=== PATIENT | female | born 1935 | race Caucasian/White ===

== ENCOUNTER 2016-12-22 12:59 | Emergency (ER) | payer OTHER, MEDICARE ==
[~2016-12-22] VITALS: Ht 152.4 cm; Wt 71.0 kg
[~2016-12-22 12:59] MED LIST: ASPI-232 PO; DMD20 PO; ERGO500037 PO; ISOS60TA25 PO; LISI2.5T5 PO; LORA10TA44 PO; MONT1TAB3 PO; NTRGSL4 SL; OXYC-57 PO; POTA20TA16 PO; PRED10TA PO; TEMA30CA4 PO
[2016-12-22 13:01] VITALS: Ht 152.4 cm; Wt 71.0 kg
[2016-12-22 13:29] LABS: BASO % 0.4 %; BASO ABS # 0.03 K/uL (0-0.2); COMPLETE YES; EOS % 3.3 %; HEMATOCRIT 40.1 % (37-47); IG% 0.1 %; LYMPH % 35.8 %; LYMPH ABS # 2.99 K/uL (1.2-3.4); MEAN CELL VOLUME 89.1 fL (80-100); MEAN CORPUSCULAR HEMOGLOBIN 29.8 pg (25-34); MEAN CORPUSCULAR HGB CONC 33.4 g/dl (32-36); MEAN PLATELET VOLUME 9.8 fL (7.4-10.4); MONO % 9.4 %; PLATELET COUNT 217 K/uL (130-400); WHITE BLOOD COUNT 8.36 K/uL (4.8-10.8)
[2016-12-22 13:34] LABS: MANUAL MICROSCOPIC REQUIRED? NO; REVIEW REQ? NO; URINE APPEARANCE CLEAR (CLEAR); URINE BILIRUBIN NEG (NEG); URINE COLOR YELLOW; URINE EPITHELIAL CELL AUTO 0-5 /lpf (0-5); URINE NITRITE NEG (NEG); URINE PH 6.5 (4.5-7.5); URINE SPECIFIC GRAVITY 1.017 (1.000-1.030); UROBILINOGEN NEG (NEG); ZZUR CULT IF INDIC CLEAN CATCH NO
[2016-12-22 13:57] LABS: BUN/CREATININE RATIO 18.9 (10-20); CALCIUM 9.3 mg/dl (8.5-10.1); CREATININE 0.89 mg/dl (0.60-1.20); POTASSIUM 4.2 mmol/L (3.5-5.1)
[2016-12-22 14:00] LABS: ALB/GLOB RATIO 1.3 (0.9-2)
[2016-12-22] MEDS ORDERED: MoRPHine SULFATE 2 MG/ML CARP IV STA (14:02)
[2016-12-22] MEDS ORDERED: ONDANSETRON INJ 2 MG/ML 2 ML VIAL IV STA (14:02)
[2016-12-22] MEDS ORDERED: ATEN-175 PO (14:15)
[2016-12-22] MEDS ORDERED: DMD20 PO (14:15)
[2016-12-22] MEDS ORDERED: LINA1CAP2 PO (14:15)
[2016-12-22] MEDS ORDERED: RRALBUT083 NEB (14:16)
--- NOTE | 2016-12-22 14:47 | DIAGNOSTIC IMAGING REPORT ---
LUMBAR SPINE CT CT DOSE: HISTORY: Low back pain. TECHNIQUE: Multiaxial CT images of the lumbar spine were performed and reformatted in the sagittal and coronal plane without the use of contrast. COMPARISON: Lumbar spine CT 09/25/2014. FINDINGS: Super endplate central compression at L1 remains unchanged. This could be due to a Schmorl's node or old compression deformity. No acute fractures identified within the lumbar spine. Fusion of the L4-5 facets. There is grade I anterolisthesis of L3 on L4 and L4 on L5, unchanged. Moderate facet degenerative changes within the mid lumbar spine. The visualized sacrum is intact. Mild central canal narrowing at L2-L3, and L4-L5. Moderate to severe central canal narrowing at L3-L4, unchanged. IMPRESSION: No significant change compared to the prior study. No acute fractures. Degenerative changes as described above most pronounced at the L3-L4 level. Electronically signed by: Urbano Merchant M.D. 12/22/2016 2:45 PM Dictated Date/Time: 12/22/2016 2:41 PM
--- NOTE | 2016-12-22 14:56 | DIAGNOSTIC IMAGING REPORT ---
ABDOMEN AND PELVIS CT WITHOUT CONTRAST CT DOSE: 746.63 mGy.cm HISTORY: Right lower quadrant pain. eval for right stone TECHNIQUE: Multiaxial CT images of the abdomen and pelvis were performed without the use of intravenous and oral contrast according to the standard department stone protocol. COMPARISON STUDY: Abdomen and pelvis CT 09/25/2014. FINDINGS: There is a punctate stone within the upper pole the right kidney. No left renal calculi. No hydronephrosis. Punctate cortical calcification within the left kidney. A 2.7 cm gallstone, unchanged. No ureteral or bladder calculi. The uterus is surgically absent. Small hiatus hernia. Stable 6 mm lower lobe nodule and stable 4 mm subpleural nodule on image 44. Therefore, these are considered to be benign given the greater than 2 year stability. No acute fractures identified. Suboptimal evaluation for bowel pathology due to the lack of intravenous and oral contrast. However, there is no definite bowel wall thickening or obstruction. Colonic diverticulosis. The appendix appears to be surgically absent. Bilateral renal hypodense lesions are incompletely characterized on this study but are not significantly changed. The unenhanced liver, spleen, adrenal glands, and pancreas are unremarkable. IMPRESSION: 1. Right-sided nephrolithiasis. No hydronephrosis. 2. Cholelithiasis. 3. Additional stable findings as described above. Electronically signed by: Urbano Merchant M.D. 12/22/2016 2:54 PM Dictated Date/Time: 12/22/2016 2:45 PM
[2016-12-22] MEDS ORDERED: OXYC1TAB3 PO (15:30)
[2016-12-22 15:47] VITALS: BP 111/58; PULSE 58; TEMP 36.7; O2SAT 96
--- NOTE | 2016-12-22 17:34 | EMERGENCY ROOM VISIT NOTE ---
History Report prepared by James: Emily Fontana Under the Supervision of: Dr. Bob Gibbons M.D. First contact with patient: 13:51 Chief Complaint: ABDOMINAL PAIN Stated Complaint: LOWER ABD & RT LEG PAIN Nursing Triage Summary: Triage note: Pt reports right abd pain "the pain shoots down my groin and into my right knee." pt reports she has pain for the past week. 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 History of Present Illness The patient is a 81 year old female who presents to the Emergency Room with complaints of intermittent right lower abdominal pain starting 2 days ago. She describes the pain as a hot burning feeling. The pain shoots down into her groin and right knee. She used a hot compress yesterday for her knee which relieved her pain. She has nausea. She denies any melena, urinary symptoms, back pain, fever, or vomiting. She had nerve damage in her groin 15 years ago during a heart catheterization. She was unable to walk for some time. She is no longer having those symptoms, but states that the pain shooting down her right leg feels similar to her experience then. She has a history of IBS and is often constipated. Her last bowel movement was yesterday morning. She has hemorrhoids and has had blood in her stool for the past 30 years. She has had an appendectomy. Source of History: patient Onset: 2 days ago Position: abdomen (RLQ) Quality: burning Timing: intermittent Associated Symptoms: + hematochezia, + nausea, No back pain, No fevers, No melena, No urinary symptoms, No vomiting Note: Pt reports groin pain, right leg pain. Review of Systems See HPI for pertinent positives & negatives. A total of 10 systems reviewed and were otherwise negative. Past Medical & Surgical Medical Problems: (1) Asthma, Unspecified (2) Coronary Atherosclerosis Of [place] Coronary Vessel (3) Hyperlipidemia Nec/Nos (4) Hypertension Nos (5) Mitral Valve Disorder Family History Heart disease Social History Smoking Status: Never Smoker Alcohol Use: none Drug Use: none Marital Status: Housing Status: lives with significant other Occupation Status: retired Current/Historical Medications Scheduled Aspirin (Aspir-81), 81 MG PO DAILY Atenolol (Tenormin), 100 MG PO QPM Ergocalciferol (Vitamin D 90819 Unit), 50,000 UNIT PO WK Isosorbide Mononitrate Ext Rel (Imdur Ext Rel), 60 MG PO BID Linaclotide (Linzess), 290 MCG PO QAM Lisinopril (Lisinopril), 2.5 MG PO DAILY Montelukast Sodium (Singulair), 10 MG PO DAILY Nitroglycerin (Nitrostat), 0.4 MG SL UD Potassium Ext Rel (Klor-Con), 20 MEQ PO DAILY Prednisone (Prednisone), 10 MG PO UD Temazepam (Restoril), 30 MG PO HS Torsemide (Torsemide), 20 MG PO QAM Scheduled PRN Albuterol Sulf (Albuterol Sulfate), 1 VIAL NEB Q4 PRN for SOB/Wheezing Oxycodone Ir (Roxicodone Ir), 2.5 MG PO Q4H PRN for Pain Allergies Coded Allergies: Penicillins (Verified Allergy, Intermediate, HIVES, 12/22/16) Sulfa Drugs (Verified Allergy, Intermediate, 12/22/16) Physical Exam Vital Signs Date Time Temp Pulse Resp B/P Pulse Ox O2 Delivery O2 Flow Rate FiO2 12/22/16 15:47 36.7 58 16 111/58 96 12/22/16 15:26 58 16 111/58 96 Room Air 12/22/16 14:13 56 16 112/55 96 12/22/16 13:01 36.7 64 20 106/56 97 Room Air Physical Exam Constitutional: Vital signs reviewed. Eyes: Pupils are equal round reactive to light. Conjunctiva are noninjected. ENT: Pharynx is clear without erythema or exudate. Mucous membranes are moist. Neck supple without meningeal signs. Respiratory: Clear to auscultation bilaterally. Breath sounds are equal bilaterally. Cardiovascular: Regular rate and rhythm. No rubs or gallops. GI: Soft, nondistended. RLQ tenderness. No guarding. Bowel sounds are present. Musculoskeletal: No peripheral edema. Integumentary: No cyanosis. Neurological: The patient is awake and alert. No focal deficits. Motor and sensation intact throughout lower extremities bilaterally. Psychiatric: Normal affect. Medical Decision & Procedures ER Provider Diagnostic Interpretation: Radiology results as stated below per my review and the radiologist's interpretation: LUMBAR SPINE CT CT DOSE: HISTORY: Low back pain. TECHNIQUE: Multiaxial CT images of the lumbar spine were performed and reformatted in the sagittal and coronal plane without the use of contrast. COMPARISON: Lumbar spine CT 09/25/2014. FINDINGS: Super endplate central compression at L1 remains unchanged. This could be due to a Schmorl's node or old compression deformity. No acute fractures identified within the lumbar spine. Fusion of the L4-5 facets. There is grade I anterolisthesis of L3 on L4 and L4 on L5, unchanged. Moderate facet degenerative changes within the mid lumbar spine. The visualized sacrum is intact. Mild central canal narrowing at L2-L3, and L4-L5. Moderate to severe central canal narrowing at L3-L4, unchanged. IMPRESSION: No significant change compared to the prior study. No acute fractures. Degenerative changes as described above most pronounced at the L3-L4 level. Electronically signed by: Urbano Merchant M.D. 12/22/2016 2:45 PM Dictated Date/Time: 12/22/2016 2:41 PM ABDOMEN AND PELVIS CT WITHOUT CONTRAST CT DOSE: 746.63 mGy.cm HISTORY: Right lower quadrant pain. eval for right stone TECHNIQUE: Multiaxial CT images of the abdomen and pelvis were performed without the use of intravenous and oral contrast according to the standard department stone protocol. COMPARISON STUDY: Abdomen and pelvis CT 09/25/2014. FINDINGS: There is a punctate stone within the upper pole the right kidney. No left renal calculi. No hydronephrosis. Punctate cortical calcification within the left kidney. A 2.7 cm gallstone, unchanged. No ureteral or bladder calculi. The uterus is surgically absent. Small hiatus hernia. Stable 6 mm lower lobe nodule and stable 4 mm subpleural nodule on image 44. Therefore, these are considered to be benign given the greater than 2 year stability. No acute fractures identified. Suboptimal evaluation for bowel pathology due to the lack of intravenous and oral contrast. However, there is no definite bowel wall thickening or obstruction. Colonic diverticulosis. The appendix appears to be surgically absent. Bilateral renal hypodense lesions are incompletely characterized on this study but are not significantly changed. The unenhanced liver, spleen, adrenal glands, and pancreas are unremarkable. IMPRESSION: 1. Right-sided nephrolithiasis. No hydronephrosis. 2. Cholelithiasis. 3. Additional stable findings as described above. Electronically signed by: Urbano Merchant M.D. 12/22/2016 2:54 PM Dictated Date/Time: 12/22/2016 2:45 PM Laboratory Results 12/22/16 13:15 Red Blood Count 4.50, Mean Corpuscular Volume 89.1, Mean Corpuscular Hemoglobin 29.8, Mean Corpuscular Hemoglobin Concent 33.4, Mean Platelet Volume 9.8, Neutrophils (%) (Auto) 51.0, Lymphocytes (%) (Auto) 35.8, Monocytes (%) (Auto) 9.4, Eosinophils (%) (Auto) 3.3, Basophils (%) (Auto) 0.4, Neutrophils # (Auto) 4.26, Lymphocytes # (Auto) 2.99, Monocytes # (Auto) 0.79, Eosinophils # (Auto) 0.28, Basophils # (Auto) 0.03 12/22/16 13:15 Test 12/22/16 13:10 12/22/16 13:15 Urine Color YELLOW Urine Appearance CLEAR (CLEAR) Urine pH 6.5 (4.5-7.5) Urine Specific [place] 1.017 (1.000-1.030) Urine Protein NEG (NEG) Urine Glucose (UA) NEG (NEG) Urine Ketones NEG (NEG) Urine Occult Blood 2+ (NEG) Urine Nitrite NEG (NEG) Urine Bilirubin NEG (NEG) Urine Urobilinogen NEG (NEG) Urine Leukocyte Esterase NEG (NEG) Urine WBC (Auto) 0 /hpf (0-5) Urine RBC (Auto) >30 /hpf (0-4) Urine Hyaline Casts (Auto) 0 /lpf (0-5) Urine Epithelial Cells (Auto) 0-5 /lpf (0-5) Urine Bacteria (Auto) NEG (NEG) White Blood Count 8.36 K/uL (4.8-10.8) Red Blood Count 4.50 M/uL (4.2-5.4) Hemoglobin 13.4 g/dL (12.0-16.0) Hematocrit 40.1 % (37-47) Mean Corpuscular Volume 89.1 fL (80-100) Mean Corpuscular Hemoglobin 29.8 pg (25-34) Mean Corpuscular Hemoglobin Concent 33.4 g/dl (32-36) Platelet Count 217 K/uL (130-400) Mean Platelet Volume 9.8 fL (7.4-10.4) Neutrophils (%) (Auto) 51.0 % Lymphocytes (%) (Auto) 35.8 % Monocytes (%) (Auto) 9.4 % Eosinophils (%) (Auto) 3.3 % Basophils (%) (Auto) 0.4 % Neutrophils # (Auto) 4.26 K/uL (1.4-6.5) Lymphocytes # (Auto) 2.99 K/uL (1.2-3.4) Monocytes # (Auto) 0.79 K/uL (0.11-0.59) Eosinophils # (Auto) 0.28 K/uL (0-0.5) Basophils # (Auto) 0.03 K/uL (0-0.2) RDW Standard Deviation 43.6 fL (36.4-46.3) RDW Coefficient of Variation 13.3 % (11.5-14.5) Immature Granulocyte % (Auto) 0.1 % Immature Granulocyte # (Auto) 0.01 K/uL (0.00-0.02) Anion Gap 6.0 mmol/L (3-11) Est Creatinine Clear Calc Drug Dose 42.9 ml/min Estimated GFR () 70.0 Estimated GFR (Non- 60.4 BUN/Creatinine Ratio 18.9 (10-20) Calcium Level 9.3 mg/dl (8.5-10.1) Total Bilirubin 0.4 mg/dl (0.2-1) Aspartate Amino Transf (AST/SGOT) 19 U/L (15-37) Alanine Aminotransferase (ALT/SGPT) 24 U/L (12-78) Alkaline Phosphatase 77 U/L (45-117) Total Protein 7.4 gm/dl (6.4-8.2) Albumin 4.2 gm/dl (3.4-5.0) Globulin 3.2 gm/dl (2.5-4.0) Albumin/Globulin Ratio 1.3 (0.9-2) Lipase 803 U/L (73-393) Laboratory results as reviewed by me. Medications Administered Medications (Trade) Dose Ordered Sig/Gris Route Start Time Stop Time Status Last Admin Dose Admin Morphine Sulfate (MoRPHine SULFATE INJ) 2 mg NOW STAT IV 12/22/16 14:02 12/22/16 14:04 DC 12/22/16 14:13 2 MG Ondansetron HCl (Zofran Inj) 4 mg NOW STAT IV 12/22/16 14:02 12/22/16 14:04 DC 12/22/16 14:12 4 MG ED Course 1353: The patient was evaluated in room A9. A complete history and physical exam was performed. 1402: Zofran Inj 4 mg IV, Morphine Sulfate 2 mg IV. 1420: I reevaluated the patient. She is feeling better after the morphine. I discussed the test results with her. She informed me she has a history of large gallstones and drinks 8 glasses of wine per week. She denies any upper or mid abdominal pain. There is no tenderness there on exam. 1525: I reevaluated the patient. She feels well at this time. I discussed the test results with her and her family. She will follow up with her PCP later this week. I discussed with her the precautions regarding her pain medications. She verbalized understanding and agreement. She will be discharged home. Medical Decision This is an 81-year-old female who presents with right groin pain rating down her leg. Differential diagnosis includes hernia, kidney stone, pelvic mass, UTI , radiculopathy, neuropathy. I did perform a limited focused review of portions of the patient's old chart on the electronic medical record. The patient has had no recent pertinent visits to this hospital. I did evaluate the patient as noted above. Patient is presenting with pain across her right groin with some intermittent radiation down her right leg. She does have a history of similar pain in her leg from a nerve injury during a cardiac catheterization. She is tender in the right lower abdomen. She does state that the pain is worse when she sits up. She doesn't have any swelling to her leg and is neurologically intact. IV access was established. She was treated with IV morphine 2 mg IV and Zofran IV. I did personally review the patient's urinalysis as described above. I did order and review the patient's blood work as noted in the electronic medical record. Her lipase is elevated over 800. She does state that she has a history of gallstones and drinks about 8 glasses of wine per week. She does not have any upper abdominal pain or tenderness. She does state that she'll stop drinking wine and have her doctor recheck the lipase. I did order a CT of the abdomen and pelvis and lumbosacral spine. I did review the images myself as well as the radiology report as described above. She does have degenerative changes in the lumbar spine but no acute fractures. She also has a right kidney stone but no ureterolithiasis or hydronephrosis. I did discuss the test results with the patient and her family. She is feeling better. At this time the cause of her symptoms is unclear. It is possible she may have passed a kidney stone but I did recommend she follow closely with her doctor for further evaluation. She was discharged with a prescription for oxycodone and given precautions regarding this medication. Impression Primary Impression: Right lower quadrant abdominal pain Additional Impressions: Right leg pain Elevated lipase Scribe Attestation The scribe's documentation has been prepared under my direct and personally reviewed by me in its entirety. I confirm that the note above accurately reflects all work, treatment, procedures, and medical decision making performed by me. Departure Information Dispostion Home / Self-Care Prescriptions Oxycodone Ir (Roxicodone Ir) 5 Mg Tab 2.5 MG PO Q4H Y for Pain, #14 TAB Prov: Bob Gibbons M.D. 12/22/16 Referrals Pari Bales M.D. (PCP) Forms HOME CARE DOCUMENTATION FORM, IMPORTANT VISIT INFORMATION Patient Instructions ED Abd Pain Unkn Cause Fem, My [facility] Additional Instructions You have been examined and treated today on an emergency basis only. This is not a substitute for, or an effort to provide, complete comprehensive medical care. It is impossible to recognize and treat all injuries or illnesses in a single emergency department visit. It is therefore important that you follow up closely with your physician. Call as soon as possible for an appointment. Have your doctor repeat your lipase which was elevated today. Return for worsening symptoms or if you develop fever, vomiting, loss of control of your bowel or bladder, numbness or weakness to your legs, numbness to your private area, difficulty urinating, or any other concerning symptoms. Problem Qualifiers
== END 2016-12-22 15:48 | disposition home or self-care (01) ==
LOC: C.EDB 12:59 → C.EDA 15:48
DX: R10.31 Right lower quadrant pain (principal); M79.604 Pain in right leg; R79.89 Other specified abnormal findings of blood chemistry; J45.909 Unspecified asthma, uncomplicated; I25.10 Atherosclerotic heart disease of native coronary artery without angina pectoris; E78.5 Hyperlipidemia, unspecified; I10 Essential (primary) hypertension; Z79.82 Long term (current) use of aspirin; Z79.899 Other long term (current) drug therapy

== ENCOUNTER 2022-11-18 21:55 | Inpatient (IN) ==
[2022-11-18] MEDS ORDERED: ACETAMINOPHEN 1,000 MG/100 ML VIAL IV STA (22:19)
--- NOTE | 2022-11-18 22:31 | Emergency Department Note ---
History of Present Illness General Chief complaint: Fall Stated complaint: FALL W/ RIGHT HIP PAIN Time Seen by Provider: 11/18/22 22:05 History of Present Illness This 87-year-old female who normally goes to [facility] presents to the ER for fall complaining of right hip pain. She also states she struck her head. No blood thinners. Patient denies loss of conscious, neck pain, chest pain, abdominal pain, back pain, numbness, tingling, localized weakness. No prior hip fracture. Home Medications Medication Instructions Recorded Confirmed Type albuterol sulfate 2.5 mg/3 mL 2.5 mg continuous nebulization Q6 11/19/22 11/19/22 History (0.083 %) solution for nebulization PRN Shortness Of Breath aspirin 81 mg tablet,delayed 81 mg PO DAILY 11/19/22 11/19/22 History release ergocalciferol (vitamin D2) 1,250 1,250 mcg PO WK 11/19/22 11/19/22 History mcg (50,000 unit) capsule isosorbide mononitrate 120 mg 60 mg PO BID 11/19/22 11/19/22 History tablet,extended release 24 hr linaclotide 290 mcg capsule 290 mcg PO DAILY 11/19/22 11/19/22 History (Linzess) metoprolol succinate 25 mg 25 mg PO BID 11/19/22 11/19/22 History tablet,extended release 24 hr nitroglycerin 0.4 mg sublingual 0.4 mg sublingual UD PRN Chest Pain 11/19/22 11/19/22 History tablet omeprazole 40 mg capsule,delayed 40 mg PO DAILYBL 11/19/22 11/19/22 History release potassium chloride 20 mEq 20 meq PO DAILY PRN if taking 11/19/22 11/19/22 History tablet,extended release(part/cryst) torsemide sertraline 100 mg tablet 100 mg PO QPM 11/19/22 11/19/22 History temazepam 30 mg capsule 30 mg PO HS 11/19/22 11/19/22 History torsemide 20 mg tablet 20 mg PO DAILY PRN Fluid Retention 11/19/22 11/19/22 History Allergies Allergy/AdvReac Type Severity Reaction Status Date / Time Penicillins Allergy Intermediate HIVES Verified 08/14/22 09:26 Sulfa (Sulfonamide Allergy Intermediate Verified 08/14/22 09:26 Antibiotics) Past Med/Surg History Medical History (Updated 11/19/22 @ 18:11 by Fide Mosley MD) Fall Irritable bowel disease Surgical History (Updated 11/20/22 @ 15:48 by Wilder Hdz MD) History of hip surgery 11/19/22: (Wilder) R long TFN or IT fx History of right shoulder replacement Family History Other No significant family history Social History Smoking Status: Never smoker Hx Alcohol Use: No Hx Substance Use: No Preferred Language: Malian Communication Ability: Effective Supply Cataloguer Required: No Beliefs That Will Affect Care: None Current Living Situation: Alone Current Living Situation Comment: lives in 1 story condo, no steps Other Information That Helps Us Care for You: No Feels Safe at Home: Yes Safety Concerns: Feels Safe At This Time Assistive Devices: Walker Assistive Devices Comment: has a walker at home, was given to her by neighbor Review of Systems A total of 10 systems reviewed and were otherwise negative Physical Exam Vital Signs Vital Signs - 24 hr 11/18/22 22:52 11/18/22 22:52 11/19/22 00:43 Temperature 36.6 C 36.6 C Temperature Source Oral Oral Pulse Rate 72 Pulse Rate [Apical] 72 67 Respiratory Rate 18 20 20 Respiratory Effort / Characteristics Non-Labored Non-Labored Respiratory Depth Normal Normal Blood Pressure 135/66 Blood Pressure [Right Arm] 135/66 107/53 L Blood Pressure Mean 89 Blood Pressure Mean [Right Arm] 89 71 Pulse Oximetry 98 98 96 Oxygen Delivery Method Room Air Room Air Room Air Sepsis Recent Fever Within 48 Hours No Sepsis New/Unexplained Change in Mental Status N/A Sepsis Action Taken by Nursing No Action Required PHYSICAL EXAM: VITALS: Vitals are noted on the nurse's note and reviewed by myself. Vital signs stable. GENERAL: Pleasant elderly female, in no acute distress, nondiaphoretic, well- developed well-nourished. SKIN: The skin was without obvious lacerations or abrasions. Capillary reflex less than 2 seconds. HEAD: Normocephalic atraumatic. EARS: External auditory canals clear, tympanic membranes pearly smart without erythema or effusion bilaterally. No hemotympanums. No haro sign. No mastoid tenderness. EYES: Pupils equal round and reactive to light and accommodation. Conjunctivae without injection, sclerae without icterus. Extraocular movements intact. NOSE: Patent, turbinates without inflammation or discharge. No sinus tenderness. No septal hematoma or bleeding. MOUTH: Mucous membranes moist. Pharynx without erythema or exudate. Uvula midline. Airway patent. Tongue does not deviate. NECK: Supple without nuchal rigidity. Cervical spine is nontender. Full range of motion of the neck without tenderness. No JVD. HEART: Regular rate and rhythm LUNGS: Clear to auscultation bilaterally without wheezes, rales or rhonchi. No dullness to percussion. No retractions or accessory muscle use. No chest wall tenderness. ABDOMEN: Positive bowel sounds x 4. Normal tympanic percussion. Soft, nontender, without masses or organomegaly. No guarding or rebound tenderness. MUSCULOSKELETAL: No tenderness of the thoracic or lumbar spine. Right hip tender to palpation with concerns for fracture as the leg is shortened and externally rotated. Full range of motion without tenderness to palpation in all other extremities. Peripheral pulses 2+. NEURO: Patient was alert and oriented to person place and time. Normal Mini- Mental status exam. Normal sensation to light and sharp touch. No focal neurological deficits. Course Administered Medications Acetaminophen (Acetaminophen 325 Mg Tab) 650 mg PO Q4H PRN PRN Reason: pain/fever Stop: 12/19/22 02:35 Last Admin: 11/20/22 12:53 Dose: 650 mg Documented By: Admin: 11/20/22 06:26 Dose: 650 mg Documented By: JACE Aspirin (Aspirin 325 Mg Ectab) [facility] [place]: 12/20/22 08:59 Last Admin: 11/20/22 10:32 Dose: 325 mg Documented By: JEROME Isosorbide Mononitrate (Isosorbide Quay Extended Rel 60 Mg Tabcr) 60 mg PO BIDM [facility] Stop: 12/19/22 07:59 Last Admin: 11/20/22 17:42 Dose: Not Given Documented By: Admin: 11/20/22 08:03 Dose: Not Given Documented By: Admin: 11/19/22 16:59 Dose: Not Given Documented By: Admin: 11/19/22 07:41 Dose: 60 mg Documented By: KEVIN Metoprolol Succinate (Metoprolol Succ 25mg Ext Rel Tab) 25 mg PO BID CONSUELO Stop: 12/19/22 08:59 Last Admin: 11/19/22 23:02 Dose: Not Given Documented By: Admin: 11/19/22 07:41 Dose: 25 mg Documented By: KEVIN Ondansetron HCl (Ondansetron Inj 2 Mg/Ml 2 Ml Vial) 4 mg IV Q6H PRN PRN Reason: Nausea And Vomiting Stop: 12/19/22 02:35 Last Admin: 11/19/22 22:11 Dose: 4 mg Documented By: JACE Pantoprazole Sodium (Pantoprazole 40 Mg Tab) 40 mg PO DAILY CONSUELO Stop: 12/19/22 08:59 Last Admin: 11/20/22 10:36 Dose: 40 mg Documented By: Admin: 11/19/22 07:41 Dose: 40 mg Documented By: KEVIN Polyethylene Glycol (Polyethylene (Miralax) 17 Gm Pack) 17 gm PO DAILY CONSUELO Stop: 12/19/22 08:59 Last Admin: 11/20/22 10:36 Dose: 17 gm Documented By: Admin: 11/19/22 07:40 Dose: Not Given Documented By: KEVIN Senna/Docusate Sodium (Docusate Sodium/Senna 50/8.6mg Tab) 2 tab PO HS [facility] Stop: 12/19/22 20:59 Last Admin: 11/20/22 20:03 Dose: Not Given Documented By: Admin: 11/19/22 23:04 Dose: 2 tab Documented By: JACE Sertraline HCl (Sertraline Hcl 100 Mg Tablet) 100 mg PO QPM CONSUELO Stop: 12/19/22 20:59 Last Admin: 11/20/22 20:03 Dose: 100 mg Documented By: Admin: 11/19/22 23:03 Dose: 100 mg Documented By: JACE Temazepam (Temazepam 15 Mg Capsule) 30 mg PO HS [facility] Stop: 12/19/22 20:59 Last Admin: 11/20/22 20:03 Dose: 30 mg Documented By: Admin: 11/19/22 23:06 Dose: 30 mg Documented By: JACE Tramadol HCl (Tramadol Hcl 50 Mg Tablet) 50 mg PO Q4H PRN PRN Reason: MODERATE Pain (4,5,6) & Pre PT Stop: 12/19/22 16:55 Last Admin: 11/19/22 19:35 Dose: 50 mg Documented By: JACE Discontinued Medications Bupivacaine HCl/Epinephrine Bitart (Bupivacaine/Epinephrine 0.5% Mpf 1:200,000 30 Ml Vial) Confirm Administered Dose 30 ml .ROUTE .STK-MED ONE Stop: 11/19/22 13:49 Last Admin: 11/19/22 15:15 Dose: 30 ml Documented By: [id number] Cefazolin Sodium (Cefazolin 2,000 Mg/15 Ml Iv Push) Confirm Administered Dose 2,000 mg IV .STK-MED ONE Stop: 11/19/22 13:56 Last Admin: 11/19/22 14:02 Dose: Not Given Documented By: SADE Ephedrine Sulfate (Ephedrine Sulfate 50 Mg/Ml Amp) 5 mg IV Q5M PRN PRN Reason: PACU Use Only-SBP<90 mmHg Stop: 11/19/22 22:03 Last Admin: 11/19/22 16:20 Dose: 5 mg Documented By: Admin: 11/19/22 16:05 Dose: 5 mg Documented By: NOY Acetaminophen (Ofirmev) 1,000 mg in 100 mls @ 400 mls/hr IV NOW STA Stop: 11/18/22 22:33 Last Infusion: 11/18/22 23:13 Dose: 0 mls/hr Documented By: Admin: 11/18/22 22:58 Dose: 400 mls/hr Documented By: BASHIR Lactated Ringer's (Lr) 1,000 mls @ 75 mls/hr IV .[id number] CONSUELO Stop: 11/19/22 15:55 Last Infusion: 11/19/22 17:31 Dose: 0 mls/hr Documented By: Admin: 11/19/22 02:44 Dose: 75 mls/hr Documented By: TEA Cefazolin Sodium (Ancef 2000mg) 2,000 mg in 15 mls @ 3.75 mls/min IV PREOP ONE; Protocol Stop: 11/19/22 14:04 Last Admin: 11/19/22 14:02 Dose: 3.75 mls/min Documented By: [id number] Tranexamic Acid (Tranexamic Acid / 0.7% Nacl) 1,000 mg in 100 mls @ 600 mls/hr IV NOW STA Stop: 11/19/22 15:08 Last Infusion: 11/19/22 17:27 Dose: 0 mls/hr Documented By: Admin: 11/19/22 15:10 Dose: 600 mls/hr Documented By: [id number] Cefazolin Sodium (Ancef 2000mg) 2,000 mg in 15 mls @ 3.75 mls/min IV Q8H CONSUELO; Protocol Stop: 11/20/22 05:48 Last Admin: 11/20/22 06:16 Dose: 3.75 mls/min Documented By: Admin: 11/19/22 22:10 Dose: 3.75 mls/min Documented By: JACE Lactated Ringer's (Lr) 1,000 mls @ 75 mls/hr IV .[id number] CONSUELO Stop: 11/20/22 06:49 Last Infusion: 11/20/22 06:17 Dose: 0 mls/hr Documented By: Admin: 11/19/22 17:46 Dose: 75 mls/hr Documented By: KAMARI Sodium Chloride (Nss 1000ml) 500 mls @ 999 mls/hr IV .Q31M ONE Stop: 11/20/22 17:52 Last Infusion: 11/20/22 18:20 Dose: 0 mls/hr Documented By: Admin: 11/20/22 17:43 Dose: 999 mls/hr Documented By: JEROME Linaclotide (Linaclotide 145 Mcg Capsule) 290 mcg PO DAILY [facility] Stop: 12/19/22 08:59 Last Admin: 11/20/22 10:36 Dose: Not Given Documented By: Admin: 11/19/22 08:38 Dose: Not Given Documented By: KEVIN Morphine Sulfate (Morphine Sulfate 2 Mg/Ml Carp) Confirm Administered Dose 2 mg .ROUTE .STK-MED ONE Stop: 11/19/22 01:53 Last Admin: 11/19/22 01:54 Dose: 2 mg Documented By: BASHIR Morphine Sulfate (Morphine Sulfate 2 Mg/Ml Carp) 2 mg IV Q3H PRN PRN Reason: Pain (6,7,8,9,10) Stop: 12/03/22 02:35 Last Admin: 11/19/22 06:35 Dose: 2 mg Documented By: TEA Medical Decision Making Medical Records Attestation: I reviewed the patient's medical records. Home Medications Current Medication List: was personally reviewed by me Laboratory Data Attestation: I reviewed the patient's lab results. 11/18/22 22:48 11/18/22 22:48 Lab Results 11/18/22 11/18/22 11/18/22 Range/Units 22:46 22:48 22:48 WBC 12.55 H (4.8-10.8) K/ul RBC 3.88 L (4.20-5.40) M/uL Hgb 11.3 L (12.0-16.0) g/dl Hct 33.9 L (37.0-47.0) % MCV 87.4 (80.0-100.0) fL MCH 29.1 (25.0-34.0) pg MCHC 33.3 (32.0-36.0) g/dL RDW Std Deviation 42.1 (36.4-46.3) fL RDW Coeff of Leonardo 13.2 (11.5-14.5) % Plt Count 252 (130-400) K/uL MPV 9.6 (9.4-12.4) fL Immature Gran % (Auto) 0.2 % Neut % (Auto) 76.7 % Lymph % (Auto) 14.6 % Quay % (Auto) 6.3 % Eos % (Auto) 1.8 % Baso % (Auto) 0.4 % Neut # (Auto) 9.62 H (1.40-6.50) K/uL Lymph # (Auto) 1.83 (1.2-3.4) K/uL Quay # (Auto) 0.79 H (0.11-0.59) K/uL Eos # (Auto) 0.23 (0-0.50) K/uL Baso # (Auto) 0.05 (0-0.2) K/uL Immature Gran # (Auto) 0.03 (0.01-0.20) K/uL PT 10.8 (9.0-12.0) Seconds INR 1.0 (0.9-1.1) APTT 26.0 (21.0-31.0) Seconds PTT Ratio 0.9 Sodium (136-145) mmol/L Potassium (3.5-5.1) mmol/L Chloride (98-107) mmol/L Carbon Dioxide (21-32) mmol/L Anion Gap (3-11) BUN (6-23) mg/dl Creatinine (0.6-1.2) mg/dl Est Cr Clr Drug Dosing ml/min Est GFR ( Amer) ml/min Est GFR (Non-Af Amer) ml/min BUN/Creatinine Ratio (10-20) Glucose (70-99(Fasting)) mg/dl Calcium (8.5-10.1) mg/dl Total Bilirubin (0.2-1.0) mg/dl AST (13-39) U/L ALT (7-52) U/L Alkaline Phosphatase (34-104) U/L Total Protein (6.0-8.3) gm/dl Albumin (3.4-5.0) gm/dl Globulin (2.5-4.0) gm/dl Albumin/Globulin Ratio (0.9-2) Urine Color Yellow Urine Appearance Clear (Clear) Urine pH 8.0 H (4.5-7.5) Ur Specific Iliff 1.011 (1.000-1.030) Urine Protein Negative (Negative) Urine Glucose (UA) Negative (Negative) Urine Ketones Negative (Negative) Urine Blood 1+ H (Negative) Urine Nitrite Negative (Negative) Urine Bilirubin Negative (Negative) Urine Urobilinogen Negative (Negative) Ur Leukocyte Esterase Negative (Negative) Urine WBC (Auto) 1-5 (0-5) /hpf Urine RBC (Auto) >30 H (0-4) /hpf U Hyaline Cast (Auto) 1-5 (0-5) /lpf U Epithel Cells (Auto) 10-20 H (0-5) /lpf Urine Bacteria (Auto) Negative (Negative) SARS-CoV-2, RNA, NAAT (NEGATIVE) 11/18/22 11/18/22 Range/Units 22:48 22:49 WBC (4.8-10.8) K/ul RBC (4.20-5.40) M/uL Hgb (12.0-16.0) g/dl Hct (37.0-47.0) % MCV (80.0-100.0) fL MCH (25.0-34.0) pg MCHC (32.0-36.0) g/dL RDW Std Deviation (36.4-46.3) fL RDW Coeff of Leonardo (11.5-14.5) % Plt Count (130-400) K/uL MPV (9.4-12.4) fL Immature Gran % (Auto) % Neut % (Auto) % Lymph % (Auto) % Quay % (Auto) % Eos % (Auto) % Baso % (Auto) % Neut # (Auto) (1.40-6.50) K/uL Lymph # (Auto) (1.2-3.4) K/uL Quay # (Auto) (0.11-0.59) K/uL Eos # (Auto) (0-0.50) K/uL Baso # (Auto) (0-0.2) K/uL Immature Gran # (Auto) (0.01-0.20) K/uL PT (9.0-12.0) Seconds INR (0.9-1.1) APTT (21.0-31.0) Seconds PTT Ratio Sodium 137 (136-145) mmol/L Potassium 3.8 (3.5-5.1) mmol/L Chloride 100 (98-107) mmol/L Carbon Dioxide 28 (21-32) mmol/L Anion Gap 9 (3-11) BUN 17 (6-23) mg/dl Creatinine 0.84 (0.6-1.2) mg/dl Est Cr Clr Drug Dosing 36.7 ml/min Est GFR ( Amer) 71.9 ml/min Est GFR (Non-Af Amer) 62.1 ml/min BUN/Creatinine Ratio 20.2 H (10-20) Glucose 117 H (70-99(Fasting)) mg/dl Calcium 9.6 (8.5-10.1) mg/dl Total Bilirubin 0.3 (0.2-1.0) mg/dl AST 22 (13-39) U/L ALT 11 (7-52) U/L Alkaline Phosphatase 66 (34-104) U/L Total Protein 7.0 (6.0-8.3) gm/dl Albumin 4.1 (3.4-5.0) gm/dl Globulin 2.9 (2.5-4.0) gm/dl Albumin/Globulin Ratio 1.4 (0.9-2) Urine Color Urine Appearance (Clear) Urine pH (4.5-7.5) Ur Specific Iliff (1.000-1.030) Urine Protein (Negative) Urine Glucose (UA) (Negative) Urine Ketones (Negative) Urine Blood (Negative) Urine Nitrite (Negative) Urine Bilirubin (Negative) Urine Urobilinogen (Negative) Ur Leukocyte Esterase (Negative) Urine WBC (Auto) (0-5) /hpf Urine RBC (Auto) (0-4) /hpf U Hyaline Cast (Auto) (0-5) /lpf U Epithel Cells (Auto) (0-5) /lpf Urine Bacteria (Auto) (Negative) SARS-CoV-2, RNA, NAAT NEGATIVE (NEGATIVE) Imaging Data Attestation: I personally reviewed and interpreted this imaging study as follows: Radiologist's Impression: Cervical Spine CT 11/18/22 22:10 Exam(s): CT C SPINE EXAM: CT Cervical Spine Without Intravenous Contrast CLINICAL HISTORY: Reason for exam: fall, HI. TECHNIQUE: Axial computed tomography images of the cervical spine without intravenous contrast. CTDI is 16.07 mGy and DLP is 322.65 mGy-cm. Automated exposure control was utilized for the study. A dose lowering technique was utilized adhering to the principles of ALARA. COMPARISON: No relevant prior studies available. FINDINGS: The vertebral body heights are maintained. There is no spondylolisthesis. The craniocervical junction is intact. The atlanto-dens interval is maintained. The dens is intact. Multilevel cervical spondylosis and degenerative disc disease. Straightening of the cervical lordosis. The unenhanced neck soft tissues are grossly unremarkable. The visualized lung apices are grossly clear. IMPRESSION: No acute fracture or subluxation of the cervical spine. Electronically signed by: Russel Roberson MD 11/19/22 00:[address] 11/18/22 22:10 Exam(s): CT HEAD Without Contrast EXAM: CT Head Without Intravenous Contrast CLINICAL HISTORY: Reason for exam: fall, HI. TECHNIQUE: Axial computed tomography images of the head/brain without intravenous contrast. CTDI is 16.07 mGy and DLP is 322.65 mGy-cm. Automated exposure control was utilized for the study. A dose lowering technique was utilized adhering to the principles of ALARA. COMPARISON: No relevant prior studies available. FINDINGS: No acute intracranial hemorrhage. No midline shift or mass effect. The territorial smart-white matter differentiation is maintained throughout. Age-related cerebral volume loss. Periventricular and subcortical white matter hypoattenuation, consistent with chronic microangiopathy. The visualized orbits appear grossly unremarkable. The calvarium is intact. The visualized paranasal sinuses and mastoid air cells are grossly clear. IMPRESSION: No acute intracranial hemorrhage, midline shift, or mass effect. Electronically signed by: Russel Roberson MD 11/19/22 00:30 AM Head Trauma GCS Score: 15 MDM Narrative Prior records/ancillary studies reviewed. Triage Nursing notes reviewed. Additional history obtained from EMS. The patient's history was concerning for traumatic injury Differential diagnosis: Etiologies such as fracture, dislocation, intra-abdominal, pneumothorax, intrathoracic , intracranial, neurologic, as well as other traumatic pathologies were entertained. Physical examination findings: As above. The patients vitals were stable. ER treatment provided: IV Normal Saline hydration, Tylenol was ordered. Cochran was ordered An order was placed for continuous cardiac monitoring. The monitor shows a rate of 60-100 with a sinus rhythm per my interpretation. On reassessment the patient felt better. Vital signs were stable. Diagnostic interpretation by me: EKG ordered for preop EKG: Normal sinus, right bundle, poor baseline, rate of 68. Impression normal sinus rhythm with a right bundle branch block independent interpreted by myself The labs Independently Interpreted by myself revealed mild anemia, mild leukocytosis Imaging studies: Hip x-ray concerning for hip fracture per my independent interpretation Head and cervical CT is negative for intracranial bleed or fracture per my independent interpretation and radiology interpretation was reviewed Consultation: A consultation was placed with medicine. The case was discussed and diagnostics were reviewed. The patient was admitted to the medical service for hip fracture. This appears to be consistent with fall with hip fracture. Labs and diagnostics were independently interpreted by myself. Medicine was consulted and case was discussed. Patient will be admitted to the medical service for hip fracture. Patient is agreeable. No other concerns per patient. Patient was neurovascularly neurologic intact. By the evaluation outlined above emergent etiologies such as intra-abdominal, pneumothorax, pulmonary contusion, hemo thorax, intracranial, neurologic,as well as others were deemed relatively unlikely. The pt informed about the findings as listed above. All questions were answered and pleased with the treatment. The chart was completed utilizing [employer] voice recognition software. Grammatical errors, random word insertions, pronoun errors, and incomplete sentences are an occassional consequence of this system due to software limitations, ambient noise, and hardware issues. Any formal questions or concerns about the content, text, or information contained within the body of this dictation should be directly addressed to the physician assistant professor of music for clarification. Impression & Plan Closed fracture of right hip, Fall, Head injury Discharge Plan Visit Data Chief Complaint: Fall Stated Complaint: FALL W/ RIGHT HIP PAIN ED Provider: Daljit Van ED Midlevel Provider: Mary Bose Discharge Problem: Closed fracture of right hip, Fall, Head injury Patient Disposition: Admitted As Inpatient Condition: Good Discharge Instructions Interventions: ED Discharge Assessment Last Done: 11/19/22 02:02 Addendum November 21, 2022 01:57 HPI: The patient is an 87-year-old woman who presents to the emergency department with right hip pain after suffering a ground-level fall. She did report head strike but denies LOC. The patient is not on anticoagulation. A/P: CT head and cervical spine negative for acute abnormality. Plain film demonstrates intertrochanteric fracture of the right femur per preliminary review. WBC 12.5K nonspecific. H/H 11.3/33.9 without prior values for comparison. Chemistry without metabolic acidosis. LFTs unremarkable. UA without convincing evidence of infection. COVID-19 RNA, HILARIO test was negative. Patient was admitted to the medicine service for further evaluation and management including orthopedic consultation. I was consulted by the Advanced Practice Provider.I performed a substantive portion of the visit.This includes aspects of the HPI, MDM, diagnostic interpretations, and disposition/plan. I discussed the case with the GABBY, examined the patient, and agree with the findings and plan as documented in GABBY Juice's note. Closed fracture of right hip Qualifiers: Encounter type: initial encounter Qualified Code(s): S72.001A - Fracture of unspecified part of neck of right femur, initial encounter for closed fracture
[2022-11-18 23:03] LABS: Appearance Urine Clear (Clear); Bacteria Urine Automated Negative (Negative); Bilirubin Urine Negative (Negative); Blood Urine 1+ (Negative); Color Urine Yellow; Glucose Urine UA Negative (Negative); Ketones Urine Negative (Negative); Leukocyte Esterase Urine Negative (Negative); Nitrite Urine Negative (Negative); Protein Urine Negative (Negative); RBC Urine Automated >30 /hpf (0-4); Specific Gravity Urine 1.011 (1.000-1.030); Urobilinogen Urine Negative (Negative)
[2022-11-18 23:08] LABS: Basophils # (auto) 0.05 K/uL (0-0.2); Basophils % (auto) 0.4 %; Eosinophils # (auto) 0.23 K/uL (0-0.50); Eosinophils % (auto) 1.8 %; Hematocrit (blood only) 33.9 % (37.0-47.0); Hemoglobin 11.3 g/dl (12.0-16.0); Immature Granulocytes # (auto) 0.03 K/uL (0.01-0.20); Immature Granulocytes % (auto) 0.2 %; Lymphocytes # (auto) 1.83 K/uL (1.2-3.4); Lymphocytes % (auto) 14.6 %; Mean Corpuscular Hemoglobin 29.1 pg (25.0-34.0); Mean Corpuscular Hgb Conc 33.3 g/dL (32.0-36.0); Mean Corpuscular Volume 87.4 fL (80.0-100.0); Mean Platelet Volume 9.6 fL (9.4-12.4); Monocytes # (auto) 0.79 K/uL (0.11-0.59); Monocytes % (auto) 6.3 %; Neutrophils # (auto) 9.62 K/uL (1.40-6.50); Neutrophils % (auto) 76.7 %; Platelet Count 252 K/uL (130-400); RDW Coefficient of Variation 13.2 % (11.5-14.5); RDW Standard Deviation 42.1 fL (36.4-46.3); Red Blood Count 3.88 M/uL (4.20-5.40); White Blood Count 12.55 K/ul (4.8-10.8)
[2022-11-18 23:21] LABS: Albumin Globulin Ratio 1.4 (0.9-2); Albumin Level 4.1 gm/dl (3.4-5.0); BUN Creatinine Ratio 20.2 (10-20); Bilirubin,Total 0.3 mg/dl (0.2-1.0); Calcium 9.6 mg/dl (8.5-10.1); Creatinine Clr Calc Pharmacy 36.7 ml/min; Est GFR (African American) 71.9 ml/min; Est GFR (Non-African American) 62.1 ml/min; Globulin 2.9 gm/dl (2.5-4.0); Potassium 3.8 mmol/L (3.5-5.1)
[2022-11-18 23:37] LABS: Partial Thromboplastin Ratio 0.9; Prothrombin Time 10.8 Seconds (9.0-12.0)
--- NOTE | 2022-11-19 00:31 | CT Scan Report ---
Exam(s): CT HEAD Without Contrast EXAM: CT Head Without Intravenous Contrast CLINICAL HISTORY: Reason for exam: fall, HI. TECHNIQUE: Axial computed tomography images of the head/brain without intravenous contrast. CTDI is 16.07 mGy and DLP is 322.65 mGy-cm. Automated exposure control was utilized for the study. A dose lowering technique was utilized adhering to the principles of ALARA. COMPARISON: No relevant prior studies available. FINDINGS: No acute intracranial hemorrhage. No midline shift or mass effect. The territorial smart-white matter differentiation is maintained throughout. Age-related cerebral volume loss. Periventricular and subcortical white matter hypoattenuation, consistent with chronic microangiopathy. The visualized orbits appear grossly unremarkable. The calvarium is intact. The visualized paranasal sinuses and mastoid air cells are grossly clear. IMPRESSION: No acute intracranial hemorrhage, midline shift, or mass effect. Electronically signed by: Russel Roberson MD 11/19/22 00:30 AM
--- NOTE | 2022-11-19 00:39 | CT Scan Report ---
Exam(s): CT C SPINE EXAM: CT Cervical Spine Without Intravenous Contrast CLINICAL HISTORY: Reason for exam: fall, HI. TECHNIQUE: Axial computed tomography images of the cervical spine without intravenous contrast. CTDI is 16.07 mGy and DLP is 322.65 mGy-cm. Automated exposure control was utilized for the study. A dose lowering technique was utilized adhering to the principles of ALARA. COMPARISON: No relevant prior studies available. FINDINGS: The vertebral body heights are maintained. There is no spondylolisthesis. The craniocervical junction is intact. The atlanto-dens interval is maintained. The dens is intact. Multilevel cervical spondylosis and degenerative disc disease. Straightening of the cervical lordosis. The unenhanced neck soft tissues are grossly unremarkable. The visualized lung apices are grossly clear. IMPRESSION: No acute fracture or subluxation of the cervical spine. Electronically signed by: Russel Roberson MD 11/19/22 00:38 AM
--- NOTE | 2022-11-19 01:35 | History & Physical Report ---
Date of Service November 19, 2022 Assessment & Plan (1) Closed fracture of right hip: Plan: 87-year-old female presenting from home following a ground-level fall resulting in acute right hip pain, concern for fracture. Admit to medical Keep n.p.o. Neurovascular checks every 4 hours Urinary catheter management per unit standards Tylenol as needed for pain Morphine as needed for pain Zofran as needed for nausea MiraLAX as needed for constipation Orthopedic surgery consultation appreciated (2) Chronic constipation: Plan: Chronic. MiraLAX 17 g p.o. daily Continue Linzess (3) Restrictive cardiomyopathy: Plan: Patient reports no cardiac complaints. No evidence of failure. Continue isosorbide mononitrate 60 mg p.o. twice daily Continue metoprolol 25 mg p.o. twice daily F/E/NLR at 75 mL/h x 1 L, monitor electrolytes, n.p.o. for now ProphylaxisSCDs to bilateral lower extremities CodeDNR/DNI per discussion with patient Dispositionadmit to medical floor History of Present Illness Chief Complaint: Fall, right hip Primary Care Provider: Pari Bales MD Kat Germain is a pleasant 87-year-old female with history of IBS and constipation presenting from home after sustaining a ground-level fall. Patient lives alone. She was standing at her kitchen table when her phone rang. She went to answer the phone and ended up losing her balance and falling onto the kitchen floor. She landed on her right hip and struck her head as well off of the laminate floor. She did not lose consciousness. Patient was unable to get up immediately but was able to call family and emergency services. She experienced severe pain in her right hip. No additional complaints. Patient denies chest pain, palpitations, dizziness, nausea, vomiting, diarrhea. No fevers, chills, cough, shortness of breath. In the ER she is afebrile, hemodynamically stable, no acute distress. Complaining of pain in her right hip, otherwise doing well. ER course: Tylenol Allergies Allergy/AdvReac Type Severity Reaction Status Date / Time Penicillins Allergy Intermediate HIVES Verified 08/14/22 09:26 Sulfa (Sulfonamide Allergy Intermediate Verified 08/14/22 09:26 Antibiotics) Home Medications Medication Instructions Recorded Confirmed Type albuterol sulfate 2.5 mg/3 mL 2.5 mg continuous nebulization Q6 11/19/22 11/19/22 History (0.083 %) solution for nebulization PRN Shortness Of Breath aspirin 81 mg tablet,delayed 81 mg PO DAILY 11/19/22 11/19/22 History release ergocalciferol (vitamin D2) 1,250 1,250 mcg PO WK 11/19/22 11/19/22 History mcg (50,000 unit) capsule isosorbide mononitrate 120 mg 60 mg PO BID 11/19/22 11/19/22 History tablet,extended release 24 hr linaclotide 290 mcg capsule 290 mcg PO DAILY 11/19/22 11/19/22 History (Linzess) metoprolol succinate 25 mg 25 mg PO BID 11/19/22 11/19/22 History tablet,extended release 24 hr nitroglycerin 0.4 mg sublingual 0.4 mg sublingual UD PRN Chest Pain 11/19/22 11/19/22 History tablet omeprazole 40 mg capsule,delayed 40 mg PO DAILYBL 11/19/22 11/19/22 History release potassium chloride 20 mEq 20 meq PO DAILY PRN if taking 11/19/22 11/19/22 History tablet,extended release(part/cryst) torsemide sertraline 100 mg tablet 100 mg PO QPM 11/19/22 11/19/22 History temazepam 30 mg capsule 30 mg PO HS 11/19/22 11/19/22 History torsemide 20 mg tablet 20 mg PO DAILY PRN Fluid Retention 11/19/22 11/19/22 History Past Med/Surg History Medical History (Updated 11/19/22 @ 03:46 by Anabela Munson DO) Fall Irritable bowel disease Surgical History (Updated 11/19/22 @ 03:41 by Anabela Munson DO) History of right shoulder replacement Family History Other No significant family history Social History Smoking Status: Never smoker Hx Alcohol Use: No Hx Substance Use: No Preferred Language: Chinese Communication Ability: Effective Heavy Cleaner Required: No Beliefs That Will Affect Care: None Current Living Situation: Alone Current Living Situation Comment: lives in 1 story condo, no steps Other Information That Helps Us Care for You: No Feels Safe at Home: Yes Safety Concerns: Feels Safe At This Time Assistive Devices: Denture - Upper, Denture - Lower, Glasses and Walker Assistive Devices Comment: has a walker at home, was given to her by neighbor Review of Systems Review of Systems: All systems reviewed & are unremarkable except as noted in HPI & below Physical Exam Physical Exam: General: patient resting comfortably, NAD, non-toxic in appearance, AA&O x 4 Skin: warm, dry, intact, no rashes or lesions HEENT: NC/AT, PERRL, EOMI, anicteric sclera, conjunctiva without injection, external ear normal to inspection and nontender, nares patent, moist mucus membranes, dentition intact, no oropharyngeal lesions, neck supple, trachea midline, no LAD, no thyromegaly, no JVD Heart: +S1/S2, regular, no m/r/g Lungs: equal air entry bilaterally, no rales/rhonchi/wheezes Abd: +BS, soft, NT/ND, no masses/organomegaly/ascites Ext: warm, 2+ pulses in UE/LE bilaterally, no clubbing/cyanosis or edema Neuro: nonfocal, patient AA&O x 4, speech intact, no facial droop, moving all extremities on command with equal strength 5/5 Results & Data Results & Data Vital Signs (Past 12 Hours) Vital Signs Temp Pulse Pulse Resp BP BP Pulse Ox 11/19/22 00:43 67 20 107/53 L 96 11/18/22 22:52 36.6 C 72 20 135/66 98 11/18/22 22:52 36.6 C 72 18 135/66 98 O2 Del Method 11/19/22 00:43 Room Air 11/18/22 22:52 Room Air 11/18/22 22:52 Room Air Laboratory Results Laboratory Results WBC 12.55 K/ul (4.8-10.8) H 11/18/22 22:48 RBC 3.88 M/uL (4.20-5.40) L 11/18/22 22:48 Hgb 11.3 g/dl (12.0-16.0) L 11/18/22 22:48 Hct 33.9 % (37.0-47.0) L 11/18/22 22:48 MCV 87.4 fL (80.0-100.0) 11/18/22 22:48 MCH 29.1 pg (25.0-34.0) 11/18/22 22:48 MCHC 33.3 g/dL (32.0-36.0) 11/18/22 22:48 RDW Std Deviation 42.1 fL (36.4-46.3) 11/18/22 22:48 RDW Coeff of Leonardo 13.2 % (11.5-14.5) 11/18/22 22:48 Plt Count 252 K/uL (130-400) 11/18/22 22:48 MPV 9.6 fL (9.4-12.4) 11/18/22 22:48 Immature Gran % (Auto) 0.2 % 11/18/22 22:48 Neut % (Auto) 76.7 % 11/18/22 22:48 Lymph % (Auto) 14.6 % 11/18/22 22:48 Meade % (Auto) 6.3 % 11/18/22 22:48 Eos % (Auto) 1.8 % 11/18/22 22:48 Baso % (Auto) 0.4 % 11/18/22 22:48 Neut # (Auto) 9.62 K/uL (1.40-6.50) H 11/18/22 22:48 Lymph # (Auto) 1.83 K/uL (1.2-3.4) 11/18/22 22:48 Meade # (Auto) 0.79 K/uL (0.11-0.59) H 11/18/22 22:48 Eos # (Auto) 0.23 K/uL (0-0.50) 11/18/22 22:48 Baso # (Auto) 0.05 K/uL (0-0.2) 11/18/22 22:48 Immature Gran # (Auto) 0.03 K/uL (0.01-0.20) 11/18/22 22:48 PT 10.8 Seconds (9.0-12.0) 11/18/22 22:48 INR 1.0 (0.9-1.1) 11/18/22 22:48 APTT 26.0 Seconds (21.0-31.0) 11/18/22 22:48 PTT Ratio 0.9 11/18/22 22:48 Sodium 137 mmol/L (136-145) 11/18/22 22:48 Potassium 3.8 mmol/L (3.5-5.1) 11/18/22 22:48 Chloride 100 mmol/L (98-107) 11/18/22 22:48 Carbon Dioxide 28 mmol/L (21-32) 11/18/22 22:48 Anion Gap 9 (3-11) 11/18/22 22:48 BUN 17 mg/dl (6-23) 11/18/22 22:48 Creatinine 0.84 mg/dl (0.6-1.2) 11/18/22 22:48 Est Cr Clr Drug Dosing 36.7 ml/min 11/18/22 22:48 Est GFR ( Amer) 71.9 ml/min 11/18/22 22:48 Est GFR (Non-Af Amer) 62.1 ml/min 11/18/22 22:48 BUN/Creatinine Ratio 20.2 (10-20) H 11/18/22 22:48 Glucose 117 mg/dl (70-99(Fasting)) H 11/18/22 22:48 Calcium 9.6 mg/dl (8.5-10.1) 11/18/22 22:48 Total Bilirubin 0.3 mg/dl (0.2-1.0) 11/18/22 22:48 AST 22 U/L (13-39) 11/18/22 22:48 ALT 11 U/L (7-52) 11/18/22 22:48 Alkaline Phosphatase 66 U/L (34-104) 11/18/22 22:48 Total Protein 7.0 gm/dl (6.0-8.3) 11/18/22 22:48 Albumin 4.1 gm/dl (3.4-5.0) 11/18/22 22:48 Globulin 2.9 gm/dl (2.5-4.0) 11/18/22 22:48 Albumin/Globulin Ratio 1.4 (0.9-2) 11/18/22 22:48 Urine Color Yellow 11/18/22 22:46 Urine Appearance Clear (Clear) 11/18/22 22:46 Urine pH 8.0 (4.5-7.5) H 11/18/22 22:46 Ur Specific [place] 1.011 (1.000-1.030) 11/18/22 22:46 Urine Protein Negative (Negative) 11/18/22 22:46 Urine Glucose (UA) Negative (Negative) 11/18/22 22:46 Urine Ketones Negative (Negative) 11/18/22 22:46 Urine Blood 1+ (Negative) H 11/18/22 22:46 Urine Nitrite Negative (Negative) 11/18/22 22:46 Urine Bilirubin Negative (Negative) 11/18/22 22:46 Urine Urobilinogen Negative (Negative) 11/18/22 22:46 Ur Leukocyte Esterase Negative (Negative) 11/18/22 22:46 Urine WBC (Auto) 1-5 /hpf (0-5) 11/18/22 22:46 Urine RBC (Auto) >30 /hpf (0-4) H 11/18/22 22:46 U Hyaline Cast (Auto) 1-5 /lpf (0-5) 11/18/22 22:46 U Epithel Cells (Auto) 10-20 /lpf (0-5) H 11/18/22 22:46 Urine Bacteria (Auto) Negative (Negative) 11/18/22 22:46 SARS-CoV-2, RNA, NAAT NEGATIVE (NEGATIVE) 11/18/22 22:[address] 11/18/22 22:10 Exam(s): CT C SPINE EXAM: CT Cervical Spine Without Intravenous Contrast CLINICAL HISTORY: Reason for exam: fall, HI. TECHNIQUE: Axial computed tomography images of the cervical spine without intravenous contrast. CTDI is 16.07 mGy and DLP is 322.65 mGy-cm. Automated exposure control was utilized for the study. A dose lowering technique was utilized adhering to the principles of ALARA. COMPARISON: No relevant prior studies available. FINDINGS: The vertebral body heights are maintained. There is no spondylolisthesis. The craniocervical junction is intact. The atlanto-dens interval is maintained. The dens is intact. Multilevel cervical spondylosis and degenerative disc disease. Straightening of the cervical lordosis. The unenhanced neck soft tissues are grossly unremarkable. The visualized lung apices are grossly clear. IMPRESSION: No acute fracture or subluxation of the cervical spine. Electronically signed by: Russel Roberson MD 11/19/22 00:[address] 11/18/22 22:10 Exam(s): CT HEAD Without Contrast EXAM: CT Head Without Intravenous Contrast CLINICAL HISTORY: Reason for exam: fall, [place]. TECHNIQUE: Axial computed tomography images of the head/brain without intravenous contrast. CTDI is 16.07 mGy and DLP is 322.65 mGy-cm. Automated exposure control was utilized for the study. A dose lowering technique was utilized adhering to the principles of ALARA. COMPARISON: No relevant prior studies available. FINDINGS: No acute intracranial hemorrhage. No midline shift or mass effect. The territorial smart-white matter differentiation is maintained throughout. Age-related cerebral volume loss. Periventricular and subcortical white matter hypoattenuation, consistent with chronic microangiopathy. The visualized orbits appear grossly unremarkable. The calvarium is intact. The visualized paranasal sinuses and mastoid air cells are grossly clear. IMPRESSION: No acute intracranial hemorrhage, midline shift, or mass effect. Electronically signed by: Russel Roberson MD 11/19/22 00:30 AM Code Status & VTE Plan VTE Prophylaxis Plan VTE Prophylaxis will be ordered: Yes PG Care Time/CCT Total # of Minutes Spent Total Time Spent with Patient: Total time spent is greater than 50% in coordination of care (as documented) at patient's floor/unit and/or counseling patient: Coding Level of Care Code 86442 INT INP/OBS CARE 2/55MIN Diagnoses Closed fracture of right hip S72.001A Encounter type: initial encounter Chronic constipation K59.09 Restrictive cardiomyopathy I42.5 (1) Closed fracture of right hip Encounter type: initial encounter Qualified Code(s): S72.001A - Fracture of unspecified part of neck of right femur, initial encounter for closed fracture
[2022-11-19] MEDS ORDERED: MoRPHine SULFATE 2 MG/ML CARP ONE (01:52)
[2022-11-19] MEDS ORDERED: NALOXONE HCL 0.4 MG/1 ML VIAL/CARP IV PRN (02:36)
[2022-11-19] MEDS ORDERED: MAGNESIUM HYDROXIDE SUSP 30 ML UDC PO PRN (02:36)
[2022-11-19] MEDS ORDERED: ALBUTEROL 0.083% NEBU SOLN 3 ML VIAL NEB PRN (02:36)
[2022-11-19] MEDS ORDERED: MoRPHine SULFATE 2 MG/ML CARP IV PRN ×2 (02:36)
[2022-11-19] MEDS ORDERED: bisacodyL 10 MG SUPP PR PRN (02:36)
[2022-11-19] MEDS ORDERED: LACTATED RINGER'S 1,000 ML IV SCH ×2 (02:36→17:30)
[2022-11-19] MEDS ORDERED: ONDANSETRON INJ 2 MG/ML 2 ML VIAL IV PRN ×2 (02:36→14:03)
--- NOTE | 2022-11-19 06:45 | Orthopedic Consultation ---
Date of Service November 19, 2022 Assessment & Plan (1) Closed fracture of right hip: I discussed the diagnosis and treatment options with her at bedside. I recommended intramedullary nail fixation of the right hip. She understands the risk, benefits, and alternatives to the procedure and is electing to proceed. She is currently NPO. A member of the [facility] physician group orthopedic team will plan on doing the procedure sometime later today. History of Present Illness Reason for Consultation: Intertrochanteric fracture of the right hip. Requesting Physician: . Attending Physician: Anabela Munson DO Kat Germain is a pleasant 87-year-old female with history of IBS and constipation presenting from home after sustaining a ground-level fall. Patient lives alone. She was standing at her kitchen table when her phone rang. She went to answer the phone and ended up losing her balance and falling onto the kitchen floor. She landed on her right hip and struck her head as well off of the laminate floor. She did not lose consciousness. Patient was unable to get up immediately but was able to call family and emergency services. She experienced severe pain in her right hip. She came to the emergency room where radiographs demonstrated an intertrochanteric fracture of the right hip. She was admitted to the medical service and orthopedics was consulted to evaluate and treat. Allergies Allergy/AdvReac Type Severity Reaction Status Date / Time Penicillins Allergy Intermediate HIVES Verified 08/14/22 09:26 Sulfa (Sulfonamide Allergy Intermediate Verified 08/14/22 09:26 Antibiotics) Home Medications Medication Instructions Recorded Confirmed Type albuterol sulfate 2.5 mg/3 mL 2.5 mg continuous nebulization Q6 11/19/22 11/19/22 History (0.083 %) solution for nebulization PRN Shortness Of Breath aspirin 81 mg tablet,delayed 81 mg PO DAILY 11/19/22 11/19/22 History release ergocalciferol (vitamin D2) 1,250 1,250 mcg PO WK 11/19/22 11/19/22 History mcg (50,000 unit) capsule isosorbide mononitrate 120 mg 60 mg PO BID 11/19/22 11/19/22 History tablet,extended release 24 hr linaclotide 290 mcg capsule 290 mcg PO DAILY 11/19/22 11/19/22 History (Linzess) metoprolol succinate 25 mg 25 mg PO BID 11/19/22 11/19/22 History tablet,extended release 24 hr nitroglycerin 0.4 mg sublingual 0.4 mg sublingual UD PRN Chest Pain 11/19/22 11/19/22 History tablet omeprazole 40 mg capsule,delayed 40 mg PO DAILYBL 11/19/22 11/19/22 History release potassium chloride 20 mEq 20 meq PO DAILY PRN if taking 11/19/22 11/19/22 History tablet,extended release(part/cryst) torsemide sertraline 100 mg tablet 100 mg PO QPM 11/19/22 11/19/22 History temazepam 30 mg capsule 30 mg PO HS 11/19/22 11/19/22 History torsemide 20 mg tablet 20 mg PO DAILY PRN Fluid Retention 11/19/22 11/19/22 History Past Med/Surg History Medical History Fall Irritable bowel disease Surgical History History of right shoulder replacement Family History Other No significant family history Social History Smoking Status: Never smoker Hx Alcohol Use: No Hx Substance Use: No Preferred Language: Stateless Communication Ability: Effective Anvil Worker Required: No Beliefs That Will Affect Care: None Current Living Situation: Alone Current Living Situation Comment: lives in 1 story condo, no steps Other Information That Helps Us Care for You: No Feels Safe at Home: Yes Safety Concerns: Feels Safe At This Time Assistive Devices: Denture - Upper, Denture - Lower, Glasses and Walker Assistive Devices Comment: has a walker at home, was given to her by neighbor Review of Systems All systems reviewed & are unremarkable except as noted in HPI & below. Physical Exam On physical examination of the right hip, her leg is little bit shortened and externally rotated. She has pain with logroll. There are no abrasions, lesions, or lacerations of the skin.. Constitutional WD/WN, vitals as above Eyes PERRL, conjunctivae normal, anicteric sclerae ENMT external ear and nose normal, oropharynx normal Neck trachea midline, no thyromegaly Respiratory normal respiratory effort, lungs clear to auscultation Cardiovascular RRR, no murmur, no edema Gastrointestinal (Abdomen) normal bowel sounds, soft, nontender, no hepatosplenomegaly Skin no rashes, warm and dry Psychiatric A+Ox3, euthymic affect Results & Data Results & Data Laboratory Results . Diagnostic Findings X-rays of the right hip do show a displaced right intertrochanteric hip fracture.. PG Care Time/CCT Total # of Minutes Spent Total Time Spent with Patient: Total time spent is greater than 50% in coordination of care (as documented) at patient's floor/unit and/or counseling patient: Coding Level of Care Code 91898 IN/OBS CONSULT LVL 4,60M (57 - DECISION FOR SURGERY) Diagnoses Closed fracture of right hip S72.001A Encounter type: initial encounter (1) Closed fracture of right hip Encounter type: initial encounter Qualified Code(s): S72.001A - Fracture of unspecified part of neck of right femur, initial encounter for closed fracture
[2022-11-19] MEDS: POLYETHYLENE (MIRALAX) 17 GM PACK PO SCH (07:40)
[2022-11-19] MEDS: METOPROLOL SUCC 25MG EXT REL TAB PO SCH ×2 (07:41→23:02)
[2022-11-19] MEDS: ISOSORBIDE MONO EXTENDED REL 60 MG TABCR PO SCH ×2 (07:41→16:59)
[2022-11-19] MEDS: PANTOprazole 40 MG TAB PO SCH (07:41)
--- NOTE | 2022-11-19 08:16 | XRay Report ---
XR hip RT 2V w pelvis CLINICAL HISTORY: fall, pain TECHNIQUE: 2 views of the right hip and single frontal view of the pelvis were obtained. Comparison: Comparison is made to CT abdomen pelvis 01/25/2021 right hip radiograph 08/22/2013 FINDINGS: There is a angulated intratrochanteric fracture of the right femur. Mild degenerative changes are see n. Bones appear osteopenic. Soft tissue swelling is seen on the right. IMPRESSION: Angulated intratrochanteric fracture of the right femur with associated soft tissue swelling. ACT 112: Negative or not required by law. Electronically signed by: Jef Mccabe M.D. 11/19/2022 8:14 AM
--- NOTE | 2022-11-19 08:16 | XRay Report ---
XR chest 1V portable CLINICAL HISTORY: hip fx TECHNIQUE: Single frontal radiograph of the chest was obtained. Comparison: Comparison is made to chest radiograph 09/29/2014 FINDINGS: Right reverse shoulder arthroplasty. Calcified aortic knob is seen. The lungs are clear. No evidence of pleural effusion or pneumothorax. IMPRESSION: No acute abnormality in the chest. ACT 112: Negative or not required by law. Electronically signed by: Jef Mccabe M.D. 11/19/2022 8:15 AM
[2022-11-19] MEDS: LINACLOTIDE 145 MCG CAPSULE PO SCH (08:38)
--- NOTE | 2022-11-19 10:54 | Electrocardiogram Report ---
Test Reason : Blood Pressure : / mmHG Vent. Rate : 068 BPM Atrial Rate : 068 BPM P-R Int : 154 ms QRS Dur : 134 ms QT Int : 456 ms P-R-T Axes : 011 004 008 degrees QTc Int : 484 ms Poor data quality, interpretation may be adversely affected Normal sinus rhythm Right bundle branch block Abnormal ECG When compared with ECG of 29-SEP-2014 14:59, Right bundle branch block is now Present Confirmed by Fabian Oquendo ([id number]) on 11/19/2022 10:54:26 AM Referred By: REFERRED SELF Confirmed By:Rob Oquendo
[2022-11-19] MEDS ORDERED: fentaNYL citrate PF 100 MCG/2 ML VIAL ONE (13:31)
[2022-11-19] MEDS ORDERED: PROPOFOL IV EMULSION 10 MG/ML 20 ML VIAL IV ONE ×2 (13:31→15:15)
[2022-11-19] MEDS ORDERED: LIDOCAINE 2% 2 ML VIAL/AMP(20MG/ML) INFIL ONE (13:31)
[2022-11-19] MEDS ORDERED: BUPIVACAINE/EPINEPHRINE 0.5% MPF 1:200,000 30 ML VIAL ONE (13:48)
--- NOTE | 2022-11-19 13:48 | History & Physical Bridge Note ---
Date of Service November 19, 2022 History & Physical Bridge Note I have examined the patient, reviewed the History & Physical and in the interval since the performance of the History & Physical I have noted the following changes of clinical significance: no changes noted. Agree with Dr. Fish's consultation. I independently evaluated the patient, and recommended surgery. We reviewed the risks, benefits, and alternatives. She is agreeable to proceed. Informed consent was documented in the preoperative hold area. Continue plan for right hip intertrochanteric fracture open or closed reduction and internal fixation.
[2022-11-19] MEDS ORDERED: ceFAZolin 2,000 MG/15 ML IV PUSH IV ONE (13:55)
[2022-11-19] MEDS ORDERED: ceFAZolin 2000MG 2,000 MG/15 ML SYR IV ONE (14:01)
--- NOTE | 2022-11-19 14:02 | Anesthesiology Consultation ---
Date of Service November 19, 2022 Assessment & Plan Chart Review Chart Review: Acceptable Risk for Surgery Consults Requested none History Surgery Operation Date: 11/19/22 09:55 Proposed Procedures p Right IM Nail Hip - Wilder Hdz MD Height/Weight Height: 5 ft Weight: 55.1 kg Allergies Allergy/AdvReac Type Severity Reaction Status Date / Time Penicillins Allergy Intermediate HIVES Verified 08/14/22 09:26 Sulfa (Sulfonamide Allergy Intermediate Verified 08/14/22 09:26 Antibiotics) Medications Home Medications Medication Instructions Recorded Confirmed Last Taken albuterol sulfate 2.5 mg/3 mL 2.5 mg continuous nebulization Q6 11/19/22 11/19/22 Unknown (0.083 %) solution for nebulization PRN Shortness Of Breath aspirin 81 mg tablet,delayed 81 mg PO DAILY 11/19/22 11/19/22 11/18/22 release ergocalciferol (vitamin D2) 1,250 1,250 mcg PO WK 11/19/22 11/19/22 11/14/22 mcg (50,000 unit) capsule isosorbide mononitrate 120 mg 60 mg PO BID 11/19/22 11/19/22 11/18/22 tablet,extended release 24 hr linaclotide 290 mcg capsule 290 mcg PO DAILY 11/19/22 11/19/22 11/18/22 (Linzess) metoprolol succinate 25 mg 25 mg PO BID 11/19/22 11/19/22 11/18/22 tablet,extended release 24 hr nitroglycerin 0.4 mg sublingual 0.4 mg sublingual UD PRN Chest Pain 11/19/22 11/19/22 Unknown tablet omeprazole 40 mg capsule,delayed 40 mg PO DAILYBL 11/19/22 11/19/22 11/18/22 release potassium chloride 20 mEq 20 meq PO DAILY PRN if taking 11/19/22 11/19/22 Unknown tablet,extended release(part/cryst) torsemide sertraline 100 mg tablet 100 mg PO QPM 11/19/22 11/19/22 11/18/22 temazepam 30 mg capsule 30 mg PO HS 11/19/22 11/19/22 11/18/22 torsemide 20 mg tablet 20 mg PO DAILY PRN Fluid Retention 11/19/22 11/19/22 Unknown Active Medications Generic Name Dose Route Start Last Admin Trade Name Freq PRN Reason Stop Dose Admin Lactated Ringer's 1,000 mls @ 75 mls/hr 11/19/22 02:36 11/19/22 02:44 Lr IV 11/19/22 15:55 75 mls/hr .[id number] CONSUELO Administration Isosorbide Mononitrate 60 mg 11/19/22 08:00 11/19/22 07:41 Isosorbide [place] Extended Rel 60 Mg Tabcr PO 12/19/22 07:59 60 mg BIDM CONSUELO Administration Linaclotide 290 mcg 11/19/22 09:00 11/19/22 08:38 Linaclotide 145 Mcg Capsule PO 12/19/22 08:59 Not Given DAILY CONSUELO Metoprolol Succinate 25 mg 11/19/22 09:00 11/19/22 07:41 Metoprolol Succ 25mg Ext Rel Tab PO 12/19/22 08:59 25 mg BID CONSUELO Administration Morphine Sulfate 2 mg 11/19/22 02:36 11/19/22 06:35 Morphine Sulfate 2 Mg/Ml Carp IV 12/03/22 02:35 2 mg Q3H PRN Administration Pain (6,7,8,9,10) Pantoprazole Sodium 40 mg 11/19/22 09:00 11/19/22 07:41 Pantoprazole 40 Mg Tab PO 12/19/22 08:59 40 mg DAILY CONSUELO Administration Polyethylene Glycol 17 gm 11/19/22 09:00 11/19/22 07:40 Polyethylene (Miralax) 17 Gm Pack PO 12/19/22 08:59 Not Given DAILY CONSUELO NPO Date Last Intake of Fluids: 11/18/22 Time Last Intake of Fluids: 23:00 Date Last Intake of Solids: 11/18/22 Time Last Intake of Solids: 23:00 Past Medical History Medical History Fall Irritable bowel disease Past Family History Family History Other No significant family history Past Surgical History Surgical History History of right shoulder replacement Social History Smoking Status: Never smoker Hx Alcohol Use: No Hx Substance Use: No Physical Exam Vital Signs Last Vital Signs Temp 36.8 C 11/19/22 12:34 Pulse 75 11/19/22 12:34 Resp 18 11/19/22 12:34 BP 93/49 L 11/19/22 12:34 Pulse Ox 94 11/19/22 12:34 O2 Del Method Room Air 11/19/22 12:34 Testing Laboratory Results 11/18/22 22:48 11/18/22 22:48 PT 10.8 Seconds (9.0-12.0) 11/18/22 22:48 INR 1.0 (0.9-1.1) 11/18/22 22:48 APTT 26.0 Seconds (21.0-31.0) 11/18/22 22:48 Urine Color Yellow 11/18/22 22:46 Urine Appearance Clear (Clear) 11/18/22 22:46 Urine pH 8.0 (4.5-7.5) H 11/18/22 22:46 Ur Specific [place] 1.011 (1.000-1.030) 11/18/22 22:46 Urine Protein Negative (Negative) 11/18/22 22:46 Urine Glucose (UA) Negative (Negative) 11/18/22 22:46 Urine Ketones Negative (Negative) 11/18/22 22:46 Urine Nitrite Negative (Negative) 11/18/22 22:46 Ur Leukocyte Esterase Negative (Negative) 11/18/22 22:46 Urine WBC (Auto) 1-5 /hpf (0-5) 11/18/22 22:46 Urine RBC (Auto) >30 /hpf (0-4) H 11/18/22 22:46 U Hyaline Cast (Auto) 1-5 /lpf (0-5) 11/18/22 22:46 U Epithel Cells (Auto) 10-20 /lpf (0-5) H 11/18/22 22:46 Urine Bacteria (Auto) Negative (Negative) 11/18/22 22:46 Blood Type O Negative 11/19/22 03:53 Antibody Screen NEGATIVE 11/19/22 03:53
[2022-11-19] MEDS ORDERED: ATROPINE SULFATE 0.1 MG/ML 10ML SYR IV PRN (14:03)
[2022-11-19] MEDS ORDERED: fentaNYL citrate PF 100 MCG/2 ML VIAL IV PRN (14:03)
[2022-11-19] MEDS ORDERED: PROMETHAZINE HCL 12.5 MG in SODIUM CHLORIDE 0.9% 50 ML IV PRN (14:03)
[2022-11-19] MEDS ORDERED: HYDROmorphone INJ 1 MG/ML SYRINGE IV PRN (14:03)
[2022-11-19] MEDS ORDERED: KETAMINE 50 MG/5 ML SYRINGE ONE (14:09)
[2022-11-19] MEDS ORDERED: TRANEXAMIC ACID / 0.7% NACL 1,000 MG/100 ML BAG IV STA (14:59)
[2022-11-19] MEDS ORDERED: PHENYLEPHRINE HCL 10 MG/ML VIAL ONE (15:15)
[2022-11-19] MEDS ORDERED: ePHEDrine sulfate 50 MG/ML AMP ONE (15:15)
--- NOTE | 2022-11-19 15:40 | Fluoroscopy Report ---
FL hip RT 2-3V CLINICAL HISTORY: RIGHT IM NAILstatus post ORIF of the right femur COMPARISON STUDY: Pelvis and hip radiographs 11/18/2022 FLUOROSCOPY TIME: 78.2 seconds FLUOROSCOPY IMAGES: 4 EXPOSURE DOSE: 10.27 mGy Air Kerma FINDINGS: Satisfactory alignment of the intertrochanteric nail with medullary kelvin fixating the acute intertrochanteric fracture. Mild to moderate osteoarthritis of the right hip. Demineralized appearanc e of the bones. Expected postoperative soft tissue swelling and deep tissue air. IMPRESSION: Fluoroscopic assistance as above. ACT 112: Negative or not required by law. Electronically signed by: Fabricio Rodgers M.D. 11/19/2022 3:39 PM
--- NOTE | 2022-11-19 15:46 | Operative Report ---
PG Post Operative Report Pre & Post Diagnosis Operation Date: 11/19/22 09:55 Pre-Op Diagnosis: Closed intertrochanteric fracture of right hip Post-Op Diagnosis: Closed intertrochanteric fracture of right hip I identified the patient and participated in the time-out.: Yes Procedure Operation Date: 11/19/22 09:55 Actual Procedures p Right intertrochanteric hip fracture closed reduction Internal Fixation (Proximal Femoral Nailing System-Advanced) (Right) - Wilder Hdz MD Surgeon Wilder Hdz MD Motorcycle Racer Del Tolentino PA-C Estimated Blood Loss 100 Findings See Below Simple intertrochanteric pattern reduced easily with closed maneuvers. All Synthes implants: 11 mm/130 degree titanium cannulated trochanteric fixation nail of 360 mm length. 11.0 mm titanium helical blade of 90 mm length. Distal interlock screw measuring 46 mm. Specimens none Anesthesia Type MAC Spinal Regional Complications none Disposition Accompanied Patient To Recovery: No Disposition: Surgical ICU Indications 87-year-old female sustained fall at home and was admitted with intertrochanteric hip fracture. She was a community ambulator without assistive device and lived alone. She was counseled treatment options, and surgical stabilization was recommended. I reviewed the risks and benefits of a trochanteric fixation nail in detail. Risk discussed include, but are not limited to, infection, neurovascular injury, arthrofibrosis of the hip, need for repeat or revision surgeries, nonunion, malunion, symptomatic hardware, blood clots, pain syndromes, and complications related anesthesia. She asked appropriate questions, demonstrated a good understanding, and was able to give consent to proceed with surgery. Description of Procedure On the day of surgery should be was greeted in the preoperative holding area and the informed consent was reviewed and confirmed. The surgical site was then identified by the patient and signed by myself. The patient was taken to the operating placed by the OR table and anesthesia was induced. The patient is then positioned on the fracture table. All margarita prominences were well padded. The operative foot was placed in the fracture boot with abundant padding. The well leg was secured. We then positioned the lower extremities in a scissor fashion with a non-op leg flexed down to allow visualization with fluoroscopy which was confirmed before we prepped and draped. Surgical timeout was called and verified by all present. Antibiotics were infused, and equipment was available and functional. The procedure was initiated with a closed reduction maneuvers. Gentle in-line traction pulled the fracture out to length. The limb was then internally rotated to reduce the proximal femur. Flexion and adduction were used to adjust the reduction and allow access to the greater trochanter. We had adequate reduction prior to prepping and draping. The leg was then prepped and draped in usual sterile fashion. Surgical timeout was reconfirmed. We initiated the surgical internal fixation portion with finding the start point with the tip of the greater trochanter. Fluoroscopic guidance was used and a small poke hole was established. The start point was confirmed on fluoroscopy in AP and lateral planes and the pin was advanced using a mallet. An incision was made about the pin to allow access for the reamers. The pin was then advanced past the lesser trochanter, and its position was confirmed using AP and lateral fluoroscopy. Using the protective sleeve, the opening reamer was advanced under power with fluoroscopic guidance over the guidepin. It was advanced slowly and we did ream out some lateral bone of the trochanter. The reduction wire was then advanced down the distal femur to the level of the superior pole of the patella. Measurement was taken from the tip of the trochanter down to the end of the guidewire, and the 360 was selected. We then began sequential reaming. We started with 11.5 and used fluoroscopy to guide our reaming. We advanced the reaming to a 12.5. An 11 mm nail was loaded onto the jig and advanced manually down the canal, while ensuring maintenance of the reduction on fluoroscopy. We then tapped it down into place until we achieve the good position for our cephalo-medullary screw. The cannula was placed on the jig to allow positioning of the cephalo-medullary screw. The skin incision was made in the appropriate spot. The jig cannulas were then placed against the lateral cortex. The cephalo-medullary screw g uidepin was advanced towards the femoral head. The center-center position was confirmed on fluoroscopy in AP and lateral planes. The length of the screw was measured off the guide. The helical blade screw was then opened on the back table and prepared on the screwdriver. The lateral cortical opening drill, followed by the triple drill reamer for the helical blade was advanced under fluoroscopic guidance. The helical blade was advanced over the guidepin to appropriate position. The helical blade was locked in rotation and then the traction was taken off. Fluoroscopy confirmed maintenance of reduction and adequate position of the implant. The compression sleeve was then advanced against the lateral femur to improve the trochanteric-shaft reduction and compress the intertrochanteric region fracture. Final fluoroscopic views showed some more posterior placement of the helical blade, than expected, despite repositioning the guidepin. [place] it was an acceptable position. Attention was then directed distally to perform the interlock screws in using perfect napaimute technique. 1 interlock screw was placed with a 5 mm diameter. The length was measured using a depth gauge, with fluoroscopic guidance. This completed the fixation. This completed the fixation of the fracture. Fluoroscopy was used in both AP and lateral planes to evaluate the entirety of the fracture and implant. Reduction and implant positions were acceptable. The wounds were then thoroughly irrigated with bulb syringe and normal saline. The deep fascial layer was approximated with 0 Vicryl suture. The dermal layer was approximated using 2-0 Vicryl suture. The final skin closure was completed with valerie. Wounds were dressed with sterile Xeroform, sterile gauze, and Tegaderms over ABDs. The patient tolerated procedure well, awoke from anesthesia without complication, was extubated in the operating room, and transferred to the PACU in stable condition. Disposition: The patient be weightbearing as tolerated. I recommended routine DVT prophylaxis consisting oral aspirin, if tolerable. DVT prophylaxis should last 6 weeks. 24 hours of antibiotic prophylaxis should be continued. Physician educational assistant teacher attestation: Del Tolentino PA-C was present and scrubbed for the duration of the case. He was essential to prepping/draping, patient positioning, retraction, and assistance with wound closure. I attest to the content of the Intraoperative Record and any orders documented therein. Any exceptions are noted below.
[2022-11-19] MEDS: ePHEDrine sulfate 50 MG/ML AMP IV PRN ×2 (16:05→16:20)
--- NOTE | 2022-11-19 16:10 | XRay Report ---
XR femur RT 2V routine CLINICAL HISTORY: Post op TECHNIQUE: 2 radiographic views of the right femur were obtained. Comparison: Comparison is made to right hip radiograph 11/18/2022 FINDINGS: Patient is status medullary kelvin placement with expected postsurgical changes including soft tissue sw elling and subcutaneous emphysema. No periarticular lucency or hardware fracture is seen. IMPRESSION: Expected postoperative appearance. ACT 112: Negative or not required by law. Electronically signed by: Jef Mccabe M.D. 11/19/2022 4:09 PM
--- NOTE | 2022-11-19 16:51 | Anesthesiology Progress Note ---
Date of Service November 19, 2022 Anesthesia Post Procedure Vital Signs Vital Signs: Temp Pulse Pulse Pulse Resp BP BP 11/19/22 16:40 36.5 C 87 18 100/50 L 11/19/22 16:30 84 13 108/48 L 11/19/22 16:20 79 17 88/51 L 11/19/22 16:10 76 16 103/46 L 11/19/22 16:00 79 13 84/47 L 11/19/22 15:50 85 16 106/46 L 11/19/22 15:40 36.2 C L 80 11 L 75/38 L 11/19/22 12:34 36.8 C 75 18 93/49 L 11/19/22 07:39 36.9 C 78 18 111/58 L 11/19/22 06:07 36.6 C 68 18 106/60 11/19/22 06:07 11/19/22 02:00 36.5 C 64 18 103/56 L 11/19/22 02:36 11/19/22 02:02 72 20 101/49 L 11/19/22 01:58 73 20 99/57 L 11/19/22 00:43 67 20 107/53 L 11/18/22 22:52 36.6 C 72 20 135/66 11/18/22 22:52 36.6 C 72 18 135/66 Pulse Ox Pulse Ox O2 Del Method O2 Del Method O2 Flow Rate 11/19/22 16:40 97 Nasal Cannula 2 11/19/22 16:30 98 Nasal Cannula 2 11/19/22 16:20 97 Nasal Cannula 2 11/19/22 16:10 97 Nasal Cannula 2 11/19/22 16:00 93 Nasal Cannula 2 11/19/22 15:50 91 Room Air 11/19/22 15:40 94 Oxymask 4 11/19/22 12:34 94 Room Air 11/19/22 07:39 93 Room Air 11/19/22 06:07 95 Room Air 11/19/22 06:07 95 Room Air 11/19/22 02:00 94 Room Air 11/19/22 02:36 93 Room Air 11/19/22 02:02 95 Room Air 11/19/22 01:58 95 Room Air 11/19/22 00:43 96 Room Air 11/18/22 22:52 98 Room Air 11/18/22 22:52 98 Room Air Pain Intensity Right Hip: Pain Intensity: 7 Transfer of Care Handoff Completed per policy Notes Mental Status: alert / awake / arousable and participated in evaluation Patient Amnestic to Procedure: Yes Nausea / Vomiting: adequately controlled Pain: adequately controlled Airway Patency, RR, SpO2: stable & adequate BP & HR: stable & adequate Hydration State: stable & adequate Neuraxial Anesthesia: was administered and sensory block is resolving Anesthetic Complications: no major complications apparent and Pt Satisfied with anesthetic care
[2022-11-19] MEDS ORDERED: traMADol HCL 50 MG TABLET PO PRN ×2 (16:56)
--- NOTE | 2022-11-19 20:52 | Communication Note ---
Date of Service: November 19, 2022 Evaluated patient at bedside post operatively. Patient eating dinner. Denied pain at present. She denies chest pain, SOB, wheezing, or cough. She was comfo rted by her son visiting today. Nasal canula in place, lungs clear bilaterally to anterior auscultation, heart regular rate and rhythm, no murmur appreciated, normal bowel sounds. Monitor VS and check am labs. Discussed call rajan for nursing assistance.
[2022-11-19] MEDS: ceFAZolin 2000MG 2,000 MG/15 ML SYR IV SCH (22:10)
[2022-11-19] MEDS: SERTRALINE HCL 100 MG TABLET PO SCH (23:03)
[2022-11-19] MEDS: DOCUSATE SODIUM/SENNA 50/8.6MG TAB PO SCH (23:04)
[2022-11-19] MEDS: TEMAZEPAM 15 MG CAPSULE PO SCH (23:06)
[2022-11-20] MEDS: ceFAZolin 2000MG 2,000 MG/15 ML SYR IV SCH (06:16)
[2022-11-20] MEDS: ACETAMINOPHEN 325 MG TAB PO PRN ×2 (06:26→12:53)
--- NOTE | 2022-11-20 07:01 | Hospitalist Progress Note ---
Date of Service November 20, 2022 Assessment & Plan (1) Closed fracture of right hip: Plan: 87-year-old female presenting from home following a ground-level fall resulting in acute right hip pain found to have an acute hip fracture now POD1. #Closed fracture of right hip Patient POD1 closed reduction internal fixation with screw placement. Pain management - Tylenol, Morphine. [] Pain management as above [] Zofran PRN [] Miralax PRN [] ortho following #Osteoporosis Contributing to high risk of fracture #Acute blood loss anemia Likely blood loss anemia 2/2 to recent procedure. Hemoglobin 7.4 today. Repeat H&H at noon. Patient asymptomatic - no dizziness, lightheadedness or SOB. Consented for blood. Transfuse <7. [] transfuse <7 [] H&H at noon #Constipation Chronic. 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 No evidence of failure. [] isosorbide mononitrate 60 mg p.o. twice daily - holding in the setting of hypotension [] continue metoprolol 25 mg p.o. twice daily - holding in the setting of hypotension F/E/N Tolerating PO Prophylaxis ASA 325 mg CodeDNR/DNI per discussion with patient Dispositionadmit to medical floor Admission and Anticipated Discharge Date Admission Date: November 19, 2022 Supervising Physician Co-Signing Physician Notes 87-year-old female with past medical history pertinent for osteoporosis postop day 1 status post closed reduction and internal fixation with screw placement of right hip. Patient doing well denies pain. She is experienced acute blood loss anemia following surgery. Patient has been consented and will transfuse if needed. Current hemoglobin 7.4. I personally examined the patient and verified all maher points of history and exam, discussed case, and agree with decision making and plan documented by Dr. Mosley. Subjective Patient reports feeling well this morning. Having some pain at incision site well controlled with pain medication. No fevers/chills/SOB/calf pain/CP. Did have nausea/vomiting initially after the procedure. Has since resolved. Tolerating PO. Review of Systems Review of Systems: See HPI. Physical Exam Physical Exam: General: patient resting comfortably, NAD, non-toxic in appearance, AA&O x 4 Skin: warm, dry, intact, no rashes or lesions HEENT: NC/AT, PERRL, EOMI, anicteric sclera, conjunctiva without injection Neck: supple, trachea midline Heart: +S1/S2, regular, no m/r/g Lungs: equal air entry bilaterally, no rales/rhonchi/wheezes Abd: soft, NT/ND Ext: warm, 2+ pulses in UE/LE bilaterally, no clubbing/cyanosis or edema Neuro: nonfocal, patient AA&O x 4, speech intact Right Hip: c/d/i, no strikethrough, no erythema or purulent discharge. Results & Data Results & Data Vital Signs (Past 12 Hours) Vital Signs Temp Pulse Resp BP Pulse Ox Pulse Ox O2 Del Method 11/20/22 03:47 37.0 C 88 16 94/44 L 96 Nasal Cannula 11/19/22 22:56 36.8 C 90 18 96/52 L 97 Nasal Cannula 11/19/22 22:14 89 L 11/19/22 20:16 95 Room Air 11/19/22 19:31 36.5 C 88 18 105/53 L 99 Nasal Cannula O2 Del Method O2 Flow Rate 11/20/22 03:47 2 11/19/22 22:56 1 11/19/22 22:14 Room Air 11/19/22 20:16 11/19/22 19:31 2 Laboratory Results 11/20/22 07:37 11/20/22 07:37 Resident Activity Tracking Resident Involvement: Resident Care Provided Care Provided: Adult Hospital Medicine (1) Closed fracture of right hip Encounter type: initial encounter Qualified Code(s): S72.001A - Fracture of u nspecified part of neck of right femur, initial encounter for closed fracture
[2022-11-20] MEDS: ISOSORBIDE MONO EXTENDED REL 60 MG TABCR PO SCH ×2 (08:03→17:42)
[2022-11-20 08:40] LABS: Hematocrit (blood only) 22.7 % (37.0-47.0); Hemoglobin 7.4 g/dl (12.0-16.0); Mean Corpuscular Hemoglobin 29.5 pg (25.0-34.0); Mean Corpuscular Hgb Conc 32.6 g/dL (32.0-36.0); Mean Corpuscular Volume 90.4 fL (80.0-100.0); Mean Platelet Volume 9.8 fL (9.4-12.4); Platelet Count 163 K/uL (130-400); RDW Coefficient of Variation 13.2 % (11.5-14.5); RDW Standard Deviation 43.7 fL (36.4-46.3); Red Blood Count 2.51 M/uL (4.20-5.40); White Blood Count 5.98 K/ul (4.8-10.8)
[2022-11-20 09:09] LABS: BUN Creatinine Ratio 11.7 (10-20); Calcium 8.2 mg/dl (8.6-10.3); Creatinine Clr Calc Pharmacy 50.5 ml/min; Est GFR (African American) 94.3 ml/min; Est GFR (Non-African American) 81.4 ml/min; Potassium 3.7 mmol/L (3.5-5.1)
[2022-11-20] MEDS: ASPIRIN 325 MG ECTAB PO SCH (10:32)
[2022-11-20] MEDS: LINACLOTIDE 145 MCG CAPSULE PO SCH (10:36)
[2022-11-20] MEDS: PANTOprazole 40 MG TAB PO SCH (10:36)
[2022-11-20] MEDS: POLYETHYLENE (MIRALAX) 17 GM PACK PO SCH (10:36)
[2022-11-20 13:03] LABS: Hematocrit (blood only) 22.9 % (37.0-47.0); Hemoglobin 7.4 g/dl (12.0-16.0)
--- NOTE | 2022-11-20 15:51 | Orthopedic Progress Note ---
Date of Service November 20, 2022 Assessment & Plan (1) Closed fracture of right hip: (2) History of hip surgery: Plan 87-year-old female postop day 1 status post closed reduction and long trochanteric fixation nail for an intertrochanteric fracture. Making excellent progress. -Weightbearing and range of motion as tolerated -Discontinue antibiotic perioperative prophylaxis today -Continue VTE prophylaxis for 6 weeks -Pain control per primary team. -Preferred dressings remain until least postop day 3. At that point, it can be changed daily or with hygiene. [place] should be removed at 2-3 weeks Dispo: At this point, unlikely need further orthopedic intervention during the stay. Cleared for transition to next level of care. Should follow-up in the orthopedic clinic in 6 weeks for repeat x-rays, sooner if experiencing any setbacks or complications. Wound should be without drainage at 1 week. [place] removed in 2-3 weeks. This can be coordinated at our clinic or with the next level of care. Discharge instructions placed. Subjective Reports that she was out of bed and ambulating in the room with assistance. Tolerable pain. Feels weak though from blood loss, as expected. Review of Systems All systems reviewed & are unremarkable except as noted in HPI & below. Physical Exam RLE: Dressings are clean and dry. Able to form a straight leg raise. Distally neurovascular intact. Constitutional WD/WN, vitals as above no acute distress and not intoxicated appearing Respiratory normal respiratory effort; no labored breathing Cardiovascular Extremities: normal capillary refill Results & Data Results & Data Laboratory Results . Diagnostic Findings Radiographs: No complications PG Care Time/CCT Total # of Minutes Spent Total Time Spent with Patient: Total time spent is greater than 50% in coordination of care (as documented) at patient's floor/unit and/or counseling patient: Coding Level of Care Code 83091 Post Operative Follow-Up Diagnoses Closed fracture of right hip S72.001A Encounter type: initial encounter History of hip surgery Z98.890 (1) Closed fracture of right hip Encounter type: initial encounter Qualified Code(s): S72.001A - Fracture of unspecified part of neck of right femur, initial encounter for closed fracture
[2022-11-20] MEDS ORDERED: SODIUM CHLORIDE 0.9% 1000ML 500 ML IV ONE (17:22)
[2022-11-20 19:58] LABS: Hematocrit (blood only) 22.3 % (37.0-47.0); Hemoglobin 7.3 g/dl (12.0-16.0)
[2022-11-20] MEDS: DOCUSATE SODIUM/SENNA 50/8.6MG TAB PO SCH (20:03)
[2022-11-20] MEDS: SERTRALINE HCL 100 MG TABLET PO SCH (20:03)
[2022-11-20] MEDS: TEMAZEPAM 15 MG CAPSULE PO SCH (20:03)
--- NOTE | 2022-11-21 06:39 | Hospitalist Progress Note ---
Date of Service November 21, 2022 Assessment & Plan (1) Closed fracture of right hip: Plan: 87-year-old female with a PMHx of restrictive cardiomyopathy presenting from home following a ground-level fall resulting in acute right hip pain found to have an acute hip fracture and subsequent osteoporosis now POD2. #Closed fracture of right hip Patient POD2 closed reduction internal fixation with screw placement. Pain management - Tylenol, Morphine. [] Pain management as above [] Zofran PRN [] Miralax PRN [] ortho following #Anemia Likely blood loss anemia 2/2 to recent procedure. Hemoglobin 7.6 this AM. Patient asymptomatic - no dizziness, lightheadedness or SOB. Consented for blood. Transfuse <7. [] transfuse <7 [] H&H at noon #Constipation Chronic. 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 No evidence of failure. [] isosorbide mononitrate 60 mg p.o. twice daily - holding in the setting of hypotension [] metoprolol 25 mg p.o. twice daily - holding in the setting of hypotension F/E/N Tolerating PO, gave 500mL bolus NS Prophylaxis ASA 325 mg CodeDNR/DNI per discussion with patient Dispositionmed/surg Admission and Anticipated Discharge Date Admission Date: November 19, 2022 Subjective Patient reports feeling well this morning. Having some pain at incision site well controlled with pain medication. No fevers/chills/SOB/calf pain/CP. Did bowie ve nausea/vomiting initially after the procedure. Has since resolved. Tolerating PO. Review of Systems Review of Systems: See HPI. Physical Exam Physical Exam: General: patient resting comfortably, NAD, non-toxic in appearance, AA&O x 4 Skin: warm, dry, intact, no rashes or lesions HEENT: NC/AT, PERRL, EOMI, anicteric sclera, conjunctiva without injection Neck: supple, trachea midline Heart: +S1/S2, regular, no m/r/g Lungs: equal air entry bilaterally, no rales/rhonchi/wheezes Abd: soft, NT/ND Ext: warm, 2+ pulses in UE/LE bilaterally, no clubbing/cyanosis or edema Neuro: nonfocal, patient AA&O x 4, speech intact Right Hip: c/d/i, no strikethrough, no erythema or purulent discharge. Results & Data Results & Data Vital Signs (Past 12 Hours) Vital Signs Temp Pulse Resp BP Pulse Ox O2 Del Method O2 Flow Rate 11/20/22 20:00 Nasal Cannula 2 11/20/22 22:29 36.9 C 88 15 94/58 L 98 Nasal Cannula 2 Laboratory Results 11/21/22 07:39 11/21/22 07:39 (1) Closed fracture of right hip Encounter type: initial encounter Qualified Code(s): S72.001A - Fracture of unspecified part of neck of right femur, initial encounter for closed fracture
[2022-11-21 08:22] LABS: Hemoglobin 7.6 g/dl (12.0-16.0); Mean Corpuscular Hemoglobin 29.2 pg (25.0-34.0); Mean Corpuscular Volume 88.5 fL (80.0-100.0); Mean Platelet Volume 9.8 fL (9.4-12.4); Platelet Count 151 K/uL (130-400); RDW Standard Deviation 41.8 fL (36.4-46.3); White Blood Count 6.67 K/ul (4.8-10.8)
[2022-11-21 08:40] LABS: Calcium 8.1 mg/dl (8.6-10.3); Creatinine Clr Calc Pharmacy 60.6 ml/min; Est GFR (African American) 100.2 ml/min; Est GFR (Non-African American) 86.4 ml/min; Potassium 3.8 mmol/L (3.5-5.1)
[2022-11-21] MEDS: ISOSORBIDE MONO EXTENDED REL 60 MG TABCR PO SCH ×2 (09:41→16:00)
[2022-11-21] MEDS: ASPIRIN 325 MG ECTAB PO SCH (09:46)
[2022-11-21] MEDS: POLYETHYLENE (MIRALAX) 17 GM PACK PO SCH (09:47)
[2022-11-21] MEDS: PANTOprazole 40 MG TAB PO SCH (09:47)
--- NOTE | 2022-11-21 11:31 | Discharge Summary ---
Date of Service November 22, 2022 Admission HPI Per Admitting Provider Kat Germain is a pleasant 87-year-old female with history of IBS and constipation presenting from home after sustaining a ground-level fall. Patient lives alone. She was standing at her kitchen table when her phone rang. She went to answer the phone and ended up losing her balance and falling onto the kitchen floor. She landed on her right hip and struck her head as well off of the laminate floor. She did not lose consciousness. Patient was unable to get up immediately but was able to call family and emergency services. She experienced severe pain in her right hip. No additional complaints. Patient denies chest pain, palpitations, dizziness, nausea, vomiting, diarrhea. No fevers, chills, cough, shortness of breath. In the ER she is afebrile, hemodynamically stable, no acute distress. Complaining of pain in her right hip, otherwise doing well. ER course: Tylenol Admission Exam Per Admitting Provider General: patient resting comfortably, NAD, non-toxic in appearance, AA&O x 4 Skin: warm, dry, intact, no rashes or lesions HEENT: NC/AT, PERRL, EOMI, anicteric sclera, conjunctiva without injection, external ear normal to inspection and nontender, nares patent, moist mucus membranes, dentition intact, no oropharyngeal lesions, neck supple, trachea midline, no LAD, no thyromegaly, no JVD Heart: +S1/S2, regular, no m/r/g Lungs: equal air entry bilaterally, no rales/rhonchi/wheezes Abd: +BS, soft, NT/ND, no masses/organomegaly/ascites Ext: warm, 2+ pulses in UE/LE bilaterally, no clubbing/cyanosis or edema Neuro: nonfocal, patient AA&O x 4, speech intact, no facial droop, moving all extremities on command with equal strength 5/5 Principal Diagnosis Right Hip Fracture, Osteoporosis Discharge Exam General: patient resting comfortably, NAD, non-toxic in appearance, AA&O x 4 Skin: warm, dry, intact, no rashes or lesions HEENT: NC/AT, PERRL, EOMI, anicteric sclera, conjunctiva without injection Neck: supple, trachea midline Heart: +S1/S2, regular, no m/r/g Lungs: equal air entry bilaterally, no rales/rhonchi/wheezes Abd: soft, NT/ND Ext: warm, 2+ pulses in UE/LE bilaterally, no clubbing/cyanosis or edema Neuro: nonfocal, patient alert and oriented, speech intact Right Hip: c/d/i, no strikethrough, no erythema or purulent discharge. Discharge Data Allergies Allergy/AdvReac Type Severity Reaction Status Date / Time Penicillins Allergy Intermediate HIVES Verified 08/14/22 09:26 Sulfa (Sulfonamide Allergy Intermediate Verified 08/14/22 09:26 Antibiotics) Consultations 11/19/22 01:11 ED Decision to Admit Stat 11/19/22 02:36 Consult Orthopedic Surgery Routine Procedures Performed Operation Date: 11/19/22 09:55 Actual Procedures p Right Hip Fracture Open Reduction Internal Fixation (Proximal Femoral Nailing System-Advanced) (Right) - Wilder Hdz MD Ordered Studies Hip/Pelvis X-Ray 11/18/22 22:08 XR hip RT 2V w pelvis CLINICAL HISTORY: fall, pain TECHNIQUE: 2 views of the right hip and single frontal view of the pelvis were obtained. Comparison: Comparison is made to CT abdomen pelvis 01/25/2021 right hip radiograph 08/22/2013 FINDINGS: There is a angulated intratrochanteric fracture of the right femur. Mild degenerative changes are seen. Bones appear osteopenic. Soft tissue swelling is seen on the right. IMPRESSION: Angulated intratrochanteric fracture of the right femur with associated soft tissue swelling. Cervical Spine CT 11/18/22 22:10 Exam(s): CT C SPINE EXAM: CT Cervical Spine Without Intravenous Contrast CLINICAL HISTORY: Reason for exam: fall, HI. TECHNIQUE: Axial computed tomography images of the cervical spine without intravenous contrast. CTDI is 16.07 mGy and DLP is 322.65 mGy-cm. Automated exposure control was utilized for the study. A dose lowering technique was utilized adhering to the principles of ALARA. COMPARISON: No relevant prior studies available. FINDINGS: The vertebral body heights are maintained. There is no spondylolisthesis. The craniocervical junction is intact. The atlanto-dens interval is maintained. The dens is intact. Multilevel cervical spondylosis and degenerative disc disease. Straightening of the cervical lordosis. The unenhanced neck soft tissues are grossly unremarkable. The visualized lung apices are grossly clear. IMPRESSION: No acute fracture or subluxation of the cervical spine. Head CT 11/18/22 22:10 Exam(s): CT HEAD Without Contrast EXAM: CT Head Without Intravenous Contrast CLINICAL HISTORY: Reason for exam: fall, HI. TECHNIQUE: Axial computed tomography images of the head/brain without intravenous contrast. CTDI is 16.07 mGy and DLP is 322.65 mGy-cm. Automated exposure control was utilized for the study. A dose lowering technique was utilized adhering to the principles of ALARA. COMPARISON: No relevant prior studies available. FINDINGS: No acute intracranial hemorrhage. No midline shift or mass effect. The territorial smart-white matter differentiation is maintained throughout. Age-related cerebral volume loss. Periventricular and subcortical white matter hypoattenuation, consistent with chronic microangiopathy. The visualized orbits appear grossly unremarkable. The calvarium is intact. The visualized paranasal sinuses and mastoid air cells are grossly clear. IMPRESSION: No acute intracranial hemorrhage, midline shift, or mass effect. Chest X-Ray 11/18/22 22:19 XR chest 1V portable CLINICAL HISTORY: hip fx TECHNIQUE: Single frontal radiograph of the chest was obtained. Comparison: Comparison is made to chest radiograph 09/29/2014 FINDINGS: Right reverse shoulder arthroplasty. Calcified aortic knob is seen. The lungs are clear. No evidence of pleural effusion or pneumothorax. IMPRESSION: No acute abnormality in the chest. Hip X-Ray 11/19/22 00:00 FL hip RT 2-3V CLINICAL HISTORY: RIGHT IM NAILstatus post ORIF of the right femur COMPARISON STUDY: Pelvis and hip radiographs 11/18/2022 FLUOROSCOPY TIME: 78.2 seconds FLUOROSCOPY IMAGES: 4 EXPOSURE DOSE: 10.27 mGy Air Kerma FINDINGS: Satisfactory alignment of the intertrochanteric nail with medullary kelvin fixating the acute intertrochanteric fracture. Mild to moderate osteoarthritis of the right hip. Demineralized appearance of the bones. Expected postoperative soft tissue swelling and deep tissue air. IMPRESSION: Fluoroscopic assistance as above. Femur X-Ray 11/19/22 15:43 XR femur RT 2V routine CLINICAL HISTORY: Post op TECHNIQUE: 2 radiographic views of the right femur were obtained. Comparison: Comparison is made to right hip radiograph 11/18/2022 FINDINGS: Patient is status medullary kelvin placement with expected postsurgical changes including soft tissue swelling and subcutaneous emphysema. No periarticular lucency or hardware fracture is seen. IMPRESSION: Expected postoperative appearance. 11/23/22 05:02 11/23/22 05:02 Hospital Course (1) Closed fracture of right hip: 87-year-old female presenting from home following a ground-level fall resulting in acute right hip pain found to have an acute right hip fracture now POD4 from ORIF right hip. #Hypotension #Blood loss anemia Patient had soft BPs following her procedure with associated anemia - likely blood loss anemia. Transfusion threshold <7 or symptomatic anemia. Patient was slated for d/c to [facility] 11/21. At 12:02 11/21 I was contacted by nurse Choudhary regarding patient's blood pressure. Per report 55/38 with associated weakness, nausea, and generally feeling unwell when patient was on the commode having a BM. Patient was evaluated at bedside - ordered CBC, lactate, procal. Patient placed in trendelenburg position with improvement of BP. Patient was alert and oriented the entire time. Given 500 mL bolus and 1 unit of blood was ordered for possible hypovolemic shock. Upgraded to PCU. Likely a vasovagal response to BM. Patient s/p 2 units. Hemoglobin 10.3. BP stable. Appropriate response in hemoglobin. Stable for discharge. #Closed fracture of right hip Patient POD4 open reduction internal fixation with screw placement. Pain management - Tylenol, Morphine. Zofran PRN. Miralax PRN #Constipation Chronic. Miralax 17 g PO daily. 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 No evidence of failure. Holding isosorbide mononitrate 60 mg p.o. twice daily and metoprolol 25 mg p.o. twice daily in the setting of hypotension F/E/N Tolerating PO, encourage PO Prophylaxis ASA 325 mg for 6 weeks CodeDNR/DNI per discussion with patient [facility] ([facility]) Osteoporosis: (3) Restrictive cardiomyopathy: (4) Hypotension: (5) History of hip surgery: Total Time Total Time Spent Total Time Spent (In Minutes): see attending attestation Discharge Plan Discharge Items Patient Disposition: Transfer Inpatient Rehab Fac Reason For Visit: FAL, RIGHT HIP PAIN Discharge Diagnosis: hip fracture, osteoporosis Condition on Discharge: Good Activity: Per Instructions section Non-emergency contact: Primary Care Provider and Surgeon Call non-emergency contact if: your pain is concerning for you and your temperature is above 101.5 Follow-up/Referrals: Wilder Hdz MD [Surgeon] - (Valerie should be removed at 2-3 weeks. This can be done at our clinic or by nursing at the next level of care-please call. Repeat x-ray should be obtained at 6 weeks after surgery. Please contact if there is wound drainage beyond 1 week after surgery.) Pari Bales MD [Primary Care Provider] - Diet: Heart Healthy Addtl Attending Provider Instructions: Orthopaedic Instructions after Hip Fracture Surgery: Please keep your wound clean and dry. Do not remove any of the valerie. [place] were removed at your follow-up appointment with orthopedic surgery. Please continue daily dressing changes until your follow-up appointment. If there is no drainage onto the dressing for total of 24 hours, you may shower after 5 days from surgery. Allow soap and water to run over the incision, no scrubbing, and pat dry. Do not submerse (sitting in bathtub, hot tub, jacuzzi, pool, etc) the wound for at least 3 weeks. You may bear weight on your lower extremities as tolerated. Please use the walker or as instructed by physical therapy. For pain control please use Tylenol as needed. You may also have a stronger pain medication prescribed to you at discharge. You can also apply ice to the surgical site. To reduce the risk of dangerous blood clots please continue aspirin 325 mg by mouth daily or the medication for blood clots recommended by your medical team. Orthopedic clinic follow-up should be no later than 6 weeks after surgery for repeat x-ray. [place] can be removed at the orthopedic clinic at 2 to 3 weeks. If necessary, valerie can be removed by a nurse at home or at a nursing facility upon our order. Please contact the clinic. Hospital Course: 87-year-old female presenting from home following a ground-level fall resulting in acute right hip pain found to have an acute hip fracture now s/p 2 units PRBCs and POD4. #Hypotension #Blood loss anemia Patient has had soft BPs since her procedure with associated anemia - likely blood loss anemia. Patient previously asymptomatic. Transfusion threshold <7 or symptomatic anemia. Patient was slated for d/c to [facility] 11/21. At 12:02 11/21 I was contacted by nurse Choudhary regarding patient's blood pressure. Per report 55/38 with ass ociated weakness, nausea, and generally feeling unwell when patient was on the commode having a BM. Patient was evaluated at bedside - ordered CBC, lactate, procal. Patient placed in trendelenburg position with improvement of BP. Patient was alert and oriented the entire time. Given 500 mL bolus and 1 unit of blood was ordered for possible hypovolemic shock. Upgraded to PCU. Likely a vasovagal response to BM. Patient s/p 2 units. Hemoglobin 10.3. BP stable. Appropriate response in hemoglobin. Stable for discharge. #Closed fracture of right hip Patient POD4 closed reduction internal fixation with screw placement. Pain management - Tylenol, Morphine. Zofran PRN. Miralax PRN #Constipation Chronic. Miralax 17 g PO daily. 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 No evidence of failure. Holding isosorbide mononitrate 60 mg p.o. twice daily and metoprolol 25 mg p.o. twice daily in the setting of hypotension F/E/N Tolerating PO, encourage PO Prophylaxis ASA 325 mg for 6 weeks CodeDNR/DNI per discussion with [facility] P[facility] Studies at Discharge: No Stand-Alone Forms: My [facility] Skilled Items Patient informed of condition?: Yes DNR: Yes Discharge Level of Care: Acute rehab Communicable Disease: No Discharge Prognosis: Stable Lines: None Urinary Catheter: No Medications and DC Order Prescriptions: Continued sertraline 100 mg tablet 100 mg PO QPM Linzess 290 mcg capsule 290 mcg PO DAILY omeprazole 40 mg capsule,delayed release(DR/EC) 40 mg PO DAILYBL isosorbide mononitrate 120 mg tablet extended release 24 hr 60 mg PO BID potassium chloride 20 mEq tablet,ER particles/crystals 20 meq PO DAILY PRN (Reason: if taking torsemide) Rx Instructions: take with food temazepam 30 mg capsule 30 mg PO HS albuterol sulfate 2.5 mg /3 mL (0.083 %) solution for nebulization 2.5 mg continuous nebulization Q6 PRN (Reason: Shortness Of Breath) nitroglycerin 0.4 mg tablet, sublingual 0.4 mg sublingual UD PRN (Reason: Chest Pain) ergocalciferol (vitamin D2) 1,250 mcg (50,000 unit) capsule 1,250 mcg PO WK Rx Instructions: torsemide 20 mg tablet 20 mg PO DAILY PRN (Reason: Fluid Retention) aspirin 81 mg Tablet,Delayed Release (Dr/Ec) 81 mg PO DAILY metoprolol succinate 25 mg tablet extended release 24 hr 25 mg PO BID Discharge Orders: Discharge Order (Routine); Ordered 11/23/22 Ordered By: Fide Mosley Admission Data Admit Date/Time: 11/19/22 01:35 Attending Provider: Faraz Kiser Admit Provider: Anabela Munson Primary Care Provider: Pari Bales [facility] ; Anabela Munson ; Trevor Fish Other Interventions: Discharge Summary Assessment (RN) Last Done: 11/23/22 10:58 Supervising Physician Co-Signing Physician Notes I personally examined the patient and verified all maher points of history and exam, discussed case, and agree with decision making and plan documented by Dr. Mosley. Pt improved with 1 unit of blood. Admits to appropriate energy improvement and stable for discharge. Duration of time spent with discharge planning and discussion: 25 minutes. Resident Activity Tracking Resident Involvement: Resident Care Provided Care Provided: Adult Hospital Medicine
[2022-11-21] MEDS: ACETAMINOPHEN 325 MG TAB PO PRN (11:42)
[2022-11-21] MEDS: LINACLOTIDE 145 MCG CAPSULE PO SCH (11:44)
[2022-11-21] MEDS ORDERED: SODIUM CHLORIDE 0.9% 250 ML IV PRN ×2 (12:03→12:04)
--- NOTE | 2022-11-21 12:21 | Hospitalist Progress Note ---
Date of Service November 21, 2022 Assessment & Plan (1) Closed fracture of right hip: Plan: 87-year-old female presenting from home following a ground-level fall resulting in acute right hip pain found to have an acute hip fracture now POD2. #Hypotension #Blood loss anemia Patient has had soft BPs since her procedure with associated anemia - likely blood loss anemia. Patient previously asymptomatic. Transfusion threshold <7 or symptomatic anemia. Monitoring with CBC - last H&H 7.6. Patient was slated for d/c to [facility] this afternoon. At 12:02 I was contacted by nurse Choudhary regarding patient's blood pressure. Per report 55/38 with associated weakness, nausea, and generally feeling unwell when patient was on the commode having a BM. Patient was evaluated at bedside - ordered CBC, lactate, procal. Patient placed in trendelenburg position with improvement of BP. Patient was alert and oriented the entire time. Given 500 mL bolus and 1 unit of blood was ordered for possible hypovolemic shock. Upgraded to PCU. Likely a vasovagal response to BM. Still reasonable to give 1 unit as patient anemic and now symptomatic. Will continue to monitor #Closed fracture of right hip Patient POD2 closed reduction internal fixation with screw placement. Pain marielle gement - Tylenol, Morphine. Zofran PRN. Miralax PRN #Constipation Chronic. Miralax 17 g PO daily. 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 No evidence of failure. Holding isosorbide mononitrate 60 mg p.o. twice daily and metoprolol 25 mg p.o. twice daily in the setting of hypotension F/E/N Tolerating PO, encourage PO Prophylaxis ASA 325 mg for 6 weeks CodeDNR/DNI per discussion with patient [facility] (2) Osteoporosis: (3) Restrictive cardiomyopathy: (4) Hypotension: (5) History of hip surgery: Admission and Anticipated Discharge Date Admission Date: November 19, 2022 Supervising Physician Co-Signing Physician Notes 87-year-old female with past medical history pertinent for osteoporosis postop day 2 status post closed reduction and internal fixation with screw placement of right hip. Patient doing well denies pain. Unfortunate, when patient was about to be discharged she had a likely vasovagal episode (on toilet for BM) with a drop in her blood pressure and near syncopal. Patient did receive 1 unit of packed red blood cells due to low hemoglobin (last 7.3) and 500 cc bolus due to hypotension. Patient experienced acute blood loss anemia following surgery. Will monitor hemoglobin closely, patient has been accepted to [facility] for rehabilitation when she is ready. I personally examined the patient and verified all maher points of history and exam, discussed case, and agree with decision making and plan documented by Dr. Mosley. Subjective Patient well appearing this AM. Seen at bedside. No complaints. Ready to go to [facility]. Physical Exam Physical Exam: General: patient resting comfortably, NAD, non-toxic in appearance Skin: warm, dry, intact, no rashes or lesions HEENT: NC/AT, PERRL, EOMI, anicteric sclera, conjunctiva without injection Neck: supple, trachea midline Heart: +S1/S2, regular, no m/r/g Lungs: equal air entry bilaterally, no rales/rhonchi/wheezes Abd: soft, NT/ND Ext: warm, well perfused Neuro: nonfocal, alert and oriented, speech intact Right Hip: c/d/i, no strikethrough, no erythema or purulent discharge. Results & Data Results & Data Vital Signs (Past 12 Hours) Vital Signs Temp Pulse BP Pulse Ox O2 Del Method O2 Flow Rate 11/21/22 12:07 36.9 C 89 55/38 L 97 Room Air 11/21/22 09:57 93 Room Air 11/21/22 08:00 92 Room Air 11/21/22 08:00 37.1 C 92 H 98/64 L 97 Nasal Cannula 2 Resident Activity Tracking Resident Involvement: Resident Care Provided Care Provided: Adult Hospital Medicine (1) Closed fracture of right hip Encounter type: initial encounter Qualified Code(s): S72.001A - Fracture of unspecified part of neck of right femur, initial encounter for closed fracture
[2022-11-21 12:52] LABS: Hematocrit (blood only) 22.3 % (37.0-47.0); Hemoglobin 7.3 g/dl (12.0-16.0); Mean Corpuscular Hemoglobin 29.3 pg (25.0-34.0); Mean Corpuscular Hgb Conc 32.7 g/dL (32.0-36.0); Mean Corpuscular Volume 89.6 fL (80.0-100.0); Mean Platelet Volume 9.8 fL (9.4-12.4); Platelet Count 164 K/uL (130-400); RDW Coefficient of Variation 13.2 % (11.5-14.5); RDW Standard Deviation 43.2 fL (36.4-46.3); Red Blood Count 2.49 M/uL (4.20-5.40); White Blood Count 8.34 K/ul (4.8-10.8)
[2022-11-21 13:10] LABS: Calcium 7.9 mg/dl (8.6-10.3); Potassium 3.7 mmol/L (3.5-5.1)
[2022-11-21 13:16] LABS: BUN Creatinine Ratio 10.9 (10-20); Creatinine Clr Calc Pharmacy 55.1 ml/min; Est GFR (African American) 97.1 ml/min; Est GFR (Non-African American) 83.7 ml/min
[2022-11-21] MEDS: TEMAZEPAM 15 MG CAPSULE PO SCH (20:52)
[2022-11-21] MEDS: DOCUSATE SODIUM/SENNA 50/8.6MG TAB PO SCH (20:54)
[2022-11-21] MEDS: SERTRALINE HCL 100 MG TABLET PO SCH (20:54)
[2022-11-21 20:57] LABS: Hemoglobin 8.6 g/dl (12.0-16.0)
[2022-11-22 06:11] LABS: Basophils # (auto) 0.02 K/uL (0-0.2); Basophils % (auto) 0.3 %; Eosinophils # (auto) 0.12 K/uL (0-0.50); Eosinophils % (auto) 1.7 %; Hemoglobin 8.7 g/dl (12.0-16.0); Immature Granulocytes # (auto) 0.02 K/uL (0.01-0.20); Immature Granulocytes % (auto) 0.3 %; Lymphocytes # (auto) 1.42 K/uL (1.2-3.4); Lymphocytes % (auto) 20.7 %; Mean Corpuscular Hemoglobin 28.7 pg (25.0-34.0); Mean Corpuscular Hgb Conc 33.5 g/dL (32.0-36.0); Mean Corpuscular Volume 85.8 fL (80.0-100.0); Mean Platelet Volume 9.6 fL (9.4-12.4); Monocytes # (auto) 0.72 K/uL (0.11-0.59); Monocytes % (auto) 10.5 %; Neutrophils # (auto) 4.56 K/uL (1.40-6.50); Neutrophils % (auto) 66.5 %; Platelet Count 190 K/uL (130-400); RDW Coefficient of Variation 13.4 % (11.5-14.5); RDW Standard Deviation 42.4 fL (36.4-46.3); Red Blood Count 3.03 M/uL (4.20-5.40); White Blood Count 6.86 K/ul (4.8-10.8)
[2022-11-22 06:28] LABS: BUN Creatinine Ratio 14.6 (10-20); Calcium 8.1 mg/dl (8.6-10.3); Creatinine Clr Calc Pharmacy 63.1 ml/min; Est GFR (African American) 101.5 ml/min; Est GFR (Non-African American) 87.6 ml/min; Potassium 3.6 mmol/L (3.5-5.1)
[2022-11-22] MEDS: LINACLOTIDE 145 MCG CAPSULE PO SCH (07:55)
[2022-11-22] MEDS: ISOSORBIDE MONO EXTENDED REL 60 MG TABCR PO SCH ×2 (07:56→16:28)
[2022-11-22] MEDS: PANTOprazole 40 MG TAB PO SCH (08:00)
[2022-11-22] MEDS: POLYETHYLENE (MIRALAX) 17 GM PACK PO SCH (08:00)
[2022-11-22] MEDS: ASPIRIN 325 MG ECTAB PO SCH (08:00)
[2022-11-22] MEDS ORDERED: SODIUM CHLORIDE 0.9% 250 ML IV PRN (11:58)
--- NOTE | 2022-11-22 15:58 | Hospitalist Progress Note ---
Date of Service November 22, 2022 Assessment & Plan (1) Closed fracture of right hip: Plan: 87-year-old female presenting from home following a ground-level fall resulting in acute right hip pain found to have an acute hip fracture now POD3. #Hypotension #Blood loss anemia Patient has had soft BPs since her procedure with associated anemia - likely blood loss anemia. Patient previously asymptomatic. Transfusion threshold <7 or symptomatic anemia. Monitoring with CBC. Patient was slated for d/c to [facility] 11/21. At 12:02 11/21 I was contacted by nurse Choudhary regarding patient's blood pressure. Per report 55/38 with associated weakness, nausea, and generally feeling unwell when patient was on the commode having a BM. Patient was evaluated at bedside - ordered CBC, lactate, procal. Patient placed in trendelenburg position with improvement of BP. Patient was alert and oriented the entire time. Given 500 mL bolus and 1 unit of blood was ordered for possible hypovolemic shock. Upgraded to PCU. Likely a vasovagal response to BM. Still reasonable to give 1 unit as patient anemic and now symptomatic. Patient responded well to unit of PRBCs. BP stable. Appropriate response in hemoglobin. Patient continues to be symptomatic from anemia. Would give another unit and plan for discharge tomorrow. #Closed fracture of right hip Patient POD3 closed reduction internal fixation with screw placement. Pain management - Tylenol, Morphine. Zofran PRN. Miralax PRN #Constipation Chronic. Miralax 17 g PO daily. 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 No evidence of failure. Holding isosorbide mononitrate 60 mg p.o. twice daily and metoprolol 25 mg p.o. twice daily in the setting of hypotension F/E/N Tolerating PO, encourage PO Prophylaxis ASA 325 mg for 6 weeks CodeDNR/DNI per discussion with patient [facility] (2) Osteoporosis: (3) Restrictive cardiomyopathy: (4) Hypotension: (5) History of hip surgery: Admission and Anticipated Discharge Date Admission Date: November 19, 2022 Supervising Physician Co-Signing Physician Notes I personally examined the patient and verified all maher points of history and exam, discussed case, and agree with decision making and plan documented by Dr. Mosley. Pt states that she does not feel ready for discharge at this time. still having ongoing fatigue and some difficulty with ambulation. Hgb improved but not back to baseline. She is hemodynamically stable and not fluid overloaded. will provid e another unit of blood and recheck hemoglobin afterward. If she improves and subjectively feels better from a fatigue standpoint, she can be discharged to [facility]. Subjective Patient reports feeling dizzy and unsteady when ambulating. She also notes some increased SOB. No calf pain. Review of Systems Review of Systems: See HPI Physical Exam Physical Exam: General: patient resting comfortably, NAD, non-toxic in appearance Skin: warm, dry, intact, no rashes or lesions HEENT: NC/AT, PERRL, EOMI, anicteric sclera, conjunctiva without injection Neck: supple, trachea midline Heart: +S1/S2, regular, no m/r/g Lungs: equal air entry bilaterally, no rales/rhonchi/wheezes Abd: soft, NT/ND Ext: warm, well perfused Neuro: nonfocal, alert and oriented, speech intact Right Hip: c/d/i, no strikethrough, no erythema or purulent discharge. Results & Data Results & Data Vital Signs (Past 12 Hours) Vital Signs Temp Pulse Pulse Resp BP BP Pulse Ox 11/22/22 15:18 36.8 C 96 H 22 138/73 95 11/22/22 15:18 36.8 C 96 H 22 138/73 95 11/22/22 14:48 37.1 C 94 H 18 138/76 94 11/22/22 14:47 37.1 C 94 H 18 138/76 94 11/22/22 14:33 37.2 C 93 H 14 137/68 94 11/22/22 14:14 36.7 C 93 H 16 143/71 H 96 11/22/22 10:00 85 18 122/63 91 11/22/22 07:54 36.9 C 89 21 119/72 94 11/22/22 04:00 36.6 C 87 21 123/64 96 O2 Del Method O2 Flow Rate 11/22/22 15:18 11/22/22 15:18 11/22/22 14:48 11/22/22 14:47 11/22/22 14:33 11/22/22 14:14 11/22/22 10:00 Room Air 11/22/22 07:54 Nasal Cannula 2 11/22/22 04:00 Nasal Cannula 2 Laboratory Results 11/22/22 05:29 11/22/22 05:29 Resident Activity Tracking Resident Involvement: Resident Care Provided Care Provided: Adult Hospital Medicine (1) Closed fracture of right hip Encounter type: initial encounter Qualified Code(s): S72.001A - Fracture of unspecified part of neck of right femur, initial encounter for closed fracture
[2022-11-22] MEDS: ACETAMINOPHEN 325 MG TAB PO PRN (19:14)
[2022-11-22 19:52] LABS: Hematocrit (blood only) 31.3 % (37.0-47.0); Hemoglobin 10.5 g/dl (12.0-16.0)
[2022-11-22] MEDS: TEMAZEPAM 15 MG CAPSULE PO SCH (21:21)
[2022-11-22] MEDS: DOCUSATE SODIUM/SENNA 50/8.6MG TAB PO SCH (21:21)
[2022-11-22] MEDS: SERTRALINE HCL 100 MG TABLET PO SCH (21:22)
[2022-11-23] MEDS: ACETAMINOPHEN 325 MG TAB PO PRN (04:37)
[2022-11-23 06:20] LABS: Hematocrit (blood only) 30.9 % (37.0-47.0); Hemoglobin 10.3 g/dl (12.0-16.0); Mean Corpuscular Hemoglobin 28.8 pg (25.0-34.0); Mean Corpuscular Hgb Conc 33.3 g/dL (32.0-36.0); Mean Corpuscular Volume 86.3 fL (80.0-100.0); Mean Platelet Volume 9.4 fL (9.4-12.4); Platelet Count 225 K/uL (130-400); RDW Coefficient of Variation 13.6 % (11.5-14.5); RDW Standard Deviation 42.8 fL (36.4-46.3); Red Blood Count 3.58 M/uL (4.20-5.40); White Blood Count 6.28 K/ul (4.8-10.8)
[2022-11-23 06:33] LABS: BUN Creatinine Ratio 13.3 (10-20); Calcium 8.3 mg/dl (8.6-10.3); Creatinine Clr Calc Pharmacy 67.3 ml/min; Est GFR (African American) 103.7 ml/min; Est GFR (Non-African American) 89.5 ml/min; Magnesium 1.9 mg/dl (1.7-2.4); Potassium 3.4 mmol/L (3.5-5.1)
[2022-11-23] MEDS ORDERED: POTASSIUM CHLORIDE CRTAB 20 MEQ TABCR PO STA (08:00)
[2022-11-23] MEDS: ISOSORBIDE MONO EXTENDED REL 60 MG TABCR PO SCH (08:09)
[2022-11-23] MEDS: PANTOprazole 40 MG TAB PO SCH (08:10)
[2022-11-23] MEDS: LINACLOTIDE 145 MCG CAPSULE PO SCH (08:10)
[2022-11-23] MEDS: ASPIRIN 325 MG ECTAB PO SCH (08:10)
[2022-11-23] MEDS: POLYETHYLENE (MIRALAX) 17 GM PACK PO SCH ×2 (08:15→08:44)
--- NOTE | 2022-11-26 07:31 | Coding Query ---
CODING QUERY To promote full compliance with coding requirements relating to patient care, provider participation is requested in all cases of utility locator uncertainty. Please assist us with the question(s) below: Coding Question(s): Patient admitted with fracture d/t ground level fall. 11/21 progress note documented osteoporosis with an increased fracture risk. Please document, if known or suspected, the etiology of the fracture. Thank you. Riky Fontana [employer] [facility] Physician's Response(s): Principal Diagnosis: "that condition established after study, to be chiefly responsible for occasioning the admission of the patient to the hospital for care." Co-Existing Principal Diagnosis: "when two or more diagnoses equally meet the criteria for principal diagnosis as determined by the circumstances of admission, diagnostic work up, and/or therapy provided, and the Alphabetic Index, Tabular List, or another coding guideline does not provide sequencing direction, any one of the diagnoses may be sequenced first." "When the physician has documented what appears to be a current diagnosis in the body of the record, but has not included the diagnosis in the final diagnostic statement, the physician should be asked whether the diagnosis should be added." (Source [facility]oding [facility] 2 QTR90. p3-4) MARITZA
== END 2022-11-23 11:43 | DRG 481 ==
LOC: ED 21:55 → SUATTDRO 11-19 01:35 → 3N 11-19 01:35 → 1E 11-21 13:44

== ENCOUNTER 2023-03-10 10:45 | Inpatient (IN) ==
--- NOTE | 2023-03-10 12:10 | Emergency Department Note ---
History of Present Illness General Chief complaint: Fall Time Seen by Provider: 03/10/23 11:53 Source: patient, family (Son who is at the bedside), RN notes reviewed and old records reviewed (I have reviewed the notes from EMS call) Mode of arrival: EMS Limitations: no limitations History of Present Illness Maximum Pain Intensity: 4 This patient is a 87-year-old female who comes in by ambulance after suffering a mechanical fall. She was going to the [facility] and she said she caught her shoe and fell against the wall she hit the left side of her head and then fell on the ground landing on her right side. She complains of right shoulder and elbow pain she also skinned her right knee she is concerned because she broke her femur and had surgery on the hip and femur this past October. She did have a headache but now its resolved she is on no blood thinners. Denies any change in vision or any facial trauma or malocclusion or jaw pain. No neck pain denies chest pain or trauma denies shortness of breath or pleurisy. No abdominal pain or trauma. Denies back pain. No numbness or weakness it hurts when she moves her right elbow. She is certain that she had no symptoms prior to falling and suffered a mechanical fall. She saw her doctor on Friday and had blood work which was told she looks good and was feeling well prior to falling. Home Medications Medication Instructions Recorded Confirmed Type albuterol sulfate 2.5 mg/3 mL 2.5 mg continuous nebulization Q6 11/19/22 03/10/23 History (0.083 %) solution for nebulization PRN Shortness Of Breath aspirin 81 mg tablet,delayed 81 mg PO DAILY 11/19/22 03/10/23 History release ergocalciferol (vitamin D2) 1,250 1,250 mcg PO WK 11/19/22 03/10/23 History mcg (50,000 unit) capsule metoprolol succinate 25 mg 12.5 mg PO DAILY 11/19/22 03/10/23 History tablet,extended release 24 hr nitroglycerin 0.4 mg sublingual 0.4 mg sublingual UD PRN Chest Pain 11/19/22 03/10/23 History tablet omeprazole 40 mg capsule,delayed 40 mg PO DAILYBL 11/19/22 03/10/23 History release potassium chloride 20 mEq 20 meq PO DAILY PRN if taking 11/19/22 03/10/23 History tablet,extended release(part/cryst) torsemide sertraline 100 mg tablet 100 mg PO QPM 11/19/22 03/10/23 History temazepam 30 mg capsule 30 mg PO HS 11/19/22 03/10/23 History torsemide 20 mg tablet 20 mg PO DAILY PRN Fluid Retention 11/19/22 03/10/23 History linaclotide 290 mcg capsule 290 mcg PO DAILY 03/10/23 03/10/23 History (Linzess) Allergies Allergy/AdvReac Type Severity Reaction Status Date / Time Penicillins Allergy Intermediate HIVES Verified 08/14/22 09:26 Sulfa (Sulfonamide Allergy Intermediate Unknown Verified 03/10/23 16:02 Antibiotics) Past Med/Surg History Medical History Fall Irritable bowel disease Surgical History History of hip surgery 11/19/22: ([facility]) Pancho long TFN or IT fx History of right shoulder replacement Family History Other No significant family history Social History Smoking Status: Never smoker Hx Alcohol Use: No Hx Substance Use: No Preferred Language: [place] Communication Ability: Effective [employer] Required: No Beliefs That Will Affect Care: None Current Living Situation: Alone Current Living Situation Comment: lives in 1 story condo, no steps Feels Safe at Home: Yes Assistive Devices: Walker Review of Systems A total of 10 systems reviewed and were otherwise negative Physical Exam Vital Signs Vital Signs - 24 hr 03/10/23 10:52 03/10/23 10:58 03/10/23 11:54 Temperature 36.5 C Temperature Source Oral Pulse Rate 76 72 Pulse Rate [Apical] 66 Pulse Rate from SpO2 Sensor Respiratory Rate 16 20 Respiratory Effort / Characteristics Non-Labored Respiratory Depth Normal Normal Blood Pressure 136/61 Blood Pressure [Right Arm] 116/63 Blood Pressure Mean 86 Blood Pressure Mean [Right Arm] 80 Pulse Oximetry 94 98 Oxygen Delivery Method Room Air Room Air Sepsis Recent Fever Within 48 Hours No Sepsis New/Unexplained Change in Mental Status No Sepsis Action Taken by Nursing No Action Required 03/10/23 13:29 03/10/23 10:55 03/10/23 11:00 Temperature Temperature Source Pulse Rate 72 Pulse Rate [Apical] 89 Pulse Rate from SpO2 Sensor 71 Respiratory Rate 20 19 Respiratory Effort / Characteristics Non-Labored Respiratory Depth Normal Blood Pressure 112/54 L Blood Pressure [Right Arm] 111/53 L Blood Pressure Mean 88 Blood Pressure Mean [Right Arm] 72 Pulse Oximetry 98 96 Oxygen Delivery Method Room Air Sepsis Recent Fever Within 48 Hours Sepsis New/Unexplained Change in Mental Status Sepsis Action Taken by Nursing 03/10/23 11:00 03/10/23 11:30 03/10/23 11:30 Temperature Temperature Source Pulse Rate 72 71 Pulse Rate [Apical] Pulse Rate from SpO2 Sensor 71 71 Respiratory Rate 13 15 Respiratory Effort / Characteristics Respiratory Depth Blood Pressure 116/63 Blood Pressure [Right Arm] Blood Pressure Mean 93 Blood Pressure Mean [Right Arm] Pulse Oximetry 99 98 Oxygen Delivery Method Sepsis Recent Fever Within 48 Hours Sepsis New/Unexplained Change in Mental Status Sepsis Action Taken by Nursing 03/10/23 12:00 03/10/23 12:00 03/10/23 12:30 Temperature Temperature Source Pulse Rate 70 Pulse Rate [Apical] Pulse Rate from SpO2 Sensor 71 Respiratory Rate 15 Respiratory Effort / Characteristics Respiratory Depth Blood Pressure 99/60 L 116/58 L Blood Pressure [Right Arm] Blood Pressure Mean 73 76 Blood Pressure Mean [Right Arm] Pulse Oximetry 99 Oxygen Delivery Method Sepsis Recent Fever Within 48 Hours Sepsis New/Unexplained Change in Mental Status Sepsis Action Taken by Nursing 03/10/23 12:30 03/10/23 13:00 03/10/23 13:00 Temperature Temperature Source Pulse Rate 67 69 Pulse Rate [Apical] Pulse Rate from SpO2 Sensor 67 70 Respiratory Rate 17 14 Respiratory Effort / Characteristics Respiratory Depth Blood Pressure 111/53 L Blood Pressure [Right Arm] Blood Pressure Mean 65 Blood Pressure Mean [Right Arm] Pulse Oximetry 98 97 Oxygen Delivery Method Sepsis Recent Fever Within 48 Hours Sepsis New/Unexplained Change in Mental Status Sepsis Action Taken by Nursing 03/10/23 13:31 03/10/23 14:00 03/10/23 14:30 Temperature Temperature Source Pulse Rate 65 65 69 Pulse Rate [Apical] Pulse Rate from SpO2 Sensor 65 69 Respiratory Rate 16 17 Respiratory Effort / Characteristics Respiratory Depth Blood Pressure Blood Pressure [Right Arm] Blood Pressure Mean Blood Pressure Mean [Right Arm] Pulse Oximetry 97 99 Oxygen Delivery Method Sepsis Recent Fever Within 48 Hours Sepsis New/Unexplained Change in Mental Status Sepsis Action Taken by Nursing 03/10/23 15:00 Temperature Temperature Source Pulse Rate 70 Pulse Rate [Apical] Pulse Rate from SpO2 Sensor 68 Respiratory Rate 13 Respiratory Effort / Characteristics Respiratory Depth Blood Pressure Blood Pressure [Right Arm] Blood Pressure Mean Blood Pressure Mean [Right Arm] Pulse Oximetry 99 Oxygen Delivery Method Room Air Sepsis Recent Fever Within 48 Hours Sepsis New/Unexplained Change in Mental Status Sepsis Action Taken by Nursing General: Well developed well nourished older female who appears alert and orient x3 and in no acute distress, breathing comfortably on room air. Normal speech. She is not boarded or collared HEENT: Normal cephalic atraumatic with exception of a small not significantly tender bruise in the left lateral orthodox. Pupils are equal round and reactive to light. Extraocular movements are intact. Oropharynx is pink with moist mucous membranes. No swelling of the mouth lips or tongue. She has an upper plate. No dental trauma in the lower jaw. No instability of her midface Neck: Supple with a midline trachea. No meningeal signs or stiffness, no JVD or bruits. No Stridor. Chest: Clear to auscultation bilaterally. No wheezes or rhonchi. No increased work of breathing. Heart: Regular rate and rhythm without murmurs or gallops. Abdomen: Soft nontender, nondistended without rebound guarding or rigidity. Extremities: No cyanosis clubbing or edema. No calf tenderness or assymetry. She has tenderness when I try to move her arm in the elbow. Shoulder is freely mobile and does not appear to be dislocated. She does have a bruise on her right knee but has full range of motion the knee and hip. Her knee itself is moderately swollen and she has difficulty moving secondary to pain. There is an abrasion over the right elbow Spine/Back. Non tender to palpation. No CVA tenderness Skin: Good turgor without rashes. Neurologic exam: Cranial nerves two through 12 are intact. Motor and sensation are intact and symmetrical throughout. Medical Decision Making Differential Diagnosis Fall, trauma, head injury, cervical spine injury, orthopedic injuries, syncope Medical Records Attestation: I reviewed the patient's medical records. Home Medications Current Medication List: was personally reviewed by me Laboratory Data 03/10/23 11:35 03/10/23 11:35 Lab Results 03/10/23 03/10/23 Range/Units 11:35 16:03 Sodium 136 (136-145) mmol/L Potassium 3.6 (3.5-5.1) mmol/L Chloride 99 (98-107) mmol/L Carbon Dioxide 29 (21-32) mmol/L Anion Gap 8 (3-11) BUN 22 (6-23) mg/dl Creatinine 0.66 (0.6-1.2) mg/dl Est Cr Clr Drug Dosing 48.7 ml/min Est GFR ( Amer) 91.4 ml/min Est GFR (Non-Af Amer) 78.9 ml/min BUN/Creatinine Ratio 33.3 H (10-20) Glucose 81 (70-99(Fasting)) mg/dl Calcium 9.6 (8.6-10.3) mg/dl Total Bilirubin 0.4 (0.2-1.0) mg/dl AST 24 (13-39) U/L ALT 11 (7-52) U/L Alkaline Phosphatase 69 (34-104) U/L Total Protein 7.1 (6.0-8.3) gm/dl Albumin 4.1 (3.4-5.0) gm/dl Globulin 3.0 (2.5-4.0) gm/dl Albumin/Globulin Ratio 1.4 (0.9-2) SARS-CoV-2, RNA, NAAT NEGATIVE (NEGATIVE) Imaging Data Attestation: I personally reviewed and interpreted this imaging study as follows: My Impression: CT of the headno hemorrhage or mass effect Elbow x-rayno fracture or dislocation but there is an effusion Femur x-ray/knee x-rayno definite fracture but there is a hemarthrosis Radiologist's Impression: Cervical Spine CT 03/10/23 12:04 CT SCAN OF THE CERVICAL SPINE CLINICAL HISTORY: Trauma. Fall. COMPARISON STUDY: CT of the cervical spine dated 11/18/2022. TECHNIQUE: CT scan of the cervical spine is performed from the skull base to the upper thoracic spine. Images are reviewed in the axial, sagittal, and coronal planes. IV contrast was not administered for this examination. A dose lowering technique was utilized adhering to the principles of ALARA. CT DOSE: 921.85 mGy.cm FINDINGS: Skeletal structures: The skeletal structures are osteopenic. There is no evidence of fracture or subluxation involving the cervical spine. Vertebral body height and alignment are maintained. There is straightening of the cervical lordosis. Anterior osteophytes are seen throughout. The odontoid process and lateral masses are intact. The atlantoaxial articulation is preserved noting productive degenerative change. The spinous processes appear intact. There is mild multilevel cervical spondylosis. Facet arthropathy seen at several levels. Intervertebral discs: There is minimal disc space narrowing. Central canal: Grossly patent. Soft tissues: The prevertebral and paraspinous soft tissues are within normal limits. There is mild atherosclerotic calcification of the carotid bulbs. Calvarium: The visualized calvarium at the skull base appears intact. Brain parenchyma: Partially visualized brain parenchyma at the skull base is within normal limits. Sinuses and mastoids: The visualized paranasal sinuses are clear. The mastoid air cells are well pneumatized. Lung apices: Clear as visualized. IMPRESSION: 1. There is no evidence of fracture or subluxation involving the cervical spine. 2. Osteopenia and spondylotic change as above. ACT 112: Negative or not required by law. Electronically signed by: Redd Ibarra M.D. 03/10/2023 12:29 PM Elbow X-Ray 03/10/23 12:04 XR elbow RT min 3V routine CLINICAL HISTORY: fall. Right elbow pain. COMPARISON STUDY: None. FINDINGS: Displacement of the anterior and posterior humeral fat pads consistent with an elbow effusion. Therefore, this suggests an underlying right elbow fracture. However, no fractures identified. No dislocation. Mild posterior soft tissue swelling. Partially visualized humeral prosthesis. The bones are osteopenic. IMPRESSION: No definite fractures identified within the right elbow. However, there is a right elbow effusion which suggests the possibility of underlying occult fracture. Follow-up radiograph in 2 weeks is recommended for confirmation. ACT 112: Positive. There are findings on this exam that require communication between the performing entity and the patient following Patient Test Result Information Act ([place] Act 112) guidelines. Electronically signed by: Urbano Merchant M.D. 03/10/2023 2:21 PM Femur X-Ray 03/10/23 12:04 RIGHT FEMUR 3 VIEWS CLINICAL HISTORY: Fall. Right leg pain. FINDINGS: AP, frog-leg, and crosstable lateral views of the right femur are obt ained. No prior studies are available for comparison at the time of dictation. The skeletal structures are osteopenic. There is posttraumatic deformity of the right proximal femur with intertrochanteric and intramedullary nails in place. There is no radiographic evidence of acute right femoral fracture. There is cortical irregularity along the lateral cortex of the acetabular roof. Mild arthritic changes seen in the hip and knee joints. There is a large knee joint effusion with lipohemarthrosis. IMPRESSION: 1. There is no radiographic evidence of acute right femoral fracture. 2. Large knee joint effusion with lipohemarthrosis. This is highly suspicious for occult fracture at the knee joint. CT correlation is recommended. 3. There is indeterminate cortical irregularity along the right acetabular roof. This may be physiologic. If there is clinical concern for acetabular fracture a pelvic CT should be obtained. 4. Posttraumatic and post surgical change of the right femur as above. Electronically signed by: Redd Ibarra M.D. 03/10/2023 2:[address] 03/10/23 12:04 CT head/brain wo con CLINICAL HISTORY: fall Technique: Contiguous axial CT images of the head were acquired from the base of the skull to the vertex without intravenous contrast administration. Images were viewed in brain, subdural and bone windows. Automated dose lowering techniques and/or adjustment according to patient size were utilized for this exam. Comparison: Comparison is made to CT head 11/18/2022 Findings: Areas of decreased attenuation are present in the periventricular and subcortical white matter bilaterally consistent with small vessel ischemic disease. Generalized cerebral atrophy with commensurate enlargement of the ventricles, sulci, and cisterns is also present. There is no acute intracranial hemorrhage or evidence of acute territorial infarction. No shift of the midline structures, mass effect, or extra-axial abnormalities are shown. Atherosclerotic calcifications are present in the intracranial segments of the internal carotid arteries. Imaged portions of the paranasal sinuses and mastoid air cells are clear. The orbits appear normal. There are no acute fractures of the calvaria or scalp swelling. Impression: No acute intracranial hemorrhage, no evidence of acute territorial infarction or other acute intracranial disease process. ACT 112: Negative or not required by law. Electronically signed by: Jef Mccabe M.D. 03/10/2023 12:27 PM Knee X-Ray 03/10/23 12:04 XR knee RT 1 or 2V routine CLINICAL HISTORY: fall TECHNIQUE: 2 views of the right knee were obtained. Comparison: Comparison is made to right femur radiograph 11/20/2019 FINDINGS: Medullary nail is seen. Degenerative changes are seen. A moderate suprapatellar effusion is seen. Soft tissue swelling is seen about the knee. IMPRESSION: Degenerative changes and moderate suprapatellar effusion without evidence of underlying fracture. ACT 112: Negative or not required by law. Electronically signed by: Jef Mccabe M.D. 03/10/2023 1:55 PM Shoulder X-Ray 03/10/23 12:04 RIGHT SHOULDER 3 VIEWS CLINICAL HISTORY: Fall. Right shoulder injury. FINDINGS: 3 views of the right shoulder are obtained. Correlation is made with chest x-ray dated 11/18/2022. The skeletal structures are osteopenic. No acute fracture is seen. A right shoulder arthroplasty is in near anatomic alignment. No periprosthetic lucency is seen. Mild cortical irregularity along the medial cortex of the proximal humerus is unchanged from a prior chest x-ray. Productive degenerative change is noted at the acromioclavicular joint. There are chronic/healed right-sided rib fractures. The overlying soft tissues are within normal limits. The visualized right lung parenchyma appears clear. IMPRESSION: 1. There is no radiographic evidence of acute fracture. 2. A right shoulder arthroplasty is in near anatomic alignment. Electronically signed by: Redd Ibarra M.D. 03/10/2023 2:[address] 03/10/23 14:27 CT hip RT wo con CLINICAL HISTORY: eval for fracture TECHNIQUE: Multidetector row helical CT of the right hip was performed without intravenous contrast. Coronal and sagittal reformations were obtained. Automated dose lowering techniques and/or adjustment according to patient size were utilized for this examination. Comparison: Comparison is made to right femur radiograph 03/10/2023 FINDINGS: The osseous structures are without fracture or dislocation. There is an old healed intratrochanteric fracture with bony bridging noted. Degenerative changes are seen in the joints. No joint effusion is seen. The soft tissues are unremarkable. IMPRESSION: Subacute to chronic or trochanteric fracture with expected healing changes. No superimposed acute fracture is seen. ACT 112: Negative or not required by law. Electronically signed by: Jef Mccabe M.D. 03/10/2023 3:[address] 03/10/23 14:27 CT SCAN OF THE RIGHT KNEE WITHOUT IV CONTRAST CLINICAL HISTORY: Fall. Right knee injury. Abnormal x-ray. COMPARISON STUDY: Radiographs of the right knee dated 03/10/2023. TECHNIQUE: CT scan of the right knee is performed from the distal femur to the proximal tibia and fibula. Images are reviewed in the axial, sagittal, and coronal planes. IV contrast was not administered for this examination. A dose lowering technique was utilized adhering to the principles of ALARA. CT DOSE: 694.68 mGy.cm FINDINGS: The skeletal structures are osteopenic. There is a nondisplaced vertically oriented fracture through the lateral patellar facet with overlying soft tissue edema. No additional acute fracture is identified. There is a large joint effusion with lipohemarthrosis. An intramedullary nail is noted in the distal femur. There is mild tricompartmental degenerative joint space narrowing. There is generalized atrophy of the regional musculature. IMPRESSION: Nondisplaced patellar fracture as above with lipohemarthrosis. ACT 112: Negative or not required by law. Electronically signed by: Redd Ibarra M.D. 03/10/2023 3:28 PM MDM Narrative This patient comes in after suffering mechanical fall. She did hit her head and has a bruise given her age and mechanism I did order CAT scan of the head and neck given this fall. I also ordered x-rays of the right shoulder right knee/femur as well as right elbow to rule out any orthopedic injuries. Although I think her leg is okay she did have orthopedic surgery as an hour make sure she did not break it or disrupt the hardware as well. At this point she has nothing to suggest this was anything but a mechanical fall and I do not feel need EKG and routine labs. She still me she has had these checked. CT of the head was unremarkable as was the neck. Orthopedic x-rays do not show any definite fractures however there is a hemarthrosis in the right knee and in light of this I did do a CAT scan of the knee and also the hip because there is a questionable acetabular fracture. The hip CT looks okay without definite fracture acutely. There is a healing previous trochanteric fracture. The knee CT shows a patellar fracture nondisplaced. The elbow x-ray shows a effusion and there is no definite fracture but I suspect she could have an occult fracture such as a radial head fracture. Sling was applied a knee immobilizer was applied. The patient does not feel she can be at home at this point and I did discuss case with Dr. Hdz who reviewed her films. I did consult the hospitalist to admit her for pain management further treatment and evaluation and possible placement. I did add blood work given that she was going to be admitted. I did consult Dr. Souza and the [facility] team to see the patient in the ER for f urther treatment and evaluation. Continuous cardiac monitoring: Orders placed in EMR for continuous cardiac monitoring: Upon my evaluation patient is to be normal sinus rhythm rate of 70 Impression & Plan Patellar fracture, Fall, Head injury, Effusion of right elbow Discharge Plan Visit Data Chief Complaint: Fall ED Provider: Trevor Norwood Discharge Problem: Patellar fracture, Fall, Head injury, Effusion of right elbow Forms Stand Alone Forms: My [facility] Prescriptions Prescriptions: No Action sertraline 100 mg tablet 100 mg PO QPM omeprazole 40 mg capsule,delayed release(DR/EC) 40 mg PO DAILYBL potassium chloride 20 mEq tablet,ER particles/crystals 20 meq PO DAILY PRN (Reason: if taking torsemide) Rx Instructions: take with food temazepam 30 mg capsule 30 mg PO HS albuterol sulfate 2.5 mg /3 mL (0.083 %) solution for nebulization 2.5 mg continuous nebulization Q6 PRN (Reason: Shortness Of Breath) nitroglycerin 0.4 mg tablet, sublingual 0.4 mg sublingual UD PRN (Reason: Chest Pain) ergocalciferol (vitamin D2) 1,250 mcg (50,000 unit) capsule 1,250 mcg PO WK Rx Instructions: friday torsemide 20 mg tablet 20 mg PO DAILY PRN (Reason: Fluid Retention) aspirin 81 mg Tablet,Delayed Release (Dr/Ec) 81 mg PO DAILY metoprolol succinate 25 mg tablet extended release 24 hr 12.5 mg PO DAILY Linzess 290 mcg capsule 290 mcg PO DAILY Rx Instructions: Take 1 capsule by mouth once daily Referrals Referrals: Pari Bales MD [Primary Care Provider] - Patellar fracture Qualifiers: Encounter type: initial encounter Fracture type: closed Fracture morphology: unspecified fracture morphology Fracture alignment: nondisplaced Laterality: right Qualified Code(s): S82.001A - Unspecified fracture of right patella, initial encounter for closed fracture Fall Qualifiers: Encounter type: initial encounter Qualified Code(s): W19.XXXA - Unspecified fall, initial encounter Head injury Qualifiers: Encounter type: initial encounter Qualified Code(s): S09.90XA - Unspecified injury of head, initial encounter
--- NOTE | 2023-03-10 12:29 | CT Scan Report ---
CT head/brain wo con CLINICAL HISTORY: fall Technique: Contiguous axial CT images of the head were acquired from the base of the skull to the horace dayana without intravenous contrast administration. Images were viewed in brain, subdural and bone [facility]. Automated dose lowering techniques and/or adjustment according to patient size were utilized for this exam. Comparison: Comparison is made to CT head 11/18/2022 Findings: Areas of decreased attenuation are present in the periventricular and subcortical white matter bilate rally consistent with small vessel ischemic disease. Generalized cerebral atrophy with commensurate e nlargement of the ventricles, sulci, and cisterns is also present. There is no acute intracranial hem orrhage or evidence of acute territorial infarction. No shift of the midline structures, mass effect, or extra-axial abnormalities are shown. Atherosclerotic calcifications are present in the intracran ial segments of the internal carotid arteries. Imaged portions of the paranasal sinuses and mastoid air cells are clear. The orbits appear normal. There are no acute fractures of the calvaria or scalp swelling. Impression: No acute intracranial hemorrhage, no evidence of acute territorial infarction or other acute intracra nial disease process. ACT 112: Negative or not required by law. Electronically signed by: Jef Mccabe M.D. 03/10/2023 12:27 PM
--- NOTE | 2023-03-10 12:30 | CT Scan Report ---
CT SCAN OF THE CERVICAL SPINE CLINICAL HISTORY: Trauma. Fall. COMPARISON STUDY: CT of the cervical spine dated 11/18/2022. TECHNIQUE: CT scan of the cervical spine is performed from the skull base to the upper thoracic spine . Images are reviewed in the axial, sagittal, and coronal planes. IV contrast was not administered fo r this examination. A dose lowering technique was utilized adhering to the principles of ALARA. CT DOSE: 921.85 mGy.cm FINDINGS: Skeletal structures: The skeletal structures are osteopenic. There is no evidence of fracture or subl uxation involving the cervical spine. Vertebral body height and alignment are maintained. There is s traightening of the cervical lordosis. Anterior osteophytes are seen throughout. The odontoid process and lateral masses are intact. The atlantoaxial articulation is preserved noting productive degenera tive change. The spinous processes appear intact. There is mild multilevel cervical spondylosis. Face t arthropathy seen at several levels. Intervertebral discs: There is minimal disc space narrowing. Central canal: Grossly patent. Soft tissues: The prevertebral and paraspinous soft tissues are within normal limits. There is mild a therosclerotic calcification of the carotid bulbs. Calvarium: The visualized calvarium at the skull base appears intact. Brain parenchyma: Partially visualized brain parenchyma at the skull base is within normal limits. Sinuses and mastoids: The visualized paranasal sinuses are clear. The mastoid air cells are well pneu matized. Lung apices: Clear as visualized. IMPRESSION: 1. There is no evidence of fracture or subluxation involving the cervical spine. 2. Osteopenia and spondylotic change as above. ACT 112: Negative or not required by law. Electronically signed by: Redd Ibarra M.D. 03/10/2023 12:29 PM
--- NOTE | 2023-03-10 13:56 | XRay Report ---
XR knee RT 1 or 2V routine CLINICAL HISTORY: fall TECHNIQUE: 2 views of the right knee were obtained. Comparison: Comparison is made to right femur radiograph 11/20/2019 FINDINGS: Medullary nail is seen. Degenerative changes are seen. A moderate suprapatellar effusion is seen. Sof t tissue swelling is seen about the knee. IMPRESSION: Degenerative changes and moderate suprapatellar effusion without evidence of underlying fracture. ACT 112: Negative or not required by law. Electronically signed by: Jef Mccabe M.D. 03/10/2023 1:55 PM
--- NOTE | 2023-03-10 14:03 | XRay Report ---
RIGHT SHOULDER 3 VIEWS CLINICAL HISTORY: Fall. Right shoulder injury. FINDINGS: 3 views of the right shoulder are obtained. Correlation is made with chest x-ray dated 11/18. The skeletal structures are osteopenic. No acute fracture is seen. A right shoulder arthroplas ty is in near anatomic alignment. No periprosthetic lucency is seen. Mild cortical irregularity along the medial cortex of the proximal humerus is unchanged from a prior chest x-ray. Productive degenera tive change is noted at the acromioclavicular joint. There are chronic/healed right-sided rib fractur es. The overlying soft tissues are within normal limits. The visualized right lung parenchyma appears clear. IMPRESSION: 1. There is no radiographic evidence of acute fracture. 2. A right shoulder arthroplasty is in near anatomic alignment. Electronically signed by: Redd Ibarra M.D. 03/10/2023 2:01 PM
--- NOTE | 2023-03-10 14:14 | XRay Report ---
RIGHT FEMUR 3 VIEWS CLINICAL HISTORY: Fall. Right leg pain. FINDINGS: AP, frog-leg, and crosstable lateral views of the right femur are obtained. No prior studie s are available for comparison at the time of dictation. The skeletal structures are osteopenic. Ther e is posttraumatic deformity of the right proximal femur with intertrochanteric and intramedullary na ils in place. There is no radiographic evidence of acute right femoral fracture. There is cortical ir regularity along the lateral cortex of the acetabular roof. Mild arthritic changes seen in the hip a nd knee joints. There is a large knee joint effusion with lipohemarthrosis. IMPRESSION: 1. There is no radiographic evidence of acute right femoral fracture. 2. Large knee joint effusion with lipohemarthrosis. This is highly suspicious for occult fracture at the knee joint. CT correlation is recommended. 3. There is indeterminate cortical irregularity along the right acetabular roof. This may be physiolo gic. If there is clinical concern for acetabular fracture a pelvic CT should be obtained. 4. Posttraumatic and post surgical change of the right femur as above. Electronically signed by: Redd Ibarra M.D. 03/10/2023 2:13 PM
--- NOTE | 2023-03-10 14:23 | XRay Report ---
XR elbow RT min 3V routine CLINICAL HISTORY: fall. Right elbow pain. COMPARISON STUDY: None. FINDINGS: Displacement of the anterior and posterior humeral fat pads consistent with an elbow effusi on. Therefore, this suggests an underlying right elbow fracture. However, no fractures identified. No dislocation. Mild posterior soft tissue swelling. Partially visualized humeral prosthesis. The bones are osteopenic. IMPRESSION: No definite fractures identified within the right elbow. However, there is a right elbow effusion which suggests the possibility of underlying occult fracture. Follow-up radiograph in 2 wee ks is recommended for confirmation. ACT 112: Positive. There are findings on this exam that require communication between the performing entity and the patient following Patient Test Result Information Act ([place] Act 112) guidelines. Electronically signed by: Urbano Merchant M.D. 03/10/2023 2:21 PM
--- NOTE | 2023-03-10 15:30 | CT Scan Report ---
CT SCAN OF THE RIGHT KNEE WITHOUT IV CONTRAST CLINICAL HISTORY: Fall. Right knee injury. Abnormal x-ray. COMPARISON STUDY: Radiographs of the right knee dated 03/10/2023. TECHNIQUE: CT scan of the right knee is performed from the distal femur to the proximal tibia and fib miki. Images are reviewed in the axial, sagittal, and coronal planes. IV contrast was not administered for this examination. A dose lowering technique was utilized adhering to the principles of ALARA. CT DOSE: 694.68 mGy.cm FINDINGS: The skeletal structures are osteopenic. There is a nondisplaced vertically oriented fractur e through the lateral patellar facet with overlying soft tissue edema. No additional acute fracture i s identified. There is a large joint effusion with lipohemarthrosis. An intramedullary nail is noted in the distal femur. There is mild tricompartmental degenerative joint space narrowing. There is gene ralized atrophy of the regional musculature. IMPRESSION: Nondisplaced patellar fracture as above with lipohemarthrosis. ACT 112: Negative or not required by law. Electronically signed by: Redd Ibarra M.D. 03/10/2023 3:28 PM
--- NOTE | 2023-03-10 15:46 | CT Scan Report ---
CT hip RT wo con CLINICAL HISTORY: eval for fracture TECHNIQUE: Multidetector row helical CT of the right hip was performed without intravenous contrast. Coronal and sagittal reformations were obtained. Automated dose lowering techniques and/or adjustment according to patient size were utilized for this examination. Comparison: Comparison is made to right femur radiograph 03/10/2023 FINDINGS: The osseous structures are without fracture or dislocation. There is an old healed intratrochanteric fracture with bony bridging noted. Degenerative changes are seen in the joints. No joint effusion is seen. The soft tissues are unremarkable. IMPRESSION: Subacute to chronic or trochanteric fracture with expected healing changes. No superimposed acute fra cture is seen. ACT 112: Negative or not required by law. Electronically signed by: Jef Mccabe M.D. 03/10/2023 3:44 PM
[2023-03-10 16:31] LABS: Albumin Globulin Ratio 1.4 (0.9-2); Albumin Level 4.1 gm/dl (3.4-5.0); BUN Creatinine Ratio 33.3 (10-20); Bilirubin,Total 0.4 mg/dl (0.2-1.0); Calcium 9.6 mg/dl (8.6-10.3); Creatinine Clr Calc Pharmacy 48.7 ml/min; Est GFR (African American) 91.4 ml/min; Est GFR (Non-African American) 78.9 ml/min; Potassium 3.6 mmol/L (3.5-5.1); Total Protein 7.1 gm/dl (6.0-8.3)
[2023-03-10 16:56] LABS: Basophils # (auto) 0.07 K/uL (0-0.2); Basophils % (auto) 0.8 %; Eosinophils # (auto) 0.23 K/uL (0-0.50); Eosinophils % (auto) 2.8 %; Hemoglobin 12.3 g/dl (12.0-16.0); Immature Granulocytes # (auto) 0.02 K/uL (0.01-0.20); Immature Granulocytes % (auto) 0.2 %; Lymphocytes # (auto) 2.14 K/uL (1.2-3.4); Lymphocytes % (auto) 25.8 %; Mean Corpuscular Hemoglobin 28.7 pg (25.0-34.0); Mean Corpuscular Hgb Conc 32.4 g/dL (32.0-36.0); Mean Corpuscular Volume 88.8 fL (80.0-100.0); Mean Platelet Volume 10.5 fL (9.4-12.4); Monocytes # (auto) 0.64 K/uL (0.11-0.59); Monocytes % (auto) 7.7 %; Neutrophils % (auto) 62.7 %; Platelet Count 263 K/uL (130-400); RDW Coefficient of Variation 13.9 % (11.5-14.5); RDW Standard Deviation 45.1 fL (36.4-46.3); Red Blood Count 4.28 M/uL (4.20-5.40)
[2023-03-10] MEDS ORDERED: POTASSIUM CHLORIDE CRTAB 20 MEQ TABCR PO PRN (17:11)
[2023-03-10] MEDS ORDERED: ALBUTEROL 0.083% NEBU SOLN 3 ML VIAL INH PRN (17:11)
[2023-03-10] MEDS ORDERED: NITROGLYCERIN SL 0.4 MG/TAB TAB SL PRN (17:11)
--- NOTE | 2023-03-10 17:15 | History & Physical Report ---
Date of Service March 10, 2023 Assessment & Plan (1) Patellar fracture: Plan: Patient admitted after a mechanical fall. Tylenol around the clock. consult ortho. appears non surgical. (2) Effusion of right elbow: Plan: Patient in a sling. Appears this is non operative. will place on tylenol scheduled dose (3) History of hip surgery: Plan: recent hip surgery by Dr. 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 No evidence of failure. Holding isosorbide mononitrate 60 mg p.o. twice daily and metoprolol 25 mg p.o. twice daily in the setting of hypotension Plan dvt: ordered on time dose of heparin. in case patient will need surgery in AM History of Present Illness Chief Complaint: fall Primary Care Provider: Pari Bales MD 87 yo female presents to the ED and falling secondary to tripping. She was at the [employer] and her shoe got caught with something on the floor and she tripped. Her left side of her head hit the wall and then she fell on her right side on to the ground. Patient is now complaining of right shoulder and elbow pain. Patient is worried that she may have broke a bone as she recently had surgical repair of her hip this past sprint. Patient denies any blurry vision, headache, chest pain, SOB, abdominal pain. Allergies Allergy/AdvReac Type Severity Reaction Status Date / Time Penicillins Allergy Intermediate HIVES Verified 08/14/22 09:26 Sulfa (Sulfonamide Allergy Intermediate Unknown Verified 03/10/23 16:02 Antibiotics) Home Medications Medication Instructions Recorded Confirmed Type albuterol sulfate 2.5 mg/3 mL 2.5 mg continuous nebulization Q6 11/19/22 03/10/23 History (0.083 %) solution for nebulization PRN Shortness Of Breath aspirin 81 mg tablet,delayed 81 mg PO DAILY 11/19/22 03/10/23 History release ergocalciferol (vitamin D2) 1,250 1,250 mcg PO WK 11/19/22 03/10/23 History mcg (50,000 unit) capsule metoprolol succinate 25 mg 12.5 mg PO DAILY 11/19/22 03/10/23 History tablet,extended release 24 hr nitroglycerin 0.4 mg sublingual 0.4 mg sublingual UD PRN Chest Pain 11/19/22 0 03/10/23 History tablet omeprazole 40 mg capsule,delayed 40 mg PO DAILYBL 11/19/22 03/10/23 History release potassium chloride 20 mEq 20 meq PO DAILY PRN if taking 11/19/22 03/10/23 Histo ry tablet,extended release(part/cryst) torsemide sertraline 100 mg tablet 100 mg PO QPM 11/19/22 03/10/23 History temazepam 30 mg capsule 30 mg PO HS 11/19/22 03/10/23 History torsemide 20 mg tablet 20 mg PO DAILY PRN Fluid Retention 11/19/22 03/10/23 History linaclotide 290 mcg capsule 290 mcg PO DAILY 03/10/23 03/10/23 History (Jed) Past Med/Surg History Medical History Fall Irritable bowel disease Surgical History History of hip surgery 11/19/22: ([facility]) R long TFN or IT fx History of right shoulder replacement Family History Other No significant family history Social History Smoking Status: Never smoker Hx Alcohol Use: No Hx Substance Use: No Preferred Language: Czech Communication Ability: Effective 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 Required: No Beliefs That Will Affect Care: None Current Living Situation: Alone Current Living Situation Comment: lives in 1 story condo, no steps Other Information That Helps Us Care for You: No Feels Safe at Home: Yes Safety Concerns: Feels Safe At This Time Assistive Devices: Brace/Splint/Immobilizer, Glasses and Walker Review of Systems Constitutional: no fever and no body aches Eyes: no blind spots Ear, Nose, Mouth, Throat: no tinnitus Respiratory: no cough and no dyspnea Cardiovascular: no chest pain Gastrointestinal: no abdominal pain Genitourinary: no dysuria Musculoskeletal: no radicular pain Integumentary: no acne Neurologic: no gait abnormality Psychiatric: no behavioral changes Endocrine: no fatigue Hematologic / Lymphatic: no easy bleeding Allergy / Immunological: no GI upset with certain foods Physical Exam Constitutional: WD/WN, vitals as above (patient in a sling for her right extremity) Eyes: PERRL, conjunctivae normal, anicteric sclerae ENMT: external ear and nose normal, oropharynx normal Neck: trachea midline, no thyromegaly Respiratory: normal respiratory effort, lungs clear to auscultation Cardiovascular: RRR, no murmur, no edema Gastrointestinal (Abdomen): normal bowel sounds, soft, nontender, no hepatosplenomegaly Musculoskeletal: Head/Neck/Chest: normocephalic right knee in a brace Skin: no rashes, warm and dry Neurologic: PERRL, EOMI, accommodation nl, no face palsy, no dysarthria Psychiatric: A+Ox3, euthymic affect Lymphatic: no cervical or axillary lymphadenopathy Results & Data Results & Data Vital Signs (Past 12 Hours) Vital Signs Temp Pulse Pulse Resp BP BP Pulse Ox 03/10/23 16:31 96 03/10/23 16:31 118/77 03/10/23 16:00 70 16 96 03/10/23 15:30 70 14 95 03/10/23 15:00 70 13 99 03/10/23 14:30 69 17 99 03/10/23 14:00 65 16 97 03/10/23 13:31 65 03/10/23 13:00 69 14 97 03/10/23 13:00 111/53 L 03/10/23 12:30 67 17 98 03/10/23 12:30 116/58 L 03/10/23 12:00 70 15 99 03/10/23 12:00 99/60 L 03/10/23 11:30 71 15 98 03/10/23 11:30 116/63 03/10/23 11:00 72 13 99 03/10/23 11:00 112/54 L 03/10/23 10:55 72 19 96 03/10/23 13:29 89 20 111/53 L 98 03/10/23 11:54 66 20 116/63 98 03/10/23 10:58 72 03/10/23 10:52 36.5 C 76 16 136/61 94 O2 Del Method 03/10/23 16:31 03/10/23 16:31 03/10/23 16:00 03/10/23 15:30 03/10/23 15:00 Room Air 03/10/23 14:30 03/10/23 14:00 03/10/23 13:31 03/10/23 13:00 03/10/23 13:00 03/10/23 12:30 03/10/23 12:30 03/10/23 12:00 03/10/23 12:00 03/10/23 11:30 03/10/23 11:30 03/10/23 11:00 03/10/23 11:00 03/10/23 10:55 03/10/23 13:29 Room Air 03/10/23 11:54 Room Air 03/10/23 10:58 03/10/23 10:52 Room Air Code Status & VTE Plan VTE Prophylaxis Plan VTE Prophylaxis will be ordered: Yes PG Care Time/CCT Total # of Minutes Spent Total Time Spent with Patient: Total time spent is greater than 50% in coordination of care (as documented) at patient's floor/unit and/or counseling patient: Coding Level of Care Code 67793 INT INP/OBS CARE 3/75MIN Diagnoses Patellar fracture S82.001A Encounter type: initial encounter Fracture alignment: nondisplaced Fracture morphology: unspecified fracture morphology Fracture type: closed Laterality: right Effusion of right elbow M25.421 History of hip surgery Z98.890 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
[2023-03-10] MEDS ORDERED: TORSEMIDE 10 MG TAB PO PRN (20:11)
[2023-03-10] MEDS ORDERED: SERTRALINE HCL 100 MG TABLET PO SCH (21:00)
[2023-03-10] MEDS: TEMAZEPAM 15 MG CAPSULE PO SCH (21:28)
[2023-03-10] MEDS: ACETAMINOPHEN 325 MG TAB PO SCH (21:28)
[2023-03-10] MEDS ORDERED: Nursing to Pharmacy Communication SCH (21:45)
[2023-03-10] MEDS ORDERED: HEPARIN SOD 5,000 UNIT/0.5 ML VIAL SQ STA (23:12)
[2023-03-11] MEDS ORDERED: KETOROLAC TROMETHAMINE 15 MG/ML VIAL IV PRN (02:59)
[2023-03-11] MEDS ORDERED: HYDROmorphone INJ 0.5 MG/0.5 ML SYR IV STA (06:24)
[2023-03-11 06:56] LABS: Hemoglobin 10.6 g/dl (12.0-16.0); Mean Corpuscular Hgb Conc 33.1 g/dL (32.0-36.0); Mean Corpuscular Volume 87.7 fL (80.0-100.0); Mean Platelet Volume 9.5 fL (9.4-12.4); Platelet Count 217 K/uL (130-400); RDW Coefficient of Variation 13.9 % (11.5-14.5); RDW Standard Deviation 44.6 fL (36.4-46.3); Red Blood Count 3.65 M/uL (4.20-5.40); White Blood Count 7.15 K/ul (4.8-10.8)
[2023-03-11 07:38] LABS: BUN Creatinine Ratio 27.7 (10-20); Calcium 8.9 mg/dl (8.6-10.3); Creatinine Clr Calc Pharmacy 49.5 ml/min; Est GFR (African American) 91.9 ml/min; Est GFR (Non-African American) 79.3 ml/min; Phosphorus 4.2 mg/dl (2.5-4.9); Potassium 3.5 mmol/L (3.5-5.1)
[2023-03-11] MEDS ORDERED: ERGOCALCIFEROL 50,000 UNITS 1250 MCG CAP PO SCH (09:00)
[2023-03-11] MEDS: LINACLOTIDE 145 MCG CAPSULE PO SCH (09:46)
[2023-03-11] MEDS: SERTRALINE HCL 100 MG TABLET PO SCH (09:46)
[2023-03-11] MEDS: METOPROLOL SUCC 25MG EXT REL TAB PO SCH (09:47)
[2023-03-11] MEDS: ACETAMINOPHEN 325 MG TAB PO SCH ×4 (09:47→23:26)
[2023-03-11] MEDS: ASPIRIN 81 MG ECTAB PO SCH (09:47)
[2023-03-11] MEDS: PANTOprazole 40 MG TAB PO SCH (09:47)
[2023-03-11] MEDS ORDERED: HEPARIN SOD 5,000 UNIT/0.5 ML VIAL SQ STA (11:02)
[2023-03-11 13:36] LABS: Appearance Urine Cloudy (Clear); Bacteria Urine Automated Negative (Negative); Bilirubin Urine Negative (Negative); Blood Urine 1+ (Negative); Color Urine Yellow; Glucose Urine UA Negative (Negative); Ketones Urine Trace (Negative); Leukocyte Esterase Urine 1+ (Negative); Nitrite Urine Negative (Negative); Protein Urine Negative (Negative); Specific Gravity Urine 1.016 (1.000-1.030); Urobilinogen Urine Negative (Negative); pH Urine 5.5 (4.5-7.5)
[2023-03-11] MEDS: HEPARIN SOD 5,000 UNIT/0.5 ML VIAL SQ SCH ×2 (14:48→21:17)
--- NOTE | 2023-03-11 16:13 | Orthopedic Consultation ---
Date of Service March 11, 2023 Assessment & Plan (1) Patellar fracture: Discontinue knee immobilizer as this may cause more of a fall risk for her with ambulation. Okay to weight bear as tolerated, but will need a walker for possibly a month. PT/OT WBAT. Avoid deep knee bending, past 90 degrees. This should improve symptomatically over 4-6 weeks for her, No follow up necessarily needed. She can follow up with us as needed. She has an elbow and shoulder contusions as well. Discontinue arm sling and progress activity as tolerated. She was seen and examined by Dr. Munson. (2) Contusion of right elbow: (3) Contusion of left shoulder: History of Present Illness Reason for Consultation: . Requesting Physician: . Attending Physician: Bethel Campos . Kat is a 87 year old patient, approximately 4 months s/p IM nailing of right hip fracture with Dr. Hdz, tripped and fell yesterday injuring her right elbow and right knee. She has some bruising of the left shoulder but denies shoulder pain. She underwent xrays and ct scan which showed a nondisplaced patella fracture. She was placed in an arm sling and knee immobilzer. Allergies Allergy/AdvReac Type Severity Reaction Status Date / Time Penicillins Allergy Intermediate HIVES Verified 08/14/22 09:26 Sulfa (Sulfonamide Allergy Intermediate Unknown Verified 03/10/23 16:02 Antibiotics) Home Medications Medication Instructions Recorded Confirmed Type albuterol sulfate 2.5 mg/3 mL 2.5 mg continuous nebulization Q6 11/19/22 03/10/23 History (0.083 %) solution for nebulization PRN Shortness Of Breath aspirin 81 mg tablet,delayed 81 mg PO DAILY 11/19/22 03/10/23 History release ergocalciferol (vitamin D2) 1,250 1,250 mcg PO WK 11/19/22 03/10/23 History mcg (50,000 unit) capsule metoprolol succinate 25 mg 12.5 mg PO DAILY 11/19/22 03/10/23 History tablet,extended release 24 hr nitroglycerin 0.4 mg sublingual 0.4 mg sublingual UD PRN Chest Pain 11/19/22 03/10/23 History tablet omeprazole 40 mg capsule,delayed 40 mg PO DAILYBL 11/19/22 03/10/23 History release potassium chloride 20 mEq 20 meq PO DAILY PRN if taking 11/19/22 03/10/23 History tablet,extended release(part/cryst) torsemide sertraline 100 mg tablet 100 mg PO QPM 11/19/22 03/10/23 History temazepam 30 mg capsule 30 mg PO HS 11/19/22 03/10/23 History torsemide 20 mg tablet 20 mg PO DAILY PRN Fluid Retention 11/19/22 03/10/23 History linaclotide 290 mcg capsule 290 mcg PO DAILY 03/10/23 03/10/23 History (Linzess) Past Med/Surg History Medical History Fall Irritable bowel disease Surgical History History of hip surgery 11/19/22: ([facility]) R long TFN or IT fx History of right shoulder replacement Family History Other No significant family history Social History Smoking Status: Never smoker Hx Alcohol Use: No Hx Substance Use: No Preferred Language: Nicaraguan Communication Ability: Effective Solution Coordinator Required: No Beliefs That Will Affect Care: None Current Living Situation: Alone Current Living Situation Comment: lives in 1 story condo, no steps Other Information That Helps Us Care for You: No Feels Safe at Home: Yes Safety Concerns: Feels Safe At This Time Assistive Devices: Cane, Walker and Wheelchair Review of Systems All systems reviewed & are unremarkable except as noted in HPI & below. Physical Exam .alert and oriented. NAD Right arm: Good motion of her shoulder without pain. Mild elbow pain with range of motion. She has a band aid on the elbow for an abrasion. No elbow effusion. Good range of motion. Tricep is intact. NVI. Left Shoulder: ecchymosis around the left shoulder. Good range of motion without pain. Right knee: +effusion. Able to do a straight leg raise. Skin intact. Results & Data Results & Data Laboratory Results . Diagnostic Findings .xrays and ct scan of the knee reviewed. Xrays show a large knee effusion, and ct scan shows a nondisplaced vertical patella fracture. xrays of the right elbow show no obvious fracture. She has an anterior fat pad but no posterior fat pain. PG Care Time/CCT Total # of Minutes Spent Total Time Spent with Patient: Total time spent is greater than 50% in coordination of care (as documented) at patient's floor/unit and/or counseling patient: Coding Level of Care Code 98774 IN/OBS CONSULT LVL 3,45M Diagnoses Patellar fracture S82.001A Encounter type: initial encounter Fracture alignment: nondisplaced Fracture morphology: unspecified fracture morphology Fracture type: closed Laterality: right Contusion of right elbow S50.01XA Contusion of left shoulder S40.012A (1) Patellar fracture Encounter type: initial encounter Fracture alignment: nondisplaced Fracture morphology: unspecified fracture morphology Fracture type: closed Laterality: right Qualified Code(s): S82.001A - Unspecified fracture of right patella, initial encounter for closed fracture
[2023-03-11] MEDS: TEMAZEPAM 15 MG CAPSULE PO SCH (21:17)
--- NOTE | 2023-03-11 22:43 | Hospitalist Progress Note ---
Date of Service March 11, 2023 Assessment & Plan (1) Patellar fracture: Plan: Patient admitted after a mechanical fall. Tylenol around the clock. consult ortho. appears non surgical. Appreciate input from ortho. (2) Effusion of right elbow: Plan: Patient in a sling. Appears this is non operative. placed on tylenol scheduled dose ordered tramadol (3) History of hip surgery: Plan: recent hip surgery by Dr. 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 No evidence of failure. Holding isosorbide mononitrate 60 mg p.o. twice daily and metoprolol 25 mg p.o. twice daily in the setting of hypotension Plan dvt: ordered on time dose of heparin. in case patient will need surgery in AM Admission and Anticipated Discharge Date Admission Date: March 10, 2023 Subjective Patient reports pain was not fully controlled with tylenol. Patient required dose of dilaudid. Review of Systems Review of Systems: All systems reviewed & are unremarkable except as noted in HPI & below Physical Exam Constitutional: WD/WN, vitals as above (patient in a sling for her right extremity) Eyes: PERRL, conjunctivae normal, anicteric sclerae ENMT: external ear and nose normal, oropharynx normal Neck: trachea midline, no thyromegaly Respiratory: normal respiratory effort, lungs clear to auscultation Cardiovascular: RRR, no murmur, no edema Gastrointestinal (Abdomen): normal bowel sounds, soft, nontender, no hepatosplenomegaly Musculoskeletal: Head/Neck/Chest: normocephalic Skin: no rashes, warm and dry Neurologic: PERRL, EOMI, accommodation nl, no face palsy, no dysarthria Psychiatric: A+Ox3, euthymic affect Lymphatic: no cervical or axillary lymphadenopathy Results & Data Results & Data Vital Signs (Past 12 Hours) Vital Signs Temp Pulse Resp BP Pulse Ox O2 Del Method 03/11/23 21:28 36.5 C 61 16 105/63 95 Room Air 03/11/23 14:26 36.6 C 76 16 90/56 L 97 Room Air PG Care Time/CCT Total # of Minutes Spent Total Time Spent with Patient: Total time spent is greater than 50% in coordination of care (as documented) at patient's floor/unit and/or counseling patient: Coding Level of Care Code 64733 SUB INP/OBS CARE MIN Diagnoses Patellar fracture S82.001A Encounter type: initial encounter Fracture alignment: nondisplaced Fracture morphology: unspecified fracture morphology Fracture type: closed Laterality: right Effusion of right elbow M25.421 History of hip surgery Z98.890 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
[2023-03-11] MEDS ORDERED: traMADol HCL 50 MG TABLET PO PRN (23:02)
[2023-03-12] MEDS: HEPARIN SOD 5,000 UNIT/0.5 ML VIAL SQ SCH ×3 (06:09→22:06)
[2023-03-12] MEDS: METOPROLOL SUCC 25MG EXT REL TAB PO SCH (07:55)
[2023-03-12] MEDS: ACETAMINOPHEN 325 MG TAB PO SCH ×4 (07:56→21:55)
[2023-03-12] MEDS: SERTRALINE HCL 100 MG TABLET PO SCH (07:56)
[2023-03-12] MEDS: ASPIRIN 81 MG ECTAB PO SCH (07:56)
[2023-03-12] MEDS: LINACLOTIDE 145 MCG CAPSULE PO SCH (09:51)
[2023-03-12] MEDS: PANTOprazole 40 MG TAB PO SCH (11:49)
--- NOTE | 2023-03-12 14:54 | Hospitalist Progress Note ---
Date of Service March 12, 2023 Assessment & Plan (1) Patellar fracture: Plan: Right knee. Orthopedic surgery consult appreciated. No surgery indicated. OT and PT have recommended home with home health services at the time of discharge. Pain control measures (2) Effusion of right elbow: Plan: Patient in a sling. Non operative. Pain control measures. Occurred after mechanical fall (3) History of hip surgery: Plan: recent hip surgery by Dr. Hdz in spring. 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 No evidence of failure. Imdur and metoprolol held on admission. These have been restarted. Plan Anticipate discharge to home with home health services tomorrow, March 13 Admission and Anticipated Discharge Date Admission Date: March 10, 2023 Subjective Alert and oriented. No acute distress. OT and PT evaluations have been completed. They have recommended return home with home health services which probably will occur tomorrow, March 13. Review of Systems Review of Systems: Constitutional-no fever or chills ENT-no blurred vision, no double vision, no epistaxis, no sore throat Respiratory-no cough, no wheezing, no shortness of breath Cardiac-no palpitations, no chest pain, no syncope GI-no nausea, vomiting, diarrhea, melena, hematochezia -no urinary retention, no urinary incontinence, no dysuria, no hematuria Musculoskeletal-right knee pain from recent fall Skin-no bruising, no rashes, no pruritus Neuro-no isolated weakness, no paresthesia Psych-no depression, no anxiety Physical Exam Physical Exam: General-alert and oriented x3, no fevers, no chills HEENT-head atraumatic and normocephalic, pupils equal and reactive to light, extraocular muscles intact Neck-no lymphadenopathy or thyromegaly, trachea midline Chest-clear to auscultation percussion. No rales wheezing or rhonchi Cardiac-regular rate and rhythm, normal S1 and S2, no murmurs Abdomen-normal bowel sounds, nontender, no hepatosplenomegaly Extremities-right knee Tenderness and associated swelling from underlying patella fracture Neuro-cranial nerves II through XII intact, motor and sensory function within normal limits, strength symmetrical , no focal deficits Psych-normal affect, normal mood Results & Data Results & Data Vital Signs (Past 12 Hours) Vital Signs Temp Pulse Resp BP Pulse Ox O2 Del Method 03/12/23 07:41 37.3 C 74 16 116/66 93 Room Air Laboratory Results 03/11/23 06:21 03/11/23 06:21 PG Care Time/CCT Total # of Minutes Spent Total Time Spent with Patient: Total time spent is greater than 50% in coordination of care (as documented) at patient's floor/unit and/or counseling patient: Coding Level of Care Code 58904 SUB INP/OBS CARE 3/50MIN Diagnoses Patellar fracture S82.001A Encounter type: initial encounter Fracture alignment: nondisplaced Fracture morphology: unspecified fracture morphology Fracture type: closed Laterality: right Effusion of right elbow M25.421 History of hip surgery Z98.890 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
[2023-03-12] MEDS: TEMAZEPAM 15 MG CAPSULE PO SCH (22:06)
[2023-03-13] MEDS: HEPARIN SOD 5,000 UNIT/0.5 ML VIAL SQ SCH (06:25)
[2023-03-13] MEDS: LINACLOTIDE 145 MCG CAPSULE PO SCH (08:16)
[2023-03-13] MEDS: ACETAMINOPHEN 325 MG TAB PO SCH (09:46)
[2023-03-13] MEDS: PANTOprazole 40 MG TAB PO SCH (09:46)
[2023-03-13] MEDS: ASPIRIN 81 MG ECTAB PO SCH (09:46)
[2023-03-13] MEDS: SERTRALINE HCL 100 MG TABLET PO SCH (09:46)
[2023-03-13] MEDS: METOPROLOL SUCC 25MG EXT REL TAB PO SCH (09:46)
--- NOTE | 2023-03-13 10:31 | Discharge Summary ---
Date of Service March 13, 2023 Admission HPI Per Admitting Provider 87 yo female presents to the ED and falling secondary to tripping. [facility] and her shoe got caught with something on the floor and she tripped. Her left side of her head hit the wall and then she fell on her right side on to the ground. Patient is now complaining of right shoulder and elbow pain. Patient is worried that she may have broke a bone as she recently had surgical repair of her hip this past sprint. Patient denies any blurry vision, headache, chest pain, SOB, abdominal pain. Principal Diagnosis Mechanical fall, right patella fracture Discharge Exam General-alert and oriented x3, no fevers, no chills HEENT-head atraumatic and normocephalic, pupils equal and reactive to light, e xtraocular muscles intact Neck-no lymphadenopathy or thyromegaly, trachea midline Chest-clear to auscultation percussion. No rales wheezing or rhonchi Cardiac-regular rate and rhythm, normal S1 and S2, no murmurs Abdomen-normal bowel sounds, nontender, no hepatosplenomegaly Extremities-right knee Tenderness and associated swelling from underlying patella fracture Neuro-cranial nerves II through XII intact, motor and sensory function within normal limits, strength symmetrical , no focal deficits Psych-normal affect, normal mood Discharge Data Allergies Allergy/AdvReac Type Severity Reaction Status Date / Time Penicillins Allergy Intermediate HIVES Verified 08/14/22 09:26 Sulfa (Sulfonamide Allergy Intermediate Unknown Verified 03/10/23 16:02 Antibiotics) Consultations 03/10/23 16:46 ED Decision to Admit Stat 03/10/23 20:15 Consult Orthopedic Surgery Routine Ordered Studies 03/10/23 12:04 CT cervical spine wo con Stat CT head/brain wo con Stat 03/10/23 14:27 CT hip RT wo con Stat CT knee RT wo con Stat Hospital Course (1) Patellar fracture: Right knee. Orthopedic surgery consult appreciated. No surgery indicated. OT and PT have recommended home with home health services at the time of discharge. Pain control measures (2) Effusion of right elbow: Patient in a sling. Non operative. Pain control measures. Occurred after mechanical fall (3) History of hip surgery: recent hip surgery by Dr. Hdz in spring. 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 No evidence of failure. Imdur and metoprolol held on admission. These have been restarted. Plan Home today with home health services, March 13 Total Time Total Time Spent Total Time Spent (In Minutes): 45 minutes Discharge Plan Discharge Items Patient Disposition: Home - Home Health Services Reason For Visit: MECHANICAL FAILL/ PATELLAR FRACTURE Discharge Diagnosis: Mechanical fall, right patella fracture Activity: Resume your previous activity Non-emergency contact: Primary Care Provider Call non-emergency contact if: your symptoms worsen Follow-up/Referrals: Pari Bales MD [Primary Care Provider] - Diet: Regular and Heart Healthy Addtl Attending Provider Instructions: Follow-up with primary care provider as scheduled. Take tramadol as needed for pain Pending Studies at Discharge: No Stand-Alone Forms: [employer] [facility], Smoking Cessation Medications and DC Order Prescriptions: New tramadol 50 mg Tablet 50 mg PO Q4H PRN (Reason: pain) Qty: 14 0RF Continued sertraline 100 mg tablet 100 mg PO QPM omeprazole 40 mg capsule,delayed release(DR/EC) 40 mg PO DAILYBL potassium chloride 20 mEq tablet,ER particles/crystals 20 meq PO DAILY PRN (Reason: if taking torsemide) Rx Instructions: take with food temazepam 30 mg capsule 30 mg PO HS albuterol sulfate 2.5 mg /3 mL (0.083 %) solution for nebulization 2.5 mg continuous nebulization Q6 PRN (Reason: Shortness Of Breath) nitroglycerin 0.4 mg tablet, sublingual 0.4 mg sublingual UD PRN (Reason: Chest Pain) ergocalciferol (vitamin D2) 1,250 mcg (50,000 unit) capsule 1,250 mcg PO WK Rx Instructions: friday torsemide 20 mg tablet 20 mg PO DAILY PRN (Reason: Fluid Retention) aspirin 81 mg Tablet,Delayed Release (Dr/Ec) 81 mg PO DAILY metoprolol succinate 25 mg tablet extended release 24 hr 12.5 mg PO DAILY Linzess 290 mcg capsule 290 mcg PO DAILY Rx Instructions: Take 1 capsule by mouth once daily Discharge Orders: Discharge Order (Routine); Ordered 03/13/23 Ordered By: Sukh Stewart Admission Data Admit Date/Time: 03/10/23 17:10 Attending Provider: Sukh Stewart Admit Provider: Bethel Campos Primary Care Provider: Pari Bales Other Providers: Bethel Campos ; Wilder Hdz ; [facility] Coding Level of Care Code 87183 INP/OBS DISCH >30 MIN Diagnoses Patellar fracture S82.001A Encounter type: initial encounter Fracture alignment: nondisplaced Fracture morphology: unspecified fracture morphology Fracture type: closed Laterality: right Effusion of right elbow M25.421 History of hip surgery Z98.890 Restrictive cardiomyopathy I42.5
== END 2023-03-13 13:04 | disposition home health service (06) | DRG 563 ==
LOC: ED 10:45 → 3W 17:10 → SUATTDRO 17:10 → 3W 19:26

== ENCOUNTER 2024-01-21 11:43 | Observation (INO) ==
[2024-01-21 13:10] LABS: Basophils # (auto) 0.05 K/uL (0.00-0.20); Basophils % (auto) 0.6 %; Eosinophils # (auto) 0.03 K/uL (0.00-0.50); Eosinophils % (auto) 0.4 %; Hematocrit (blood only) 37.1 % (37.0-47.0); Hemoglobin 12.6 g/dl (12.0-16.0); Immature Granulocytes # (auto) 0.02 K/uL (0.01-0.20); Immature Granulocytes % (auto) 0.2 %; Lymphocytes # (auto) 1.54 K/uL (1.20-3.40); Lymphocytes % (auto) 18.8 %; Mean Corpuscular Hemoglobin 29.3 pg (25.0-34.0); Mean Corpuscular Volume 86.3 fL (80.0-100.0); Monocytes # (auto) 0.56 K/uL (0.11-0.59); Monocytes % (auto) 6.8 %; Neutrophils # (auto) 6.01 K/uL (1.40-6.50); Neutrophils % (auto) 73.2 %; Platelet Count 213 K/uL (130-400); RDW Coefficient of Variation 12.7 % (11.5-14.5); RDW Standard Deviation 39.8 fL (36.4-46.3); White Blood Count 8.21 K/ul (4.8-10.8)
[2024-01-21 13:36] LABS: Alanine Aminotransferase 10 U/L (7-52); Albumin Globulin Ratio 1.5 (0.9-2); Albumin Level 4.3 gm/dl (3.4-5.0); Alkaline Phosphatase 41 U/L (34-104); BUN Creatinine Ratio 23.1 (10-20); Bilirubin,Total 0.8 mg/dl (0.2-1.0); Blood Urea Nitrogen 12 mg/dl (6-23); Carbon Dioxide 24 mmol/L (21-32); Chloride 92 mmol/L (98-107); Est GFR (African American) 98.2 ml/min; Est GFR (Non-African American) 84.7 ml/min; Globulin 2.8 gm/dl (2.5-4.0); Glucose 97 mg/dl (70-99(Fasting)); Total Protein 7.1 gm/dl (6.0-8.3)
[2024-01-21 13:42] LABS: Influenza A virus by PCR Negative (Neg); Influenza B virus by PCR Negative (Neg); RSV by PCR Negative (Neg); SARS CoV2 RNA(COVID-19) Ceph NEGATIVE (Negative)
[2024-01-21 14:42] LABS: Appearance Urine Clear (Clear); Bacteria Urine Automated None Seen (None Seen); Bilirubin Urine Negative (Negative); Blood Urine 3+ (Negative); Cast Urine Automated 0-2 /lpf (0-2); Color Urine Yellow; Epithelial Cell Urine Auto 0-2 /hpf (0-2); Glucose Urine UA Negative (Negative); Ketones Urine 3+ (Negative); Leukocyte Esterase Urine Negative (Negative); Nitrite Urine Negative (Negative); Protein Urine Trace (Negative); Specific Gravity Urine 1.017 (1.000-1.030); Urobilinogen Urine Negative (Negative); WBC Urine Automated 0-5 /hpf (0-5); pH Urine 5.5 (4.5-7.5)
[2024-01-21] MEDS: ONDANSETRON INJ 2 MG/ML 2 ML VIAL IV STA (14:44)
[2024-01-21] MEDS: FAMOTIDINE 20MG IV PUSH 20 MG/5 ML SYR IV STA (14:44)
[2024-01-21] MEDS: SODIUM CHLORIDE 0.9% 500 ML IV ONE (14:44)
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
--- NOTE | 2024-01-21 15:15 | XRay Report ---
XR chest 1V portable HISTORY: shortness of breath COMPARISON: Chest 11/18/2022. FINDINGS: No pneumothorax. No pleural effusions. No focal lung consolidations to suggest a pneumonia. No evidence for pulmonary edema. The cardiac silhouette remains mildly enlarged. There are calcifica tions within the aortic knob. There is a right shoulder prosthesis. A right shoulder prosthesis is ag ain noted. IMPRESSION: No significant change compared to the prior study. No acute process. ACT 112: Negative or not required by law. Electronically signed by: Urbano Merchant M.D. 01/21/2024 3:14 PM
[2024-01-21 15:32] LABS: Potassium 3.8 mmol/L (3.5-5.1)
[2024-01-21] MEDS: ACETAMINOPHEN 1,000 MG/100 ML VIAL IV STA (15:35)
[2024-01-21] MEDS: OPTIRAY 320 100ml IV ONE (15:49)
[2024-01-21] MEDS: SODIUM CHLORIDE 0.9% 1,000 ML IV ONE (16:05)
--- NOTE | 2024-01-21 16:13 | CT Scan Report ---
CT head/brain wo con CLINICAL HISTORY: ams Technique: Contiguous axial CT images of the head were acquired from the base of the skull to the horace dayana without intravenous contrast administration. Images were viewed in brain, subdural and bone [facility]. Automated dose lowering techniques and/or adjustment according to patient size were utilized for this exam. Comparison: Comparison is made to CT head 03/10/2020 Findings: Areas of decreased attenuation are present in the periventricular and subcortical white matter bilate rally consistent with small vessel ischemic disease. Generalized cerebral atrophy with commensurate e nlargement of the ventricles, sulci, and cisterns is also present. There is no acute intracranial hem orrhage or evidence of acute territorial infarction. No shift of the midline structures, mass effect, or extra-axial abnormalities are shown. Atherosclerotic calcifications are present in the intracran ial segments of the internal carotid arteries. Imaged portions of the paranasal sinuses and mastoid air cells are clear. The orbits appear normal. There are no acute fractures of the calvaria or scalp swelling. Impression: No acute intracranial hemorrhage, no evidence of acute territorial infarction or other acute intracra nial disease process. ACT 112: Negative or not required by law. Electronically signed by: Jef Mccabe M.D. 01/21/2024 4:12 PM
--- NOTE | 2024-01-21 16:25 | CT Scan Report ---
CT abd pelvis IV con only CLINICAL HISTORY: ap n/v/d TECHNIQUE: Helical axial images of the abdomen and pelvis were obtained and displayed. Automated dose lowering techniques and/or adjustment according to patient size were utilized for this exam. This e xam was performed with intravenous contrast. CT DOSE: 520.73 mGy.cm COMPARISON: Comparison is made to CT abdomen pelvis 01/25/2021 FINDINGS: Lower chest: No acute abnormality. Liver: Unremarkable. No focal lesions are seen. Gallbladder and biliary tree: Cholelithiasis is seen without evidence of cholecystitis. No intra- or extrahepatic biliary ductal dilation. Pancreas: Unremarkable, no focal lesions. Spleen: Unremarkable. Adrenals: Unremarkable. Kidneys and ureters: Renal cysts are seen. Bladder: Unremarkable. Reproductive organs: Patient is status post hysterectomy. Bowel: Extensive diverticulosis is seen. There is likely wall thickening and minimal fat stranding ab out the sigmoid colon. Patient is status post appendectomy. There is a small hiatal hernia. Lymph nodes Retroperitoneal: Unremarkable. Pelvic: Unremarkable. Mesenteric: Unremarkable. Peritoneum: Vascular prominence is seen about the sigmoid colon with minimal fat stranding. Vessels: Atherosclerotic calcifications are seen. Abdominal wall: Unremarkable. Bones: Degenerative changes in the visualized spine. Compression fracture of T12 and L1. The T12 frac ture is new from prior exam but appears chronic. IMPRESSION: 1. Possible mild sigmoid diverticulitis without evidence of perforation or abscess formation. Divert iculosis is seen. 2. Cholelithiasis without cholecystitis. 3. Renal cysts. 4. Additional findings as above. ACT 112: Negative or not required by law. Electronically signed by: Jef Mccabe M.D. 01/21/2024 4:24 PM
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
[2024-01-21 17:16] LABS: Adenovirus PCR Not Detected (NotDetected); Bordetella parapertussis PCR Not Detected (NotDetected); Bordetella pertussis PCR Not Detected (NotDetected); Chlamydia pneumoniae PCR Not Detected (NotDetected); Coronavirus 229E PCR Not Detected (NotDetected); Coronavirus CoV-2 (COVID19)PCR Not Detected (NotDetected); Coronavirus HKU1 PCR Not Detected (NotDetected); Coronavirus NL63 PCR Not Detected (NotDetected); Coronavirus OC43PCR Not Detected (NotDetected); Human Metapneumovirus PCR Not Detected (NotDetected); Influenza A PCR Not Detected (NotDetected); Influenza B PCR Not Detected (NotDetected); Mycoplasma pneumoniae PCR Not Detected (NotDetected); Parainfluenza Virus 1 PCR Not Detected (NotDetected); Parainfluenza Virus 2 PCR Not Detected (NotDetected); Parainfluenza Virus 3 PCR Not Detected (NotDetected); Parainfluenza Virus 4 PCR Not Detected (NotDetected); Respiratory Syncytial VirusPCR Not Detected (NotDetected); Rhinovirus/Enterovirus PCR Not Detected (NotDetected)
[2024-01-21] MEDS: metroNIDAZOLE 500 MG/100 ML BAG IV STA (17:42)
[2024-01-21] MEDS ORDERED: ACETAMINOPHEN 325 MG TAB PO PRN (17:53)
[2024-01-21] MEDS ORDERED: PANTOprazole 40 MG TAB PO PRN (17:53)
[2024-01-21] MEDS ORDERED: MONTELUKAST SODIUM 10 MG TABLET PO PRN (17:53)
[2024-01-21] MEDS ORDERED: ONDANSETRON INJ 2 MG/ML 2 ML VIAL IV PRN (17:53)
[2024-01-21] MEDS: D5W AND NSS 1,000 ML IV STA (18:02)
[2024-01-21] MEDS: CIPROFLOXACIN / D5W 400 MG/200 ML BAG IV STA (18:13)
[2024-01-21] MEDS: cefTRIAXone SODIUM 2,000 MG/50 ML BAG IV STA (18:46)
[2024-01-21] MEDS: LINACLOTIDE 145 MCG CAPSULE PO STA (18:54)
[2024-01-21] MEDS: POTASSIUM CHLORIDE CRTAB 20 MEQ TABCR PO STA (18:54)
[2024-01-21] MEDS: PLASMA-LYTE A 1,000 ML IV SCH (20:01)
[2024-01-21] MEDS: TEMAZEPAM 15 MG CAPSULE PO PRN (21:20)
[2024-01-21] MEDS: METOPROLOL SUCC 25MG EXT REL TAB PO SCH (21:30)
[2024-01-21 21:44] LABS: Anion Gap 6 (3-11); BUN Creatinine Ratio 21.7 (10-20); Blood Urea Nitrogen 10 mg/dl (6-23); Carbon Dioxide 23 mmol/L (21-32); Chloride 106 mmol/L (98-107); Est GFR (African American) 102.2 ml/min; Est GFR (Non-African American) 88.2 ml/min; Glucose 73 mg/dl (70-99(Fasting)); Potassium 3.4 mmol/L (3.5-5.1); Sodium 135 mmol/L (136-145)
[2024-01-21] MEDS: HEPARIN SOD 5,000 UNIT/0.5 ML VIAL SQ SCH (22:10)
[2024-01-21] MEDS: SERTRALINE HCL 50 MG TABLET PO SCH (22:10)
[2024-01-22] MEDS: metroNIDAZOLE 500 MG/100 ML BAG IV SCH (01:53)
[2024-01-22] MEDS: LINACLOTIDE 145 MCG CAPSULE PO SCH (05:38)
[2024-01-22 07:29] LABS: Basophils # (auto) 0.05 K/uL (0.00-0.20); Basophils % (auto) 0.8 %; Eosinophils # (auto) 0.24 K/uL (0.00-0.50); Eosinophils % (auto) 3.8 %; Hematocrit (blood only) 33.2 % (37.0-47.0); Hemoglobin 11.1 g/dl (12.0-16.0); Immature Granulocytes # (auto) 0.02 K/uL (0.01-0.20); Immature Granulocytes % (auto) 0.3 %; Lymphocytes # (auto) 1.06 K/uL (1.20-3.40); Lymphocytes % (auto) 16.9 %; Mean Corpuscular Hemoglobin 29.1 pg (25.0-34.0); Mean Corpuscular Hgb Conc 33.4 g/dL (32.0-36.0); Mean Corpuscular Volume 87.1 fL (80.0-100.0); Mean Platelet Volume 9.7 fL (9.4-12.4); Monocytes % (auto) 9.5 %; Neutrophils # (auto) 4.32 K/uL (1.40-6.50); Neutrophils % (auto) 68.7 %; Platelet Count 168 K/uL (130-400); RDW Coefficient of Variation 12.8 % (11.5-14.5); RDW Standard Deviation 40.8 fL (36.4-46.3); Red Blood Count 3.81 M/uL (4.20-5.40); White Blood Count 6.29 K/ul (4.8-10.8)
[2024-01-22 08:13] LABS: BUN Creatinine Ratio 14.9 (10-20); Creatinine Clr Calc Pharmacy 61.2 ml/min; Est GFR (African American) 101.5 ml/min; Est GFR (Non-African American) 87.6 ml/min; Potassium 3.7 mmol/L (3.5-5.1)
[2024-01-22] MEDS: ISOSORBIDE MONO EXTENDED REL 30 MG TABCR PO SCH (08:52)
[2024-01-22] MEDS: LOVASTATIN 20 MG TAB PO SCH (08:52)
[2024-01-22] MEDS: ASPIRIN 81 MG ECTAB PO SCH (08:53)
--- NOTE | 2024-01-22 10:01 | Hospitalist Progress Note ---
Date of Service January 22, 2024 Assessment & Plan (1) Diverticulitis: Plan: - Patient presented with 3 days of nausea, vomiting, nonbloody diarrhea, reduced urination, global weakness and intermittent confusion. - CT on admission shows possible diverticulitis without abscess or perforation. Penicillin allergy. Multiple instances of Ancef being given with good tolerance/no allergy. -- Patient placed on Cipro and Flagyl in ED. However given QTc prolonged at 484 ms, transitioned to ceftriaxone/Flagyl. -- Target outpatient course of cefdinir/Flagyl. -- Given there is no abscess or perforation noted on CT, surgical consult is not indicated at this time. - Diarrheal illness: diverticulitis versus viral GI illness -- Stool BioFire and C. difficile toxin -- uncollected. -- No leukocytosis. - Maintenance IVF at 80 cc/hr - Diet advanced to full liquids 01/23/24. (2) Hyponatremia: Plan: - Sodium 128 on admission. Potassium low normal, chloride low. -- Suspect solute depletion from diarrheal illness and poor intake. -- Low serum osmolality, normal urine osmolality, random urine sodium 28. Fluids given in ER, sodium repleted. Hypertonic saline deferred. - If sodium downtrends despite fluid resuscitation, fluid restrict to 1300 cc. (3) Confusion: Plan: Suspect due to acute diarrheal illness, +/- mild hyponatremia. 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 DVT prophylaxis: Heparin CODE STATUS: DNR/DNI Admission and Anticipated Discharge Date Admission Date: January 21, 2024 Subjective Patient seen and evaluated in bedside chair. She reports she is significantly better compared to yesterday, both with her abdominal discomfort and her m entation. She reports that yesterday she was very confused and did not know her children's names, but today she is fully oriented. She reports she has been well-tolerating the clear liquid diet, and has an appetite. Advanced to full liquid diet for lunch. She denies any abdominal pain, nausea, or vomiting. She reports some loose bowel movements. A stool sample has not been collected yet, so I informed the patient to ring her call rajan when she needs to have another bowel movement so a sample can be collected. Updated RN. Physical Exam Physical Exam: General: No acute distress, nondiaphoretic, well-developed, well-nourished. Skin: The skin was without rashes, erythema, edema, or bruising. Cardiac: Regular rate and rhythm without murmurs gallops or rubs. Pulm: Clear to auscultation bilaterally without wheezes, rales or rhonchi. No retractions or accessory muscle use. Abdominal: Positive bowel sounds x 4. Soft, nontender, nondistended, without masses or organomegaly. No guarding or rebound tenderness. Neuro: A&O x3. No focal neurological deficits. Results & Data Results & Data Vital Signs (Past 12 Hours) Vital Signs Temp Pulse Resp BP Pulse Ox O2 Del Method 01/22/24 07:32 36.4 C L 64 16 105/63 99 Room Air Laboratory Results Reviewed CBC Reviewed CMP Reviewed UA Reviewed respiratory bio fire PG Care Time/CCT Total # of Minutes Spent Total Time Spent with Patient: Total time spent is greater than 50% in coordination of care (as documented) at patient's floor/unit and/or counseling patient: Coding Level of Care Code 13814 SUB INP/OBS CARE 2/35MIN Diagnoses Diverticulitis K57.92 Hyponatremia E87.1 Confusion R41.0 Restrictive cardiomyopathy I42.5
[2024-01-22] MEDS: cefTRIAXone SODIUM 2,000 MG/50 ML BAG IV SCH (17:49)
[2024-01-22] MEDS ORDERED: Nursing to Pharmacy Communication SCH (20:00)
[2024-01-22] MEDS: POLYETHYLENE (MIRALAX) 17 GM PACK PO PRN (21:28)
[2024-01-22] MEDS: TEMAZEPAM 15 MG CAPSULE PO PRN (21:28)
[2024-01-23 08:14] LABS: Basophils # (auto) 0.05 K/uL (0.00-0.20); Basophils % (auto) 0.9 %; Eosinophils # (auto) 0.37 K/uL (0.00-0.50); Eosinophils % (auto) 6.9 %; Hematocrit (blood only) 33.4 % (37.0-47.0); Hemoglobin 11.3 g/dl (12.0-16.0); Immature Granulocytes # (auto) 0.01 K/uL (0.01-0.20); Immature Granulocytes % (auto) 0.2 %; Lymphocytes # (auto) 1.87 K/uL (1.20-3.40); Lymphocytes % (auto) 34.7 %; Mean Corpuscular Hemoglobin 29.7 pg (25.0-34.0); Mean Corpuscular Hgb Conc 33.8 g/dL (32.0-36.0); Mean Corpuscular Volume 87.9 fL (80.0-100.0); Mean Platelet Volume 9.8 fL (9.4-12.4); Monocytes # (auto) 0.49 K/uL (0.11-0.59); Monocytes % (auto) 9.1 %; Neutrophils % (auto) 48.2 %; Platelet Count 183 K/uL (130-400); RDW Coefficient of Variation 13.1 % (11.5-14.5); RDW Standard Deviation 42.1 fL (36.4-46.3); White Blood Count 5.39 K/ul (4.8-10.8)
[2024-01-23 08:35] LABS: BUN Creatinine Ratio 6.3 (10-20); Calcium 7.6 mg/dl (8.6-10.3); Est GFR (African American) 100.8 ml/min; Potassium 3.3 mmol/L (3.5-5.1)
[2024-01-23] MEDS: ISOSORBIDE MONO EXTENDED REL 30 MG TABCR PO SCH (09:04)
[2024-01-23] MEDS: POTASSIUM CHLORIDE CRTAB 20 MEQ TABCR PO STA (12:56)
[2024-01-23 14:45] LABS: Adenovirus F 40/41 PCR Not Detected (NotDetected); Astrovirus PCR Not Detected (NotDetected); Campylobacter PCR Not Detected (NotDetected); Cryptosporidium PCR Not Detected (NotDetected); Cyclospora cayetanensis PCR Not Detected (NotDetected); Entamoeba histolytica PCR Not Detected (NotDetected); Enteroaggregative E.coli(EAEC) Not Detected (NotDetected); Enteropathogenic E.coli (EPEC) Not Detected (NotDetected); Enterotoxigenic E.coli (ETEC) Not Detected (NotDetected); Giardia lamblia PCR Not Detected (NotDetected); Norovirus GI/GII PCR Not Detected (NotDetected); Plesiomonas shigelloides PCR Not Detected (NotDetected); Rotavirus A PCR Not Detected (NotDetected); Salmonella PCR Not Detected (NotDetected); Sapovirus PCR Not Detected (NotDetected); Shiga-like Toxin E.coli (STEC) Not Detected (NotDetected); Shigella/Enteroinvasive E.coli Not Detected (NotDetected); Vibrio cholerae PCR Not Detected (NotDetected); Vibrio species PCR Not Detected (NotDetected); Yersinia enterocolitica PCR Not Detected (NotDetected)
--- NOTE | 2024-01-23 16:28 | Discharge Summary ---
Discharge Summary Date of Service January 23, 2024 Notes For Next Care Provider Recommend colonoscopy in 6-8 weeks from discharge. Medication Changes From Visit Keflex and Flagyl x 5 days on discharge. Admission HPI Per Admitting Provider Kat is a 88-year-old female with history of GERD, hypertension, anxiety who presents with 3 days of nausea, vomiting, nonbloody diarrhea, global without focal weakness with intermittent confusion and who has also had reduced urination. On ER assessment she is acutely hyponatremic at 128, appears clinically volume contracted, and CTA/P shows suspected mild sigmoid diverticulitis without perforation/abscess and cholelithiasis without cholecystitis. Patient is suspected to have hyponatremia from solute depletion/diarrheal washout and acute nausea/vomiting/diarrhea due to diverticulitis. She is recommended for inpatient management of diverticulitis. Kat seen at the bedside with her family present. They report she has been much more confused compared to her baseline for 3 days. Has had loose but not liquid bowel movements without blood or melena. Has had some episodes of nonbloody nonbilious emesis in the last 2 days. She does not feel nauseous currently and does not feel like she has to throw up anymore. She notes that she was seen by a friend who had a stomach flu/diarrheal illness shortly before her symptoms began. Did have some nausea and transient abdominal discomfort, she has no pain whatsoever at time of admitting exam. Denies fevers, chills, sweats. Denies chest pain or chest pressure. Medical History: Reviewed Medications: Reviewed Surgical History: Reviewed Family history: Reviewed Allergies: Reviewed Social History: Denies tobacco and regular alcohol use Code Status: DNR/DNI Admission Exam Per Admitting Provider General: Oriented to name, month. Off on 2021. Is oriented to hospital but not which hospital. Nontoxic-appearing HEENT: Atraumatic, normocephalic. Pupils equal and reactive to light. Vision and hearing grossly intact. Mucous membranes are dry Pulm: CTAB A&P. -wheezes, -rales, -rhonchi. Symmetrical chest rise. No increased work of breathing. No respiratory distress. Cardiac: RRR, -mrg. Radial pulses intact and symmetrical. Abdominal: Nontender, nondistended, soft. BS present. Extremities: No edema. Principal Dx & Hospital Course #1 = Principal Diagnosis (1) Diverticulitis: - Patient presented with 3 days of nausea, vomiting, nonbloody diarrhea, reduced urination, global weakness and intermittent confusion. - CT on admission shows possible diverticulitis without abscess or perforation. Penicillin allergy. Multiple instances of Ancef being given with good tolerance/no allergy. -- Patient placed on Cipro and Flagyl in ED. However given QTc prolonged at 484 ms, transitioned to ceftriaxone/Flagyl. -- Given there is no abscess or perforation noted on CT, surgical consult is not indicated at this time. - Diarrheal illness: diverticulitis versus viral GI illness -- Stool BioFire and C. difficile toxin -- uncollected due to no bowel movements. Thus, infectious etiology unlikely at this time. -- No leukocytosis. - Diet advanced to low fiber, well-tolerated. - Upon discharge: -- Keflex and Flagyl x 5 days. -- Follow low fiber diet for 1 week, then advance as tolerated. -- Home health scheduled to see patient 01/27/24. -- Follow-up with PCP in 1-2 weeks. Recommend colonoscopy in 6-8 weeks. (2) Hyponatremia: - Sodium 128 on admission. Potassium low normal, chloride low. -- Suspect solute depletion from diarrheal illness and poor intake. -- Low serum osmolality, normal urine osmolality, random urine sodium 28. Fluids given in ER, sodium repleted. Hypertonic saline deferred. - Sodium repleted 01/22/24. (3) Confusion: Suspect due to acute diarrheal illness, +/- mild hyponatremia. Treatment as noted above (4) Restrictive cardiomyopathy: Restrictive cardiomyopathy No prior history of heart failure No chest pain/chest pressure Metoprolol continued Aspirin continued Plan CODE STATUS: DNR/DNI Discharge Exam General: No acute distress, nondiaphoretic, well-developed, well-nourished. Skin: The skin was without rashes, erythema, edema, or bruising. Cardiac: Regular rate and rhythm without murmurs gallops or rubs. Pulm: Clear to auscultation bilaterally without wheezes, rales or rhonchi. No retractions or accessory muscle use. Abdominal: Positive bowel sounds x 4. Soft, nontender, nondistended, without masses or organomegaly. No guarding or rebound tenderness. Neuro: A&O x3. No focal neurological deficits. Updated Medication List Medication Instructions Recorded Confirmed Type albuterol sulfate 2.5 mg/3 mL 2.5 mg continuous nebulization Q6 11/19/22 01/21/24 History (0.083 %) solution for nebulization PRN Shortness Of Breath aspirin 81 mg tablet,delayed 81 mg PO DAILY 11/19/22 01/21/24 History release ergocalciferol (vitamin D2) 1,250 1,250 mcg PO WK 11/19/22 01/21/24 History mcg (50,000 unit) capsule metoprolol succinate 25 mg 0 mg PO DAILY 11/19/22 01/21/24 History tablet,extended release 24 hr nitroglycerin 0.4 mg sublingual 0.4 mg sublingual UD PRN Chest Pain 11/19/22 01/21/24 History tablet omeprazole 40 mg capsule,delayed 40 mg PO DAILY PRN 11/19/22 01/21/24 History release HEARTBURN/INDIGESTION potassium chloride 20 mEq 20 meq PO DAILY PRN if taking 11/19/22 01/21/24 History tablet,extended release(part/cryst) torsemide temazepam 30 mg capsule 30 mg PO HS PRN Sleep 11/19/22 01/21/24 History torsemide 20 mg tablet 20 mg PO DAILY PRN Fluid Retention 11/19/22 01/21/24 History dextromethorphan-guaifenesin 10 10 ml PO Q4H PRN Cough 01/21/24 01/21/24 History mg-100 mg/5 mL oral syrup isosorbide mononitrate 30 mg 30 mg PO DAILY 01/21/24 01/21/24 History tablet,extended release 24 hr linaclotide 290 mcg capsule 290 mcg PO DAILYBB 01/21/24 01/21/24 History (Linzess) lovastatin 40 mg tablet 40 mg PO DAILY 01/21/24 01/21/24 History montelukast 10 mg tablet 10 mg PO DAILY PRN Congestion 01/21/24 01/21/24 History (Singulair) sertraline 50 mg tablet 25 mg PO BID 01/21/24 01/21/24 History cephalexin 500 mg capsule 500 mg PO QID 5 days #20 caps 01/23/24 Rx metronidazole 500 mg tablet 500 mg PO TID 5 days #15 tabs 05/24/24 Rx Hospital Stay Data Consultations 01/21/24 16:59 ED Decision to Admit Stat Diagnostic Imagining Performed 01/21/24 14:47 CT abd pelvis IV con only Stat CT head/brain wo con Stat Pending Results Patient Have Any Pending Studies at Discharge: Yes Discharge Instructions Given to Patient (Per Discharging Provider) Mrs. Germain, Derrell were admitted to the hospital because of diverticulitis and hyponatremia (low sodium level). This is what caused your symptoms of nausea, vomiting, diarrhea, weakness, and confusion. Your sodium level has returned to normal. You have received antibiotics while in the hospital for the diverticulitis. Diverticulitis is a condition where the small outpouches in your colon (large intestine) become inflamed/infected. You were transitioned from a clear liquid diet, to a full liquid diet, to a low fiber dietall which has been well- tolerated. You will continue with oral antibiotics for 5 days upon discharge. The prescriptions for your antibiotics have been sent to the [facility] pharmacy in [place]. Upon discharge from the hospital: * Please take Keflex (oral antibiotic) 4 times daily x 5 days. * Please take Flagyl (oral antibiotic) 3 times daily x 5 days. Both of these antibiotics are to treat the diverticulitis. * I recommend continuing a low fiber diet for 1 week to give your bowel a chance to rest so that it can recover. -Low fiber foods include cereal, mashed potatoes, pancakes, waffles, pasta, white bread, rice, applesauce, bananas, eggs, fish, poultry, tofu, and well-cooked vegetables. * I recommend taking a probiotic to maintain a healthy gut biome while on the antibiotics. This can either be an [id number] (OTC) probiotic, or a cup of yogurt or ice cream daily while on the antibiotics. * Continue taking your other medications as prescribed. * Follow-up with your PCP in 1-2 weeks. * [facility] are scheduled to come on 01/27/2024. To prevent recurrence of diverticulitis in the future: Eat a high-fiber diet. Fiber adds bulk to the stool so that it passes through the large intestine more easily. Drink plenty of fluids. Stay active as tolerated, including simple act ivities such as walking. Please return to the hospital if you experience any of the following: Fever of 100.4 F or higher, chills, severe cramps/soreness in your stomach (most often on the lower left side), severe nausea and vomiting, bleeding from your rectum, dizziness, lightheadedness, fainting, shortness of breath, difficulty breathing, or chest pain. It was a pleasure taking care of you while you were in the hospital, Madeline Wheat PA-C Total Time Total Time Spent Total Time Spent (In Minutes): Greater than 30 minutes spent completing this discharge process including direct patient care, medication reconciliation, documentation, review of labs and images, and coordination of care. Coding Level of Care Code 88121 INP/OBS DISCH >30 MIN Diagnoses Diverticulitis K57.92 Hyponatremia E87.1 Confusion R41.0 Restrictive cardiomyopathy I42.5
== END 2024-01-23 14:17 | disposition home health service (06) ==
LOC: EDINP 11:43 → ED 11:43 → SUATTDRO 17:14 → 3N 17:53

== ENCOUNTER 2024-04-02 00:09 | Inpatient (IN) ==
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
[2024-04-02] MEDS: ONDANSETRON INJ 2 MG/ML 2 ML VIAL IV STA (01:04)
[2024-04-02] MEDS: SODIUM CHLORIDE 0.9% 500 ML IV ONE (01:04)
[2024-04-02 01:35] LABS: Basophils # (auto) 0.02 K/uL (0.00-0.20); Basophils % (auto) 0.2 %; Eosinophils # (auto) 0.09 K/uL (0.00-0.50); Eosinophils % (auto) 1.1 %; Hematocrit (blood only) 35.4 % (37.0-47.0); Hemoglobin 11.9 g/dl (12.0-16.0); Immature Granulocytes # (auto) 0.01 K/uL (0.01-0.20); Immature Granulocytes % (auto) 0.1 %; Lymphocytes # (auto) 0.88 K/uL (1.20-3.40); Lymphocytes % (auto) 10.3 %; Mean Corpuscular Hemoglobin 28.8 pg (25.0-34.0); Mean Corpuscular Hgb Conc 33.6 g/dL (32.0-36.0); Mean Corpuscular Volume 85.7 fL (80.0-100.0); Mean Platelet Volume 9.5 fL (9.4-12.4); Monocytes # (auto) 0.57 K/uL (0.11-0.59); Monocytes % (auto) 6.7 %; Neutrophils # (auto) 6.95 K/uL (1.40-6.50); Neutrophils % (auto) 81.6 %; Platelet Count 253 K/uL (130-400); RDW Coefficient of Variation 12.6 % (11.5-14.5); RDW Standard Deviation 39.2 fL (36.4-46.3); Red Blood Count 4.13 M/uL (4.20-5.40); White Blood Count 8.52 K/ul (4.8-10.8)
[2024-04-02 01:51] LABS: Albumin Globulin Ratio 1.6 (0.9-2); Albumin Level 4.2 gm/dl (3.4-5.0); BUN Creatinine Ratio 13.6 (10-20); Bilirubin,Total 0.5 mg/dl (0.2-1.0); Calcium 8.6 mg/dl (8.6-10.3); Creatinine Clr Calc Pharmacy 46.4 ml/min; Est GFR (African American) 94.2 ml/min; Est GFR (Non-African American) 81.3 ml/min; Globulin 2.6 gm/dl (2.5-4.0); Potassium 3.6 mmol/L (3.5-5.1); Total Protein 6.8 gm/dl (6.0-8.3)
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
[2024-04-02 03:02] LABS: Appearance Urine Clear (Clear); Bacteria Urine Automated None Seen (None Seen); Bilirubin Urine Negative (Negative); Blood Urine 2+ (Negative); Cast Urine Automated 0-2 /lpf (0-2); Color Urine Yellow; Epithelial Cell Urine Auto 0-2 /hpf (0-2); Glucose Urine UA Negative (Negative); Ketones Urine 1+ (Negative); Leukocyte Esterase Urine Negative (Negative); Nitrite Urine Negative (Negative); Protein Urine Negative (Negative); RBC Urine Automated >20 /hpf (0-2); Specific Gravity Urine 1.007 (1.000-1.030); Urobilinogen Urine Negative (Negative); WBC Urine Automated 0-5 /hpf (0-5)
[2024-04-02] MEDS: PROCHLORPERAZINE 1 ML IV ONE (03:54)
[2024-04-02] MEDS: cefTRIAXone SODIUM 1,000 MG/50 ML BAG IV STA (03:54)
[2024-04-02] MEDS ORDERED: ONDANSETRON INJ 2 MG/ML 2 ML VIAL IV PRN (04:27)
[2024-04-02] MEDS ORDERED: ALBUTEROL 0.083% NEBU SOLN 3 ML VIAL INH PRN (04:27)
[2024-04-02] MEDS ORDERED: traMADol HCL 50 MG TABLET PO PRN (04:27)
[2024-04-02] MEDS: PLASMA-LYTE A 1,000 ML IV SCH (05:09)
[2024-04-02 06:34] LABS: BUN Creatinine Ratio 13.2 (10-20); Calcium 8.2 mg/dl (8.6-10.3); Creatinine Clr Calc Pharmacy 51.7 ml/min; Est GFR (African American) 97.6 ml/min; Est GFR (Non-African American) 84.2 ml/min; Magnesium 1.9 mg/dl (1.7-2.4); Phosphorus 2.2 mg/dl (2.5-4.9); Potassium 4.2 mmol/L (3.5-5.1)
[2024-04-02] MEDS: PANTOprazole 40 MG TAB PO SCH (08:15)
[2024-04-02] MEDS: ASPIRIN 81 MG ECTAB PO SCH (08:15)
[2024-04-02] MEDS: SERTRALINE HCL 50 MG TABLET PO SCH (08:16)
[2024-04-02] MEDS: METOPROLOL SUCC 25MG EXT REL TAB PO SCH (08:16)
[2024-04-02] MEDS: LOVASTATIN 20 MG TAB PO SCH (08:17)
[2024-04-02] MEDS: metroNIDAZOLE 500 MG TAB PO SCH (09:15)
--- NOTE | 2024-04-02 09:34 | Nephrology Consultation ---
Date of Consultation April 02, 2024 Assessment & Plan (1) Hyponatremia: Hypovolemic hyponatremia associated with poor nutrition/solute intake. Aymptomatic. Electrolytes are otherwise normal. Volume status improving. Tolerating IV fluids. Prospective monitoring will be provided. Rate of correction has been acceptable. As long as sodium continues to improve at an acceptable rate, there are no additional recommendations from nephrology. I will follow peripherally, please call with questions or concerns. Outpatient follow up can be arranged with me in the [facility] nephrology clinic at discharge. Consider screening thyroid testing. (2) Hypertension: Volume status improving. Tolerating current therapy well. BP reasonably controlled. History of Present Illness Reason for Consultation: Hyponatremia Requesting Physician: Glenn Rowe DO Attending Physician: Glenn Rowe DO History of Present Illness Kat Germain is a 88 year-old female with IBS-C on Linzess, hypertension, and hyperlipidemia who presented to the ER overnight with nausea and vomiting. Kat presented to the ER on 03/28 with complaint of back pain x 4 days as well as LLQ abdominal pain. CT scan revealed acute sacral insufficiency fractures, chronic T12 and L1 compression deformities, and colonic diverticulosis with findings suggestive of acute diverticulitis. She was started on ciprofloxacin and Flagyl. She returned to the ER with persistent nausea, non-bloody/non-bilious emesis, and anorexia. She denies fevers or chills or abdominal pain. Serum sodium on March 28 was 136 mmol/L. Sodium on presentation to the hospital was 124 mmol/L. Sodium this AM 129 mmol/L. Potassium 4.2 mmol/L. Creatinine 0.5 mg/dL. IVF have been infusing. Kat was found to be volume depleted on presentation. She was admitted to [facility] in December with hyponatremia attributed to dehydration and poor solute intake. Serum sodium improved with isotonic fluids during the admission. Kat was resting comfortably in bed this morning without complaints. She denies fluid retention or edema. Appetite is improving. Allergies Allergy/AdvReac Type Severity Reaction Status Date / Time Penicillins Allergy Severe THROAT Verified 03/28/24 12:43 SWELLS/HIVES Sulfa (Sulfonamide Allergy Severe SWELLING/HI Verified 03/28/24 12:43 Antibiotics) VES Home Medications Medication Instructions Recorded Confirmed Type albuterol sulfate 2.5 mg/3 mL 2.5 mg continuous nebulization Q6 11/19/22 03/28/24 History (0.083 %) solution for nebulization PRN Shortness Of Breath aspirin 81 mg tablet,delayed 81 mg PO DAILY 11/19/22 03/28/24 History release ergocalciferol (vitamin D2) 1,250 1,250 mcg PO WK 11/19/22 03/28/24 History mcg (50,000 unit) capsule nitroglycerin 0.4 mg sublingual 0.4 mg sublingual UD PRN Chest Pain 11/19/22 03/28/24 History tablet omeprazole 40 mg capsule,delayed 40 mg PO DAILY PRN 11/19/22 03/28/24 History release HEARTBURN/INDIGESTION potassium chloride 20 mEq 20 meq PO DAILY PRN if taking 11/19/22 03/28/24 History tablet,extended release(part/cryst) torsemide temazepam 30 mg capsule 30 mg PO HS Sleep 11/19/22 03/28/24 History torsemide 20 mg tablet 20 mg PO DAILY PRN Fluid Retention 11/19/22 03/28/24 History linaclotide 290 mcg capsule 290 mcg PO DAILYBB 01/21/24 03/28/24 History (Linzess) lovastatin 40 mg tablet 40 mg PO DAILY 01/21/24 03/28/24 History montelukast 10 mg tablet 10 mg PO DAILY PRN Congestion 01/21/24 03/28/24 History (Singulair) sertraline 50 mg tablet 25 mg PO BID 01/21/24 03/28/24 History isosorbide mononitrate 120 mg 60 mg PO BID 02/04/24 03/28/24 History tablet,extended release 24 hr metoprolol succinate 25 mg 12.5 mg PO BID 02/04/24 03/28/24 History tablet,extended release 24 hr ciprofloxacin HCl 500 mg tablet 500 mg PO BID #19 tabs 03/28/24 Rx (Cipro) metronidazole 500 mg tablet 500 mg PO TID 10 days #29 tabs 03/28/24 Rx tramadol 50 mg tablet 50 mg PO Q6H PRN pain #14 tabs 03/28/24 Rx Patient History Medical History (Updated 04/02/24 @ 11:11 by Glenn Rowe DO) Anxiety Confusion Dehydration Irritable bowel disease Surgical History History of hip surgery 11/19/22: ([facility]) R long TFN or IT fx History of right shoulder replacement Family History Other No significant family history Social History Smoking Status: Never smoker Second Hand Exposure: No; Do You Dip or Chew Tobacco: No; Hx Alcohol Use: No Hx Substance Use: No Preferred Language: Tongan Communication Ability: Effective Mixer Driver Required: No Beliefs That Will Affect Care: None Current Living Situation: Alone Current Living Situation Comment: lives in 1 story condo, no steps Feels Safe at Home: Yes Assistive Devices: Walker Review of Systems Review of Systems: All systems reviewed & are unremarkable except as noted in HPI & below Physical Exam Constitutional: well developed; no acute distress Eyes: no scleral abnormality and no corneal abnormality ENMT: Mouth: no oral mucosal abnormality and oral mucous membranes not dry Neck: normal visual inspection and trachea midline Respiratory: normal respiratory effort Auscultation: lungs clear to auscultation bilaterally Cardiovascular: Rate/Rhythm: regular rate Heart Sounds: normal S1 and normal S2 Extremities: no edema Musculoskeletal: Extremities: no cyanosis and no clubbing Skin: normal turgor; no lesions Neurologic: Motor/Sensory: no tremor and no asterixis Psychiatric: Orientation: alert and oriented x 3 Results & Data Vital Signs (Past 12 Hours) Vital Signs Temp Pulse Pulse Resp BP BP Pulse Ox 04/02/24 07:57 36.3 C L 68 18 108/45 L 96 04/02/24 07:12 64 04/02/24 04:25 74 04/02/24 04:08 36.7 C 69 16 110/53 L 94 04/02/24 03:30 75 04/02/24 01:16 74 18 122/68 98 04/02/24 00:13 36.8 C 86 18 153/93 H 98 O2 Del Method 04/02/24 07:57 Room Air 04/02/24 07:12 04/02/24 04:25 04/02/24 04:08 Room Air 04/02/24 03:30 04/02/24 01:16 Room Air 04/02/24 00:13 Room Air Laboratory Results Laboratory Results - last 24 hr 04/02/24 04/02/24 04/02/24 01:09 02:35 05:41 WBC 8.52 RBC 4.13 L Hgb 11.9 L Hct 35.4 L MCV 85.7 MCH 28.8 MCHC 33.6 RDW Std Deviation 39.2 RDW Coeff of Leonardo 12.6 Plt Count 253 MPV 9.5 Immature Gran % (Auto) 0.1 Neut % (Auto) 81.6 Lymph % (Auto) 10.3 Park % (Auto) 6.7 Eos % (Auto) 1.1 Baso % (Auto) 0.2 Neut # (Auto) 6.95 H Lymph # (Auto) 0.88 L Park # (Auto) 0.57 Eos # (Auto) 0.09 Baso # (Auto) 0.02 Immature Gran # (Auto) 0.01 Sodium 124 L 129 L Potassium 3.6 4.2 Chloride 91 L 98 Carbon Dioxide 25 25 Anion Gap 8 6 BUN 8 7 Creatinine 0.59 L 0.53 L Est Cr Clr Drug Dosing 46.4 51.7 Est GFR ( Amer) 94.2 97.6 Est GFR (Non-Af Amer) 81.3 84.2 BUN/Creatinine Ratio 13.6 13.2 Glucose 123 H 115 H Osmolality 266 L Calcium 8.6 8.2 L Phosphorus 2.2 L Magnesium 1.9 Total Bilirubin 0.5 AST 27 ALT 13 Alkaline Phosphatase 96 Total Protein 6.8 Albumin 4.2 Globulin 2.6 Albumin/Globulin Ratio 1.6 Lipase 25 Urine Color Yellow Urine Appearance Clear Urine pH 7.0 Ur Specific [place] 1.007 Urine Protein Negative Urine Glucose (UA) Negative Urine Ketones 1+ H Urine Blood 2+ H Urine Nitrite Negative Urine Bilirubin Negative Urine Urobilinogen Negative Ur Leukocyte Esterase Negative Urine WBC (Auto) 0-5 Urine RBC (Auto) >20 H U Hyaline Cast (Auto) 0-2 U Epithel Cells (Auto) 0-2 Urine Bacteria (Auto) None Seen PG Care Time/CCT Total # of Minutes Spent Total Time Spent with Patient: Total time spent is greater than 50% in coordination of care (as documented) at patient's floor/unit and/or counseling patient: Coding Level of Care Code 73139 IN/OBS CONSULT LVL 4,60M Diagnoses Hyponatremia E87.1 Hypertension I10
--- NOTE | 2024-04-02 11:13 | Hospitalist Progress Note ---
Date of Service April 02, 2024 Assessment & Plan (1) Hyponatremia: Plan: 88yo female presenting with 1 day of nausea, vomiting as well as diarrhea and PO intolerance. She has generalized weakness, found to be hyponatremic with Lw=039 (down from 136 on 03/28/24). Most likely secondary to volume depletion. -Na likely 2/2 to volume depletion -Urine studies ordered; Follow up urine Na -On Volume resuscitation with IV hydration for now: Plasmalyte 100mL/hr x 2L or dered- given increase in Na may consider discontinuation as to not overcorrect. Will discuss with nephrology. Monitor labs -Nephro consulted; Recommendations appreciated -Hold Torsemide -PT/OT evaluation appreciated for generalized weakness (2) Diverticulitis: Plan: Nausea and vomiting most likely secondary to Cipro/Flagyl. Patient has taken these medications in the past and has become sick with nausea. Unfortunately she has a true allergy to PCN as well as Sulfa antibiotics. She has taken Ceftriaxone in the past without difficulty. -Ceftriaxone 1gm IV daily -Scheduled to complete 7 days of abx on 04/03 (3) Closed pelvic fracture: Plan: Sacral insufficiency fracture. Patient reports pain is well controlled. She is able to ambulate. Denies pain at present during evaluation. -Tylenol PRN -Tramadol PRN -Upon Dc will give information on outpatient ortho for follow up. (4) CAD (coronary artery disease): Plan: CAD - chronic, patient denies chest pain. -Continue ASA 81mg po daily -Continue metoprolol 12.5mg po BID -Continue Lovastatin -Hold Isosorbide for now (5) Anxiety: Plan: -chronic -Continue Sertraline -Continue Temazepam qHS Plan Other Medical Conditions: Hypophos: -Replete Po this AM -Continue to monitor IBS - chronic -Hold Linzess GERD - chronic -Protonix 40mg po daily while admitted DVT ppx: -Heparin Son updated bedside Admission and Anticipated Discharge Date Admission Date: April 02, 2024 Subjective Patient seen and evaluated bedside Patient's son is bedside during evaluation Patient reports feeling significant improvement from presentation She denies any further episodes of nausea or emesis Diarrhea is improved as well- patient reports last episode was prior to admission Na improving with volume repletion Review of Systems Review of Systems: Negative unless otherwise indicated in HPI Physical Exam Physical Exam: General: patient resting comfortably, NAD, non-toxic in appearance, AA&O x 4 Skin: warm, dry, intact, no rashes or lesions HEENT: NC/AT, PERRL, EOMI, anicteric sclera, conjunctiva without injection, external ear normal to inspection and nontender, nares patent, moist mucus membranes, neck supple, trachea midline Heart: +S1/S2, regular, no m/r/g Lungs: equal air entry bilaterally, no rales/rhonchi/wheezes Abd: +BS, soft, NT/ND, no masses/organomegaly/ascites Ext: warm, 2+ pulses in UE/LE bilaterally, no clubbing/cyanosis or edema Neuro: nonfocal, patient AA&O x 4, speech intact, moving all extremities on command with equal strength 5/5 Results & Data Results & Data Vital Signs (Past 12 Hours) Vital Signs Temp Pulse Pulse Resp BP BP Pulse Ox 04/02/24 07:57 36.3 C L 68 18 108/45 L 96 04/02/24 07:12 64 04/02/24 04:25 74 04/02/24 04:08 36.7 C 69 16 110/53 L 94 04/02/24 03:30 75 04/02/24 01:16 74 18 122/68 98 04/02/24 00:13 36.8 C 86 18 153/93 H 98 O2 Del Method 04/02/24 07:57 Room Air 04/02/24 07:12 04/02/24 04:25 04/02/24 04:08 Room Air 04/02/24 03:30 04/02/24 01:16 Room Air 04/02/24 00:13 Room Air PG Care Time/CCT Total # of Minutes Spent Total Time Spent with Patient: Total time spent is greater than 50% in coordination of care (as documented) at patient's floor/unit and/or counseling patient: additionally consulting with nephrology, repleting labs, managing electrolyte derangements Coding Level of Care Code 70035 SUB INP/OBS CARE 235MIN Diagnoses Hyponatremia E87.1 Diverticulitis K57.92 Closed pelvic fracture S32.9XXA CAD (coronary artery disease) I25.10 Anxiety F41.9
[2024-04-02] MEDS: POT PHOSPHATE MONOBASIC W/ SOD TAB PO ONE (11:21)
[2024-04-02] MEDS: SODIUM CHLORIDE 0.9% 1,000 ML IV SCH (17:18)
[2024-04-02] MEDS: TEMAZEPAM 15 MG CAPSULE PO SCH (21:35)
[2024-04-03] MEDS: cefTRIAXone SODIUM 1,000 MG/50 ML BAG IV SCH (03:57)
[2024-04-03 06:36] LABS: BUN Creatinine Ratio 10.2 (10-20); Calcium 8.3 mg/dl (8.6-10.3); Creatinine Clr Calc Pharmacy 55.9 ml/min; Est GFR (African American) 100.1 ml/min; Est GFR (Non-African American) 86.4 ml/min; Phosphorus 1.8 mg/dl (2.5-4.9); Potassium 3.5 mmol/L (3.5-5.1)
[2024-04-03] MEDS: ACETAMINOPHEN 325 MG TAB PO PRN (08:09)
[2024-04-03] MEDS: POT PHOSPHATE MONOBASIC W/ SOD TAB PO SCH (09:28)
[2024-04-03] MEDS ORDERED: SODIUM PHOSPHATE 3 MMOL/1 ML INFUSION IV ONE (10:26)
[2024-04-03] MEDS: SODIUM PHOSPHATE 9 MMOL in SODIUM CHLORIDE 0.9% 250 ML IV ONE (11:12)
--- NOTE | 2024-04-03 11:13 | Hospitalist Progress Note ---
Date of Service April 03, 2024 Assessment & Plan (1) Hyponatremia: Plan: 88yo female presenting with 1 day of nausea, vomiting as well as diarrhea and PO intolerance. She has generalized weakness, found to be hyponatremic with Da=594 (down from 136 on 03/28/24). Most likely secondary to volume depletion. -Na likely 2/2 to volume depletion -Urine studies reviewed -Na improved with volume repletion -Na: 135 this AM -Nephro consulted; Recommendations appreciated -Hold Torsemide -PT/OT evaluation appreciated for generalized weakness continue home health services (2) Diverticulitis: Plan: Nausea and vomiting most likely secondary to Cipro/Flagyl. Patient has taken these medications in the past and has become sick with nausea. Unfortunately she has a true allergy to PCN as well as Sulfa antibiotics. She has taken Ceftriaxone in the past without difficulty. -Ceftriaxone 1gm IV daily also tolerating flagyl -Intolerance appears more to Cipro -Plan to continue Ceftriaxone and Flagyl while inpatient and if needed will DC on po Vantin and Flagyl to complete course -Abdominal pain much improved- nearly resolved during evaluation (3) Closed pelvic fracture: Plan: Sacral insufficiency fracture. Patient reports pain is well controlled. She is able to ambulate. Denies pain at present during evaluation. -Tylenol PRN -Tramadol PRN -Upon Dc will give information on outpatient ortho for follow up. (4) CAD (coronary artery disease): Plan: CAD - chronic, patient denies chest pain. -Continue ASA 81mg po daily -Continue metoprolol 12.5mg po BID -Continue Lovastatin -Hold Isosorbide for now (5) Anxiety: Plan: -chronic -Continue Sertraline -Continue Temazepam qHS Plan Other Medical Conditions: Hypophos: -Continue to replete -Giving IV and po supplement this AM -Follow up repeat in the AM -Continue to monitor IBS - chronic -Hold Linzess GERD - chronic -Protonix 40mg po daily while admitted DVT ppx: -Heparin Updated son bedside Admission and Anticipated Discharge Date Admission Date: April 02, 2024 Subjective Patient seen and evaluated bedside Patient is currently in NAD Patient overnight had episode of confusion- described as sundowning type symptoms Now back to baseline- alert and oriented. Able to state date, year, location, President of the [facility] Son bedside able to confirm improving Abdominal pain continues to improve- nearly resolved at present. No further episodes of nausea or emesis Discussed at length with son and patient- given confusion earlier will watch and likely plan for DC in the AM if continues to improve Na improved to 135 Review of Systems Review of Systems: Negative unless otherwise indicated in HPI Physical Exam Physical Exam: General: patient resting comfortably, NAD, non-toxic in appearance, AA&O x 4 Skin: warm, dry, intact, no rashes or lesions HEENT: NC/AT, PERRL, EOMI, anicteric sclera, conjunctiva without injection, external ear normal to inspection, moist mucus membranes Heart: +S1/S2, regular, no m/r/g Lungs: equal air entry bilaterally, no rales/rhonchi/wheezes Abd: +BS, soft, NT/ND, no masses/organomegaly/ascites Ext: warm, 2+ pulses in UE/LE bilaterally, no clubbing/cyanosis or edema Neuro: nonfocal, patient AA&O x 4, speech intact, moving all extremities on command Results & Data Results & Data Vital Signs (Past 12 Hours) Vital Signs Temp Pulse Pulse Resp BP Pulse Ox O2 Del Method 04/03/24 07:45 36.6 C 62 16 125/67 98 Room Air 04/03/24 07:14 64 04/03/24 02:50 36.4 C L 60 16 114/68 99 Room Air 04/02/24 23:18 60 106/56 L PG Care Time/CCT Total # of Minutes Spent Total Time Spent with Patient: Total time spent is greater than 50% in coordination of care (as documented) at patient's floor/unit and/or counseling patient: Coding Level of Care Code 83412 SUB INP/OBS CARE 2/35MIN Diagnoses Hyponatremia E87.1 Diverticulitis K57.92 Closed pelvic fracture S32.9XXA CAD (coronary artery disease) I25.10 Anxiety F41.9
[2024-04-03] MEDS: HEPARIN SOD 5,000 UNIT/0.5 ML VIAL SQ SCH (15:06)
[2024-04-03] MEDS: MELATONIN 3 MG TAB PO PRN (20:14)
[2024-04-04] MEDS: POT PHOSPHATE MONOBASIC W/ SOD TAB PO SCH (09:35)
--- NOTE | 2024-04-04 09:58 | Discharge Summary ---
Discharge Summary Date of Service April 04, 2024 Principal Dx & Hospital Course #1 = Principal Diagnosis (1) Hyponatremia: 88yo female presenting with 1 day of nausea, vomiting as well as diarrhea and PO intolerance. She has generalized weakness, found to be hyponatremic with Lv=010 (down from 136 on 03/28/24). Most likely secondary to volume depletion. -Na likely 2/2 to volume depletion -Urine studies reviewed during hospitalization -Na improved with volume repletion -Na: 135 post repletion -Nephro consulted; Recommendations appreciated during hospitalization. Conservative measures. Proper po intake. -PT/OT evaluation: return to home services (2) Diverticulitis: Nausea and vomiting most likely secondary to Cipro/Flagyl. Patient has taken these medications in the past and has become sick with nausea. Unfortunately she has a true allergy to PCN as well as Sulfa antibiotics. She has taken Ceftriaxone in the past without difficulty. -Inpatient was covered on Ceftriaxone 1gm IV daily also tolerated flagyl -Abdominal symptoms completely resolved on this regimen -Patient was instructed to follow up with GI as an outpatient for routine monitoring (3) Closed pelvic fracture: Sacral insufficiency fracture. Patient reports pain is well controlled. She is able to ambulate. Denies pain at present during evaluation. -Tylenol PRN -Outpatient ortho follow up (4) CAD (coronary artery disease): CAD - chronic, patient denies chest pain. -Continued ASA 81mg po daily -Continued metoprolol 12.5mg po BID -Continued Lovastatin (5) Anxiety: -Continued Sertraline -Continued Temazepam qHS Plan Other Medical Conditions: Hypophos: -Repleted IV and po while inpatient -Patient requires repeat monitoring with PCP -Continue to monitor IBS - chronic -Held Linzess inpatient GERD - chronic -PPI DVT ppx: -Heparin Son was updated bedside during hospitalization Notes For Next Care Provider Patient presented due to nausea and vomiting from abx ciprofloxacin. Patient had electrolyte derangements 2/2 to emesis. These improved with IV hydration. Patient's symptoms improved when antibiotics were switched to Rocephin/Flagyl. No further intolerance noted. Completed over 8 days of total abx for diverticulitis including the prior to admission abx coverage. Na improved to 135 prior to discharge. Patient to follow up and repeat labs as an outpatient. Medication Changes From Visit May stop Ciprofloxacin as did not tolerate due to nausea and emesis. Completing treatment for Diverticulitis while inpatient. Admission HPI Per Admitting Provider Kat Germain is a pleasant 88yo female with history of IBS-C on Linzess, CAD, HTN and HLP presenting with nausea and vomiting. Patient recently presented to the ER on 03/28 with complaint of back pain x 4 days as well as LLQ abdominal pain. She had a CT scan which revealed acute sacral insufficiency fractures, chronic T12 and L1 compression deformities as well as colonic diverticulosis with findings suggestive of acute diverticulitis. Patient was started on Ciprofloxacin and Flagyl x 10 day course and Tramadol as needed for pain. Patient has been taking the antibiotics as directed but has not been taking the Tramadol. Over the last 24 hours she has had persistent nausea, 6-7 episodes of non-bloody/non-bilious emesis and po intolerance. Also complaining of generalized weakness. She had an episode of diarrhea today as well. She denies fever, chills, chest pain, cough, SOB, urinary complaints. No confusion or dizziness. In the ER she is afebrile, HD stable ER Course: Zofran 4mg IV NSS x 500mL Discharge Exam General: patient resting comfortably, NAD, non-toxic in appearance Skin: warm, dry, intact, no rashes or lesions HEENT: NC/AT, PERRL, EOMI, anicteric sclera, conjunctiva without injection, external ear normal to inspection, moist mucus membranes Heart: +S1/S2, regular, no m/r/g Lungs: equal air entry bilaterally, no rales/rhonchi/wheezes Abd: +BS, soft, NT/ND, no masses/organomegaly/ascites Ext: warm, 2+ pulses in UE/LE bilaterally, no clubbing/cyanosis or edema Neuro: nonfocal, speech intact, moving all extremities on command Updated Medication List Medication Instructions Recorded Confirmed Type albuterol sulfate 2.5 mg/3 mL 2.5 mg continuous nebulization Q6 11/19/22 03/28/24 History (0.083 %) solution for nebulization PRN Shortness Of Breath aspirin 81 mg tablet,delayed 81 mg PO DAILY 11/19/22 03/28/24 History release ergocalciferol (vitamin D2) 1,250 1,250 mcg PO WK 11/19/22 03/28/24 History mcg (50,000 unit) capsule nitroglycerin 0.4 mg sublingual 0.4 mg sublingual UD PRN Chest Pain 11/19/22 03/28/24 History tablet omeprazole 40 mg capsule,delayed 40 mg PO DAILY PRN 11/19/22 03/28/24 History release HEARTBURN/INDIGESTION potassium chloride 20 mEq 20 meq PO DAILY PRN if taking 11/19/22 03/28/24 History tablet,extended release(part/cryst) torsemide temazepam 30 mg capsule 30 mg PO HS Sleep 11/19/22 03/28/24 History torsemide 20 mg tablet 20 mg PO DAILY PRN Fluid Retention 11/19/22 03/28/24 History linaclotide 290 mcg capsule 290 mcg PO DAILYBB 01/21/24 03/28/24 History (Linzess) lovastatin 40 mg tablet 40 mg PO DAILY 01/21/24 03/28/24 History montelukast 10 mg tablet 10 mg PO DAILY PRN Congestion 01/21/24 03/28/24 History (Singulair) sertraline 50 mg tablet 25 mg PO BID 01/21/24 03/28/24 History isosorbide mononitrate 120 mg 60 mg PO BID 02/04/24 03/28/24 History tablet,extended release 24 hr metoprolol succinate 25 mg 12.5 mg PO BID 02/04/24 03/28/24 History tablet,extended release 24 hr metronidazole 500 mg tablet 500 mg PO TID 10 days #29 tabs 03/28/24 Rx tramadol 50 mg tablet 50 mg PO Q6H PRN pain #14 tabs 03/28/24 Rx Hospital Stay Data Consultations 04/02/24 02:33 ED Decision to Admit Stat 04/02/24 07:07 Consult Nephrology Routine Pending Results Patient Have Any Pending Studies at Discharge: No Discharge Instructions Given to Patient (Per Discharging Provider) Please follow up with all providers as discussed. Please return to the ER if nausea, vomiting or confusion return. Total Time Total Time Spent Total Time Spent (In Minutes): >45 minutes Coding Level of Care Code 52276 INP/OBS DISCH >30 MIN Diagnoses Hyponatremia E87.1 Diverticulitis K57.92 Closed pelvic fracture S32.9XXA CAD (coronary artery disease) I25.10 Anxiety F41.9
== END 2024-04-04 13:57 | disposition home health service (06) | DRG 392 ==
LOC: ED 00:09 → 2N 02:53 → SUATTDRO 02:53 → 2N 04:18

== ENCOUNTER 2024-08-14 18:22 | Inpatient (IN) ==
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
--- NOTE | 2024-08-14 19:22 | CT Scan Report ---
Exam(s): CT HEAD Without Contrast EXAM: CT Head Without Intravenous Contrast CLINICAL HISTORY: Reason for exam: fall. TECHNIQUE: Axial computed tomography images of the head/brain without intravenous contrast. CTDI is 37.51 mGy and DLP is 624.41 mGy-cm. Automated exposure control was utilized for the study. A dose lowering technique was utilized adhering to the principles of ALARA. COMPARISON: No relevant prior studies available. FINDINGS: Brain: Age-related parenchymal volume loss. Mild chronic small vessel ischemic change. Lynne-white matter differentiation maintained. No hemorrhage, mass effect, parenchymal edema, or midline shift. Ventricles: Unremarkable. No hydrocephalus. Bones/joints: Unremarkable. No acute fracture. Soft tissues: Unremarkable. Vasculature: Intracranial atherosclerosis. Sinuses: Unremarkable as visualized. Mastoid air cells: Unremarkable as visualized. No mastoid effusion. Orbits: Lens replacement. IMPRESSION: No acute intracranial process. Electronically signed by: Parris Montero M.D. 08/14/24 19:21 PM
--- NOTE | 2024-08-14 19:23 | CT Scan Report ---
Exam(s): CT C SPINE EXAM: CT Cervical Spine Without Intravenous Contrast CLINICAL HISTORY: Reason for exam: fall. TECHNIQUE: Axial computed tomography images of the cervical spine without intravenous contrast. CTDI is 20.17 mGy and DLP is 380.92 mGy-cm. Automated exposure control was utilized for the study. A dose lowering technique was utilized adhering to the principles of ALARA. COMPARISON: No relevant prior studies available. FINDINGS: Vertebrae: Osteopenia. No acute fracture or traumatic subluxation. Discs/spinal canal/neural foramina: Mild age-related degenerative changes predominantly involving the facet joints. No significant spinal canal stenosis. Soft tissues: Unremarkable. IMPRESSION: No acute findings in the cervical spine. Electronically signed by: Parris Montero M.D. 08/14/24 19:23 PM
--- NOTE | 2024-08-14 19:23 | CT Scan Report ---
Exam(s): CT FACIAL Without Contrast EXAM: CT Maxillofacial Without Intravenous Contrast CLINICAL HISTORY: Reason for exam: fall. TECHNIQUE: Axial computed tomography images of the face without intravenous contrast. CTDI is 20.17 mGy and DLP is 380.92 mGy-cm. Automated exposure control was utilized for the study. A dose lowering technique was utilized adhering to the principles of ALARA. COMPARISON: No relevant prior studies available. FINDINGS: Bones/joints: No acute fracture. Soft tissues: Soft tissue contusion over the left aspect of the chin. Orbits: Lens replacements. Sinuses: Single opacified left ethmoid air cell. Sinuses otherwise clear. IMPRESSION: Soft tissue contusion over the left aspect of the chin. No acute osseous findings. Electronically signed by: Parris Montero M.D. 08/14/24 19:22 PM
--- NOTE | 2024-08-14 19:24 | Emergency Department Note ---
ED Visit Note I was consulted by the Advanced Practice Provider, LILIANA Bhatia I personally made/approved the management plan and take responsibility for the patient management. I performed a substantive portion of the visit. This includes the aspects of: -History/Physical/Personally seeing the patient -MDM I reevaluated the patient after she was treated for pain. She has a previous right shoulder replacement. Her family is very concerned that she will not do well at home. The patient was not able to tolerate the sling. She also lives at home alone. Giving this the family is not comfortable with her going home at this time. I will discuss her condition with the [facility] hospitalist. EKG was obtained in the emergency department for preop clearance. My interpretation is normal sinus rhythm at 75 bpm. There was no PVCs noted. Nonspecific T wave abnormalities were noted. This was compared to a tracing from November 18, 2022. No changes were noted. .
--- NOTE | 2024-08-14 19:40 | XRay Report ---
Exam(s): XR LEFT SHOULDER, 2+ views EXAM: XR Left Shoulder Complete, 2 or More Views CLINICAL HISTORY: Reason for exam: fall. TECHNIQUE: Two or more views of the left shoulder. COMPARISON: No relevant prior studies available. FINDINGS: Bones/joints: Acute impacted nondisplaced fracture through the surgical neck of the humerus with possible involvement of the greater tuberosity as well. No dislocation. Degenerative change at the acromioclavicular joint. Osteopenia. Soft tissues: Unremarkable. IMPRESSION: Acute impacted nondisplaced fracture through the surgical neck of the humerus with possible involvement of the greater tuberosity as well. Electronically signed by: Parris Montero M.D. 08/14/24 19:39 PM
--- NOTE | 2024-08-14 20:18 | XRay Report ---
Exam(s): XR CXR 1 VIEW EXAM: XR Chest, 1 View CLINICAL HISTORY: Reason for exam: fall. TECHNIQUE: Frontal view of the chest. COMPARISON: 01/21/24 FINDINGS: Lungs: Unremarkable. No consolidation. Pleural space: Unremarkable. No pleural effusion or pneumothorax. Heart: Unremarkable. No cardiomegaly or pulmonary vascular congestion. Bones/joints: Acute proximal left humerus fracture. Reverse right shoulder arthroplasty. IMPRESSION: Acute proximal left humerus fracture. Clear lungs. Electronically signed by: Parris Montero M.D. 08/14/24 20:17 PM
[2024-08-14] MEDS: traMADol HCL 50 MG TABLET PO STA (20:34)
[2024-08-14] MEDS ORDERED: MoRPHine SULFATE 4 MG/ML 1 ML CARP\\VIAL IV PRN ×2 (20:40→22:05)
[2024-08-14 21:25] LABS: Basophils # (auto) 0.03 K/uL (0.00-0.20); Basophils % (auto) 0.2 %; Eosinophils # (auto) 0.07 K/uL (0.00-0.50); Eosinophils % (auto) 0.6 %; Hematocrit (blood only) 33.8 % (37.0-47.0); Hemoglobin 11.3 g/dl (12.0-16.0); Immature Granulocytes # (auto) 0.04 K/uL (0.01-0.20); Immature Granulocytes % (auto) 0.3 %; Lymphocytes # (auto) 1.14 K/uL (1.20-3.40); Lymphocytes % (auto) 9.3 %; Mean Corpuscular Hemoglobin 29.7 pg (25.0-34.0); Mean Corpuscular Hgb Conc 33.4 g/dL (32.0-36.0); Mean Corpuscular Volume 88.7 fL (80.0-100.0); Mean Platelet Volume 9.6 fL (9.4-12.4); Monocytes # (auto) 0.55 K/uL (0.11-0.59); Monocytes % (auto) 4.5 %; Neutrophils # (auto) 10.37 K/uL (1.40-6.50); Neutrophils % (auto) 85.1 %; Platelet Count 222 K/uL (130-400); RDW Coefficient of Variation 12.6 % (11.5-14.5); RDW Standard Deviation 40.6 fL (36.4-46.3); Red Blood Count 3.81 M/uL (4.20-5.40)
[2024-08-14 21:33] LABS: Alanine Aminotransferase 12 U/L (7-52); Albumin Globulin Ratio 1.6 (0.9-2); Albumin Level 4.1 gm/dl (3.4-5.0); Alkaline Phosphatase 44 U/L (34-104); Anion Gap 8 (3-11); Aspartate Aminotransferase 23 U/L (13-39); Bilirubin,Total 0.4 mg/dl (0.2-1.0); Blood Urea Nitrogen 22 mg/dl (6-23); Calcium 9.3 mg/dl (8.6-10.3); Carbon Dioxide 30 mmol/L (21-32); Chloride 99 mmol/L (98-107); Globulin 2.6 gm/dl (2.5-4.0); Glucose 115 mg/dl (70-99(Fasting)); Lipase 57 U/L (11-82); Potassium 3.2 mmol/L (3.5-5.1); Sodium 137 mmol/L (136-145); Total Protein 6.7 gm/dl (6.0-8.3)
[2024-08-14] MEDS: ONDANSETRON INJ 2 MG/ML 2 ML VIAL IV STA (21:44)
[2024-08-14] MEDS ORDERED: NALOXONE HCL 0.4 MG/1 ML VIAL/CARP IV PRN (22:06)
[2024-08-14] MEDS ORDERED: ALBUT/IPRATROP 3MG/0.5MG NEB 3 ML VIAL NEB PRN (22:06)
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
[2024-08-14] MEDS: MoRPHine SULFATE 2 MG/ML CARP IV PRN (22:43)
[2024-08-14] MEDS: NSS + 20MEQ KCL 20 MEQ/1,000 ML BAG IV STA (22:44)
[2024-08-15] MEDS ORDERED: ACETAMINOPHEN 1000 MG/100 ML IV IV PRN (00:05)
[2024-08-15] MEDS ORDERED: NITROGLYCERIN SL 0.4 MG/TAB TAB SL PRN (00:05)
[2024-08-15] MEDS: ONDANSETRON INJ 2 MG/ML 2 ML VIAL IV PRN (00:14)
[2024-08-15] MEDS: METOPROLOL SUCC 25MG EXT REL TAB PO SCH (00:15)
[2024-08-15] MEDS: ACETAMINOPHEN 1000 MG/100 ML IV IV ONE (00:20)
[2024-08-15] MEDS: SERTRALINE HCL 50 MG TABLET PO SCH (00:37)
[2024-08-15] MEDS: ACETAMINOPHEN 10MG/ML Custom 700 MG in EMPTY BAG 0 ML IV PRN (00:46)
[2024-08-15 07:24] LABS: Basophils # (auto) 0.03 K/uL (0.00-0.20); Basophils % (auto) 0.4 %; Eosinophils # (auto) 0.07 K/uL (0.00-0.50); Hematocrit (blood only) 27.4 % (37.0-47.0); Hemoglobin 9.2 g/dl (12.0-16.0); Immature Granulocytes # (auto) 0.02 K/uL (0.01-0.20); Immature Granulocytes % (auto) 0.3 %; Lymphocytes # (auto) 1.44 K/uL (1.20-3.40); Lymphocytes % (auto) 21.2 %; Mean Corpuscular Hemoglobin 29.8 pg (25.0-34.0); Mean Corpuscular Hgb Conc 33.6 g/dL (32.0-36.0); Mean Corpuscular Volume 88.7 fL (80.0-100.0); Mean Platelet Volume 9.9 fL (9.4-12.4); Monocytes # (auto) 0.56 K/uL (0.11-0.59); Monocytes % (auto) 8.2 %; Neutrophils # (auto) 4.68 K/uL (1.40-6.50); Neutrophils % (auto) 68.9 %; Platelet Count 178 K/uL (130-400); RDW Coefficient of Variation 12.8 % (11.5-14.5); RDW Standard Deviation 41.7 fL (36.4-46.3); Red Blood Count 3.09 M/uL (4.20-5.40)
[2024-08-15 07:43] LABS: Albumin Level 3.3 gm/dl (3.4-5.0); BUN Creatinine Ratio 25.9 (10-20); Calcium 8.7 mg/dl (8.6-10.3); Creatinine Clr Calc Pharmacy 47.2 ml/min; Phosphorus 3.6 mg/dl (2.5-4.9); Potassium 3.8 mmol/L (3.5-5.1)
[2024-08-15 08:10] LABS: Appearance Urine Clear (Clear); Bacteria Urine Automated None Seen (None Seen); Bilirubin Urine Negative (Negative); Blood Urine 1+ (Negative); Cast Urine Automated 0-2 /lpf (0-2); Color Urine Yellow; Epithelial Cell Urine Auto 0-2 /hpf (0-2); Glucose Urine UA Negative (Negative); Ketones Urine Negative (Negative); Leukocyte Esterase Urine Negative (Negative); Nitrite Urine Negative (Negative); Protein Urine Negative (Negative); Urobilinogen Urine Negative (Negative); WBC Urine Automated 0-5 /hpf (0-5); pH Urine 5.5 (4.5-7.5)
[2024-08-15] MEDS: ISOSORBIDE MONO EXTENDED REL 30 MG TABCR PO SCH (08:13)
[2024-08-15] MEDS: PANTOprazole 40 MG/10 ML SYR IV SCH (08:14)
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
[2024-08-15] MEDS ORDERED: oxyCODONE HCL IR 5 MG TAB (IMMEDIATE RELEASE) PO PRN (09:04)
[2024-08-15] MEDS: SODIUM CHLORIDE 0.9% 500 ML IV ONE (10:43)
[2024-08-15] MEDS: KETOROLAC TROMETHAMINE 15 MG/ML VIAL IV ONE (10:44)
[2024-08-15] MEDS: LINACLOTIDE 145 MCG CAPSULE PO SCH (12:18)
--- NOTE | 2024-08-15 12:36 | Hospitalist Progress Note ---
<Statement entered by Madeline Rosa MD - 08/15/24 16:55> I have reviewed vital signs, chart notes, labs and imaging. I have also discussed the management of the patient with the GABBY and I agree with the exam findings documented in the history and physical examination and the documented assessment and plan unless otherwise stated below. 500 mL IV saline bolus given late morning for hypotension, blood pressure improved thereafter. Toradol low-dose x 1 ordered for pain - Imdur and metoprolol held nonoperative management of humerus fracture, await PT and OT eval's Date of Service August 15, 2024 Assessment & Plan (1) Closed fracture of left proximal humerus: Plan: Closed fracture of proximal left humerus Possible involvement of greater tuberosity PO tylenol PRN for pain. Oxycodone 5mg 1 tab Q6 hours PRN for severe pain. Toradol x1 for pain now. Per Ortho: Recommend nonsurgical care. She should be nonweightbearing to the left upper extremity. She can carefully use her hand, and has tolerated to assist with ADLs. Sling for comfort for at least 6 weeks. She does not need to sleep with it if she is more comfortable position with pillows. Will see her back in clinic in 1 to 2 weeks for repeat x-rays. No further orthopedic needs for inpatient admission. Recommend PT/OT for disposition. (2) CAD (coronary artery disease): (3) Hypertension: Plan: Hold Imdur and Metoprolol due to low BPs. (4) Restrictive cardiomyopathy: (5) Esophagitis: Plan: Omeprazole/Pantoprozole (6) Chronic constipation: Plan: Continue home dose of Linzess. Plan COPD: Duonebs Q2 PRN Await PT/OT evaluation. Admission and Anticipated Discharge Date Admission Date: August 14, 2024 Reyes Stephens reports that she has pain in her L shoulder, but otherwise is feeling okay. Her BP is low this AM, denies dizziness or lightheadedness, reports that she may feel a little "woozy". Reports low BPs at home as well. Her metoprolol was held this AM. Will hold Imdur. 500 cc NSS bolus and toradol given for pain. Ortho saw patient and recommended non-surgical care - nonweightbearing to the L upper extremity. Sling for comfort x 6 weeks. Follow up at the ortho clinic in 1-2 weeks. PT/OT for disposition. Review of Systems Constitutional: no fever and no chills Respiratory: no cough and no dyspnea Cardiovascular: no chest pain, no palpitations, no syncope and no edema Gastrointestinal: no abdominal pain, no nausea and no vomiting Genitourinary: no dysuria, no difficulty urinating and no urinary frequency Musculoskeletal: + problem reported (L upper arm/shoulder pain. ) Neurologic: no dizziness, no headache(s) and no confusion Physical Exam Constitutional: WD/WN, vitals as above Respiratory: normal respiratory effort, lungs clear to auscultation Cardiovascular: RRR, no murmur, no edema Gastrointestinal (Abdomen): normal bowel sounds, soft, nontender, no hepatosplenomegaly Musculoskeletal: Shoulder: + limited ROM Psychiatric: Orientation: alert and oriented x 3 Results & Data Results & Data Vital Signs (Past 12 Hours) Vital Signs Temp Pulse Resp BP Pulse Ox O2 Del Method 08/15/24 10:30 36.6 C 76 16 77/37 L 96 Room Air 08/15/24 07:16 36.6 C 69 16 119/51 L 96 Room Air 08/15/24 06:21 96/55 L 08/15/24 04:15 90/50 L Laboratory Results 08/15/24 08/15/24 08/14/24 Range/Units 07:25 06:55 21:05 WBC 6.80 12.20 H (4.8-10.8) K/ul RBC 3.09 L 3.81 L (4.20-5.40) M/uL Hgb 9.2 L 11.3 L (12.0-16.0) g/dl Hct 27.4 L 33.8 L (37.0-47.0) % MCV 88.7 88.7 (80.0-100.0) fL MCH 29.8 29.7 (25.0-34.0) pg MCHC 33.6 33.4 (32.0-36.0) g/dL RDW Std Deviation 41.7 40.6 (36.4-46.3) fL RDW Coeff of Leonardo 12.8 12.6 (11.5-14.5) % Plt Count 178 222 (130-400) K/uL MPV 9.9 9.6 (9.4-12.4) fL Immature Gran % (Auto) 0.3 0.3 % Neut % (Auto) 68.9 85.1 % Lymph % (Auto) 21.2 9.3 % [place] % (Auto) 8.2 4.5 % Eos % (Auto) 1.0 0.6 % Baso % (Auto) 0.4 0.2 % Neut # (Auto) 4.68 10.37 H (1.40-6.50) K/uL Lymph # (Auto) 1.44 1.14 L (1.20-3.40) K/uL [place] # (Auto) 0.56 0.55 (0.11-0.59) K/uL Eos # (Auto) 0.07 0.07 (0.00-0.50) K/uL Baso # (Auto) 0.03 0.03 (0.00-0.20) K/uL Immature Gran # (Auto) 0.02 0.04 (0.01-0.20) K/uL Sodium 136 137 (136-145) mmol/L Potassium 3.8 3.2 L (3.5-5.1) mmol/L Chloride 102 99 (98-107) mmol/L Carbon Dioxide 31 30 (21-32) mmol/L Anion Gap 3 8 (3-11) BUN 15 22 (6-23) mg/dl Creatinine 0.58 L 0.55 L (0.6-1.2) mg/dl Est Cr Clr Drug Dosing 47.2 Not Reportable eGFR 86.45 87.56 BUN/Creatinine Ratio 25.9 H 40.0 H (10-20) Glucose 105 H 115 H (70-99(Fasting)) mg/dl Calcium 8.7 9.3 (8.6-10.3) mg/dl Phosphorus 3.6 (2.5-4.9) mg/dl Magnesium 2.0 2.0 (1.7-2.4) mg/dl Total Bilirubin 0.4 (0.2-1.0) mg/dl AST 23 (13-39) U/L ALT 12 (7-52) U/L Alkaline Phosphatase 44 (34-104) U/L Total Protein 6.7 (6.0-8.3) gm/dl Albumin 3.3 L 4.1 (3.4-5.0) gm/dl Globulin 2.6 (2.5-4.0) gm/dl Albumin/Globulin Ratio 1.6 (0.9-2) Lipase 57 (11-82) U/L Urine Color Yellow Urine Appearance Clear (Clear) Urine pH 5.5 (4.5-7.5) Ur Specific [place] 1.020 (1.000-1.030) Urine Protein Negative (Negative) Urine Glucose (UA) Negative (Negative) Urine Ketones Negative (Negative) Urine Blood 1+ H (Negative) Urine Nitrite Negative (Negative) Urine Bilirubin Negative (Negative) Urine Urobilinogen Negative (Negative) Ur Leukocyte Esterase Negative (Negative) Urine WBC (Auto) 0-5 (0-5) /hpf Urine RBC (Auto) 11-20 H (0-2) /hpf U Hyaline Cast (Auto) 0-2 (0-2) /lpf U Epithel Cells (Auto) 0-2 (0-2) /hpf Urine Bacteria (Auto) None Seen (None Seen) Diagnostic Findings Cervical Spine CT 08/14/24 18:41 Exam(s): CT C SPINE EXAM: CT Cervical Spine Without Intravenous Contrast CLINICAL HISTORY: Reason for exam: fall. TECHNIQUE: Axial computed tomography images of the cervical spine without intravenous contrast. CTDI is 20.17 mGy and DLP is 380.92 mGy-cm. Automated exposure control was utilized for the study. A dose lowering technique was utilized adhering to the principles of ALARA. COMPARISON: No relevant prior studies available. FINDINGS: Vertebrae: Osteopenia. No acute fracture or traumatic subluxation. Discs/spinal canal/neural foramina: Mild age-related degenerative changes predominantly involving the facet joints. No significant spinal canal stenosis. Soft tissues: Unremarkable. IMPRESSION: No acute findings in the cervical spine. Electronically signed by: Parris Montero M.D. 08/14/24 19:[address] 08/14/24 18:41 Exam(s): CT FACIAL Without Contrast EXAM: CT Maxillofacial Without Intravenous Contrast CLINICAL HISTORY: Reason for exam: fall. TECHNIQUE: Axial computed tomography images of the face without intravenous contrast. CTDI is 20.17 mGy and DLP is 380.92 mGy-cm. Automated exposure control was utilized for the study. A dose lowering technique was utilized adhering to the principles of ALARA. COMPARISON: No relevant prior studies available. FINDINGS: Bones/joints: No acute fracture. Soft tissues: Soft tissue contusion over the left aspect of the chin. Orbits: Lens replacements. Sinuses: Single opacified left ethmoid air cell. Sinuses otherwise clear. IMPRESSION: Soft tissue contusion over the left aspect of the chin. No acute osseous findings. Electronically signed by: Parris Montero M.D. 08/14/24 19:[address] 08/14/24 18:41 Exam(s): CT HEAD Without Contrast EXAM: CT Head Without Intravenous Contrast CLINICAL HISTORY: Reason for exam: fall. TECHNIQUE: Axial computed tomography images of the head/brain without intravenous contrast. CTDI is 37.51 mGy and DLP is 624.41 mGy-cm. Automated exposure control was utilized for the study. A dose lowering technique was utilized adhering to the principles of ALARA. COMPARISON: No relevant prior studies available. FINDINGS: Brain: Age-related parenchymal volume loss. Mild chronic small vessel ischemic change. Lynne-white matter differentiation maintained. No hemorrhage, mass effect, parenchymal edema, or midline shift. Ventricles: Unremarkable. No hydrocephalus. Bones/joints: Unremarkable. No acute fracture. Soft tissues: Unremarkable. Vasculature: Intracranial atherosclerosis. Sinuses: Unremarkable as visualized. Mastoid air cells: Unremarkable as visualized. No mastoid effusion. Orbits: Lens replacement. IMPRESSION: No acute intracranial process. Electronically signed by: Parris Montero M.D. 08/14/24 19:21 PM Shoulder X-Ray 08/14/24 18:41 Exam(s): XR LEFT SHOULDER, 2+ views EXAM: XR Left Shoulder Complete, 2 or More Views CLINICAL HISTORY: Reason for exam: fall. TECHNIQUE: Two or more views of the left shoulder. COMPARISON: No relevant prior studies available. FINDINGS: Bones/joints: Acute impacted nondisplaced fracture through the surgical neck of the humerus with possible involvement of the greater tuberosity as well. No dislocation. Degenerative change at the acromioclavicular joint. Osteopenia. Soft tissues: Unremarkable. IMPRESSION: Acute impacted nondisplaced fracture through the surgical neck of the humerus with possible involvement of the greater tuberosity as well. Electronically signed by: Parris Montero M.D. 08/14/24 19:39 PM Chest X-Ray 08/14/24 19:24 Exam(s): XR CXR 1 VIEW EXAM: XR Chest, 1 View CLINICAL HISTORY: Reason for exam: fall. TECHNIQUE: Frontal view of the chest. COMPARISON: 01/21/24 FINDINGS: Lungs: Unremarkable. No consolidation. Pleural space: Unremarkable. No pleural effusion or pneumothorax. Heart: Unremarkable. No cardiomegaly or pulmonary vascular congestion. Bones/joints: Acute proximal left humerus fracture. Reverse right shoulder arthroplasty. IMPRESSION: Acute proximal left humerus fracture. Clear lungs. Electronically signed by: Parris Montero M.D. 08/14/24 20:17 PM PG Care Time/CCT Total # of Minutes Spent Total Time Spent with Patient: Total time spent is greater than 50% in coordination of care (as documented) at patient's floor/unit and/or counseling patient: [place] [address] SUB INP/OBS CARE 2/35MIN Patient Type Established History Expanded Problem Focused Exam Expanded Problem Focused Medical Decision Making Moderate Complexity Diagnoses Closed fracture of left proximal humerus S42.202A CAD (coronary artery disease) I25.10 Hypertension I10 Restrictive cardiomyopathy I42.5 Esophagitis K20.90 Chronic constipation K59.09
[2024-08-15 19:45] VITALS: RESP 16
[2024-08-15] MEDS: ENOXAPARIN INJ 40 MG/0.4 ML SYR SQ SCH (20:45)
[2024-08-15] MEDS: ACETAMINOPHEN 325 MG TAB PO PRN (20:46)
[2024-08-15] MEDS: TEMAZEPAM 15 MG CAPSULE PO SCH (21:59)
--- NOTE | 2024-08-16 05:47 | Electrocardiogram Report ---
Test Reason : Blood Pressure : */* mmHG Vent. Rate : 75 BPM Atrial Rate : 75 BPM P-R Int : 146 ms QRS Dur : 136 ms QT Int : 476 ms P-R-T Axes : 74 -51 -2 degrees QTcB Int : 531 ms Normal sinus rhythm Indeterminate axis Right bundle branch block Inferior infarct , age undetermined T wave abnormality, consider lateral ischemia Abnormal ECG When compared with ECG of 18-Nov-2022 22:40, T wave inversion now evident in Lateral leads Confirmed by Aston Azevedo ([id number]) on 08/16/2024 5:47:24 AM Referred By: REFERRED SELF Confirmed By: Aston Azevedo
[2024-08-16 05:49] VITALS: BP 114/61; PULSE 74; TEMP 97.7; O2SAT 96
[2024-08-16 07:43] LABS: Basophils # (auto) 0.04 K/uL (0.00-0.20); Basophils % (auto) 0.6 %; Eosinophils # (auto) 0.28 K/uL (0.00-0.50); Eosinophils % (auto) 4.1 %; Hematocrit (blood only) 28.9 % (37.0-47.0); Hemoglobin 9.5 g/dl (12.0-16.0); Immature Granulocytes # (auto) 0.02 K/uL (0.01-0.20); Immature Granulocytes % (auto) 0.3 %; Lymphocytes # (auto) 1.34 K/uL (1.20-3.40); Lymphocytes % (auto) 19.8 %; Mean Corpuscular Hemoglobin 29.2 pg (25.0-34.0); Mean Corpuscular Hgb Conc 32.9 g/dL (32.0-36.0); Mean Corpuscular Volume 88.9 fL (80.0-100.0); Monocytes # (auto) 0.57 K/uL (0.11-0.59); Monocytes % (auto) 8.4 %; Neutrophils # (auto) 4.51 K/uL (1.40-6.50); Neutrophils % (auto) 66.8 %; Platelet Count 168 K/uL (130-400); RDW Coefficient of Variation 12.7 % (11.5-14.5); RDW Standard Deviation 41.3 fL (36.4-46.3); Red Blood Count 3.25 M/uL (4.20-5.40); White Blood Count 6.76 K/ul (4.8-10.8)
[2024-08-16 08:07] LABS: Albumin Level 3.1 gm/dl (3.4-5.0); BUN Creatinine Ratio 17.3 (10-20); Calcium 8.7 mg/dl (8.6-10.3); Creatinine Clr Calc Pharmacy 52.7 ml/min; Magnesium 1.8 mg/dl (1.7-2.4); Phosphorus 2.6 mg/dl (2.5-4.9); Potassium 3.5 mmol/L (3.5-5.1)
--- NOTE | 2024-08-16 10:42 | Discharge Summary ---
Discharge Summary Date of Service August 16, 2024 Principal Dx & Hospital Course #1 = Principal Diagnosis (1) Closed fracture of left proximal humerus: Presenting with ground level fall. Shoulder xray: Acute impacted nondisplaced fracture through the surgical neck of the humerus with possible involvement of the greater tuberosity as well. Head/Face CT: no fracture or acute process. Ortho consulted - non operative, nonweight bearing - sling for comfort for 6 weeks - clinic f/u in 1-2 weeks for repeat xrays Pain control: ice and Tylenol. Pt lives alone, family unstable to provide around the clock care. Plan to d/c to [facility] to day for rehab. (2) CAD (coronary artery disease): Continue ASA and Metoprolol (3) Hypertension: Imdur held due to low BP - can resume as BP allows (4) Restrictive cardiomyopathy: (5) Esophagitis: Continue PPI (6) Chronic constipation: Continue home dose of Linzess. Plan Dispo: [facility] today Notes For Next Care Provider Resume imdur as BP allows Admission HPI Per Admitting Provider The patient is an 88-year-old female with a past medical history including esophagitis, IBS with constipation, CAD, hypercholesterolemia, hypertension, restrictive cardiomyopathy, history of right shoulder arthroplasty, history of sternal fracture, and hyperlipidemia. She presents to the emergency department with left shoulder pain after a ground-level fall while putting together [employer] wreath ornaments. X-rays in the emergency department reveal a proximal left humeral fracture, with possible involvement of the greater tuberosity Discharge Exam General: NAD, VS as above, appears well Resp: normal respiratory effort, lungs clear to auscultation CV: RRR, no murmur, Extremities: left arm in sling, able to move hand/fingers distally Neuro: A&O x3, Skin: intact, bruising over chin from fall Discharge Plan Discharge Items Patient Disposition: Transfer Inpatient Rehab Fac Reason For Visit: CLOSED LEFT SHOULDER FRACTURE Discharge Diagnosis: Left shoulder fracture Condition on Discharge: Good Activity: As commented below Activity Comment: non weight bearing left arm, keep sling in place for 6 weeks Lifting: None Lifting Comment: with left arm Non-emergency contact: Primary Care Provider Call non-emergency contact if: you have any medication questions, your symptoms worsen and your pain is not controlled Follow-up/Referrals: Wilder Hdz MD [Surgeon] - (2-3 weeks for repeat x-rays) Pari Bales MD [Primary Care Provider] - Diet: Regular Addtl Attending Provider Instructions: Ms. Germain, You were hospitalized after a fall that resulted in a fracture of your humerus. Thankfully you did not need surgery and this is expected to heal on its own. You will be going to [facility] for rehab. You are not to do any lifting with the left arm and to remain in the sling for 6 weeks. For [facility]: Pain control mainly using ice Imdur was held for hypotension, can resume as BP allows. Drops in BP with pain medication. Addtl [employer] Provider Instructions: Orthopedic discharge instructions: There is a fracture in your left shoulder. Use the sling to stay comfortable. Please adjust as needed. You can remove for hygeine and getting dressed. You can take it off during sleep if more comfortable to position with pillows. We recommend repeat x-rays in our [place] clinic within 2 to 3 weeks to ensure that the alignment is maintained. Pending Studies at Discharge: No Stand-Alone Forms: My [facility] Skilled Items Patient informed of condition?: Yes DNR: Yes Discharge Level of Care: Acute rehab Communicable Disease: No Discharge Prognosis: Stable Lines: None Urinary Catheter: No Medications and DC Order Prescriptions: Continued omeprazole 40 mg capsule,delayed release(DR/EC) 40 mg PO DAILY Qty: 30 11RF potassium chloride 20 mEq tablet,ER particles/crystals 20 meq PO DAILY PRN (Reason: if taking torsemide) Rx Instructions: take with food temazepam 30 mg capsule 30 mg PO HS albuterol sulfate 2.5 mg /3 mL (0.083 %) solution for nebulization 2.5 mg continuous nebulization Q6 PRN (Reason: Shortness Of Breath) nitroglycerin 0.4 mg tablet, sublingual 0.4 mg sublingual UD PRN (Reason: Chest Pain) ergocalciferol (vitamin D2) 1,250 mcg (50,000 unit) capsule 1,250 mcg PO WK Rx Instructions: MONDAYS torsemide 20 mg tablet 20 mg PO DAILY PRN (Reason: Fluid Retention) aspirin 81 mg Tablet,Delayed Release (Dr/Ec) 81 mg PO DAILY metoprolol succinate 25 mg tablet extended release 24 hr 12.5 mg PO BID lovastatin 40 mg tablet 40 mg PO DAILY Rx Instructions: PER EXT MED HX--40 MG DAILY, PER GMG--40 MG BID. montelukast [Singulair] 10 mg Tablet 10 mg PO DAILY PRN (Reason: Congestion) sertraline 50 mg Tablet 25 mg PO BID Rx Instructions: UNABLE TO VERIFY THIS MED. Linzess 290 mcg capsule 290 mcg PO DAILYBB Held isosorbide mononitrate 120 mg tablet extended release 24 hr 60 mg PO BID Hold Instructions: Provider's Order Discharge Orders: Discharge Order (Routine); Ordered 08/16/24 Ordered By: Marlene Montesinos Admission Data Admit Date/Time: 08/14/24 22:10 Attending Provider: Madeline Rosa Admit Provider: Best Pabon Primary Care Provider: Pari Bales Other Providers: Wilder Hdz; Best Pabon; [facility] Stay Data Consultations 08/14/24 20:41 ED Decision to Admit Stat 08/14/24 22:10 Consult Orthopedic Surgery Routine Diagnostic Imagining Performed Cervical Spine CT 08/14/24 18:41 Exam(s): CT C SPINE EXAM: CT Cervical Spine Without Intravenous Contrast CLINICAL HISTORY: Reason for exam: fall. TECHNIQUE: Axial computed tomography images of the cervical spine without intravenous contrast. CTDI is 20.17 mGy and DLP is 380.92 mGy-cm. Automated exposure control was utilized for the study. A dose lowering technique was utilized adhering to the principles of ALARA. COMPARISON: No relevant prior studies available. FINDINGS: Vertebrae: Osteopenia. No acute fracture or traumatic subluxation. Discs/spinal canal/neural foramina: Mild age-related degenerative changes predominantly involving the facet joints. No significant spinal canal stenosis. Soft tissues: Unremarkable. IMPRESSION: No acute findings in the cervical spine. Electronically signed by: Parris Montero M.D. 08/14/24 19:[address] 08/14/24 18:41 Exam(s): CT FACIAL Without Contrast EXAM: CT Maxillofacial Without Intravenous Contrast CLINICAL HISTORY: Reason for exam: fall. TECHNIQUE: Axial computed tomography images of the face without intravenous contrast. CTDI is 20.17 mGy and DLP is 380.92 mGy-cm. Automated exposure control was utilized for the study. A dose lowering technique was utilized adhering to the principles of ALARA. COMPARISON: No relevant prior studies available. FINDINGS: Bones/joints: No acute fracture. Soft tissues: Soft tissue contusion over the left aspect of the chin. Orbits: Lens replacements. Sinuses: Single opacified left ethmoid air cell. Sinuses otherwise clear. IMPRESSION: Soft tissue contusion over the left aspect of the chin. No acute osseous findings. Electronically signed by: Parris Montero M.D. 08/14/24 19:[address] 08/14/24 18:41 Exam(s): CT HEAD Without Contrast EXAM: CT Head Without Intravenous Contrast CLINICAL HISTORY: Reason for exam: fall. TECHNIQUE: Axial computed tomography images of the head/brain without intravenous contrast. CTDI is 37.51 mGy and DLP is 624.41 mGy-cm. Automated exposure control was utilized for the study. A dose lowering technique was utilized adhering to the principles of ALARA. COMPARISON: No relevant prior studies available. FINDINGS: Brain: Age-related parenchymal volume loss. Mild chronic small vessel ischemic change. Lynne-white matter differentiation maintained. No hemorrhage, mass effect, parenchymal edema, or midline shift. Ventricles: Unremarkable. No hydrocephalus. Bones/joints: Unremarkable. No acute fracture. Soft tissues: Unremarkable. Vasculature: Intracranial atherosclerosis. Sinuses: Unremarkable as visualized. Mastoid air cells: Unremarkable as visualized. No mastoid effusion. Orbits: Lens replacement. IMPRESSION: No acute intracranial process. Electronically signed by: Parris Montero M.D. 08/14/24 19:21 PM Shoulder X-Ray 08/14/24 18:41 Exam(s): XR LEFT SHOULDER, 2+ views EXAM: XR Left Shoulder Complete, 2 or More Views CLINICAL HISTORY: Reason for exam: fall. TECHNIQUE: Two or more views of the left shoulder. COMPARISON: No relevant prior studies available. FINDINGS: Bones/joints: Acute impacted nondisplaced fracture through the surgical neck of the humerus with possible involvement of the greater tuberosity as well. No dislocation. Degenerative change at the acromioclavicular joint. Osteopenia. Soft tissues: Unremarkable. IMPRESSION: Acute impacted nondisplaced fracture through the surgical neck of the humerus with possible involvement of the greater tuberosity as well. Electronically signed by: Parris Montero M.D. 08/14/24 19:39 PM Chest X-Ray 08/14/24 19:24 Exam(s): XR CXR 1 VIEW EXAM: XR Chest, 1 View CLINICAL HISTORY: Reason for exam: fall. TECHNIQUE: Frontal view of the chest. COMPARISON: 01/21/24 FINDINGS: Lungs: Unremarkable. No consolidation. Pleural space: Unremarkable. No pleural effusion or pneumothorax. Heart: Unremarkable. No cardiomegaly or pulmonary vascular congestion. Bones/joints: Acute proximal left humerus fracture. Reverse right shoulder arthroplasty. IMPRESSION: Acute proximal left humerus fracture. Clear lungs. Electronically signed by: Parris Montero M.D. 08/14/24 20:17 PM Pending Results Patient Have Any Pending Studies at Discharge: No Discharge Instructions Given to Patient (Per Discharging Provider) Ms. Germain, Derrell were hospitalized after a fall that resulted in a fracture of your humerus. Thankfully you did not need surgery and this is expected to heal on its own. You will be going to [facility] for rehab. You are not to do any lifting with the left arm and to remain in the sling for 6 weeks. For [facility]: Pain control mainly using ice Imdur was held for hypotension, can resume as BP allows. Drops in BP with pain medication. Total Time Total Time Spent Total Time Spent (In Minutes): Time spent day of discharge 35 minutes including direct patient care, medication reconciliation, documentation, review of labs and images, and coordination of care. Coding Level of Care Code 91523 INP/OBS DISCH >30 MIN Diagnoses Closed fracture of left proximal humerus S42.202A CAD (coronary artery disease) I25.10 Hypertension I10 Restrictive cardiomyopathy I42.5 Esophagitis K20.90 Chronic constipation K59.09
== END 2024-08-16 12:01 | DRG 563 ==
LOC: ED 18:22 → 3W 22:10 → SUATTDRO 22:10 → 3W 23:28